=== PATIENT | male | born 1965 | race Caucasian/White ===

== ENCOUNTER 2024-04-06 08:52 | Outpatient (OUT) | payer OTHER, SELFPAY ==
[2024-04-06 09:15] LABS: Basophils Percent Auto 0.3 % (0.2-2.0); Eosinophils Absolute Auto 0.2 10^3/uL (0.0-0.7); Eosinophils Percent Auto 2.8 % (0.9-7.0); Hematocrit 40.4 % (42.0-54.0); Hemoglobin 13.8 g/dL (14.0-18.0); Immature Granulocytes Abs Auto 0.01 10^3/uL (0.00-0.03); Immature Granulocytes Pct Auto 0.2 % (0.0-0.5); Lymphocytes Absolute Auto 1.7 10^3/uL (1.2-3.8); Lymphocytes Percent Auto 29.2 % (20.5-60.0); Mean Corpuscular HGB Conc 34.2 g/dL (29.9-35.2); Mean Corpuscular Hemoglobin 30.9 pg (25.9-34.0); Mean Corpuscular Volume 90.4 fL (80.0-94.0); Mean Platelet Volume 9.1 fL (9.5-13.5); Monocytes Absolute Auto 0.7 10^3/uL (0.3-0.8); Monocytes Percent Auto 11.3 % (1.7-12.0); Neutrophils Absolute Auto 3.2 10^3/uL (1.4-6.5); Neutrophils Percent Auto 56.2 % (43.0-75.0); Platelet Count 215 10^3/uL (150-450); Red Blood Count 4.47 10^6/uL (4.70-6.10); Red Cell Distribution Width 12.5 % (11.0-15.0); White Blood Count 5.8 10^3/uL (4.0-11.0)
[2024-04-06 10:07] LABS: Estimated Average Glucose 105 mg/dL; Glycohemoglobin A1C 5.3 % (4.5-6.2)
[2024-04-06 11:03] LABS: Prostate Specific Antigen Scrn 0.68 ng/mL (<=4.00)
[2024-04-06 11:08] LABS: Alanine Aminotransferase 21 U/L (16-63); Albumin Globulin Ratio 1.1; Albumin Level 3.7 g/dL (3.4-5.0); Alkaline Phosphatase 39 U/L (46-116); Anion Gap 13.3; Aspartate Amino Transferase 16 U/L (15-37); Bilirubin Total 0.7 mg/dL (0.2-1.0); Calcium 8.8 mg/dL (8.5-10.1); Carbon Dioxide 23.3 mmol/L (21.0-32.0); Chloride 103 mmol/L (98-107); Cholesterol 186 mg/dL (<=200); Estimated GFR (African America >60 (>=60 mL/min/1.73m^2); Estimated GFR (Non-African Ame >60 (>=60 mL/min/1.73m^2); Free T3 2.93 pg/mL (2.18-3.98); Globulin 3.3 g/dL; Glucose 92 mg/dL (74-106); HDL Cholesterol 37 mg/dL (40-60); Potassium 3.6 mmol/L (3.5-5.1); Sodium 136 mmol/L (136-145); Thyroid Stimulating Hormone 2.259 uIU/mL (0.358-3.740); Triglycerides 163 mg/dL (<=150); VLDL CHOLESTEROL 32.6 mg/dL
[2024-04-07 04:08] LABS: Insulin 19.3 uIU/mL (2.6-24.9)
== END 2024-04-06 08:53 | disposition home or self-care (01) ==
LOC: LAB 08:54
PROVIDERS: PCP Family Medicine; Visit Provider Family Medicine
DX: Z00.00 Encounter for general adult medical examination without abnormal findings (principal); E05.90 Thyrotoxicosis, unspecified without thyrotoxic crisis or storm
CPT/HCPCS: 36415; 80053; 80061; 83036; 83525; 84436; 84443; 84481; 85025; G0103

== ENCOUNTER 2024-04-10 09:00 | Outpatient (REF) | payer OTHER, SELFPAY ==
[2024-04-10 10:40] LABS: Internal Control Within Normal Limits; Occult Blood Positive
== END 2024-04-10 09:01 | disposition home or self-care (01) ==
LOC: LAB 09:00
PROVIDERS: PCP Family Medicine; Visit Provider Family Medicine
DX: Z00.00 Encounter for general adult medical examination without abnormal findings (principal)
CPT/HCPCS: G0328

== ENCOUNTER 2024-05-28 10:48 | Outpatient (OUT) | payer OTHER, SELFPAY ==
--- OUTSIDE RECORDS SUMMARY | 2024-05-28 10:57 | XMS_ITS | CCD ---
Author Organization [facility] Care Team Providers Care Technical Service Representative Name Role Phone JASIEL WILKERSON Admitting Unavailable JASIEL WILKERSON Attending Unavailable PANDA ANSARI Primary Care Unavailable [place] Procedure Practitioner Unavailab le EBRAHEIM, MIKE Admitting Unavailable EBRAHEIM, MIKE Primary Care Unavailable EBRAHEIM, MIKE Attending Unavailable EBRAHEIM, MIKE Referring Unavailable EBRAHEIM, MIKE Surgeon Unavailable VALERIE SAWANT Surgeon Unavailable [place] Procedure Practitioner Unavailab Panda Marvin Primary Care Physician Faustino TORRES Attending Unavailable Panda Ansari Referring Unavailable Allergies Allergy Classification Reported Allergen(s) Allergy Type Date of Onset Reaction(s) Facility (2 sources) Acetaminophen / oxyCODONE; Translations: [PERCOCET] Drug Allergy 5 [facility] Repository (1 source) Acetaminophen / oxyCODONE; Translations: [acetaminophen-ox ycodone] Drug Allergy Nausea and vomiting (disorder) [facility] (1 source) No Known Medication Allergies; Translations: [No Known Medication Allergies] Propensity to adverse reactions (disorder) [facility] Repository Medications Current Medications Medication Drug Class(es) Dates Sig (Normalized) Sig (Original) aspirin 81 mg delayed release oral tablet (1 source) Platelet Aggregation Inhibitor, Nonsteroidal Anti-inflammatory Drug Start: 05-09-2024 take 1 tablet by mouth once daily aspirin 81 mg Oral EC Tab 81 mg = 1 tab(s), Oral, Daily, Refills(s) 0 Start Date: 05/09/24 Status: Ordered Fish Oils (1 source) Start: 05-09-2024 take 1000 mg by mouth once daily [place]-3 Fish Oil 1,000 mg, Oral, Daily, Refills(s) 0 Start Date: 05/09/24 Status: Ordered Multi Vitamins oral tablet (1 source) Start: 05-09-2024 take 1 tablet by mouth once daily Multi Vitamins oral tablet 1 tab(s), Oral, Daily, Refill(s) 0 Start Date: 05/09/24 Status: Ordered Problems Problem Classification Problem Date Documented Da te Episodic/Chronic Cancer of head and neck (1 source) 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 Other gastrointestinal disorders (1 source) Abnormal feces; Translations: [Other fecal abnormalities] Onset: 05-09-2024 Episodic Other gastrointestinal disorders (1 source) Occult blood in stools 05-09-2024 Episodic Other injuries and conditions due to external causes (4 sources) Other specified injury of left quadriceps muscle, fascia and tendon, subsequent encounter; Translations: [OTH INJ LT QUAD MUSC FASC TEND SUB] Onset: 07-21-2018 Episodic Other nutritional; endocrine; and metabolic disorders (1 source) Body mass index 30+ - obesity 05-09-2024 Chronic Other nutritional; endocrine; and metabolic disorders (1 source) Obesity caused by energy imbalance 04-16-2024 Chronic Results Test Name Value Interpretation Reference Range [facility] ity Ambulatory Visit Summaryon 1 07-09-2023 Ambulatory Visit Summary Ambulatory Visit Summary RANDY LEROY Danya :1965 Visit Date:05/09/2024 Ambulatory Visit Instructions Your Diagnosis Positive fecal occult blood test Your Care Team Attending Physician - BRIAN BERNARDO, Faustino Ramesh Primary Care Physician - Panda Ansari MD Referring Physician - Panda Ansari MD This Is Your Medications List Contact prescribing physician if questions or concerns aspirin (aspirin 81 mg Oral EC Tab) multivitamin (Multi Vitamins oral tablet) omega-3 polyunsaturated fatty acids (Springdale-3 Fish Oil) Procedures Performed Arthroplasty of right hip, Left quadriceps injury, Repair of right inguinal hernia. Discharge Vitals Heart Rate (Peripheral) 72 Respiratory Rate 16 Blood Pressure 136/96 Height 188 cm Height 74 in Weight 118 kg Weight 259.6 lb BMI 33.39 Medications What How Much When Instructions Unchanged aspirin (aspirin 81 mg Oral EC Tab) 1 Tablets By Mouth Every day Contact prescribing physician if questions or concerns Unchanged multivitamin (Multi Vitamins oral tablet) 1 Tablets By Mouth Every day Contact prescribing physician if questions or concerns Unchanged omega-3 polyunsaturated fatty acids (Springdale-3 Fish Oil) 1,000 Milligram By Mouth Every day Contact prescribing physician if questions or concerns Allergies Percocet (Nausea and vomiting) Problems Ongoing - Any problem that you are currently receiving treatment for. BMI 33.0-33.9,adult Carcinoma in situ of lip Obesity due to excess calories Positive fecal occult blood test Patient Survey You may receive a survey via text or e-mail asking about your office visit. Please share your experience with us by completing your survey. We appreciate your feedback and thank you for choosing us for your care. Normal [facility] Vital Signs Date Time Vital Sign Value Performing Clinician Aurelia harding 05-09-2024 14:23-0500 Blood Pressure Location Faustino NILL [facility] 05-09-2024 14:23-0500 Diastolic blood pressure 96 mm[Hg] Faustino NILL [facility] 05-09-2024 14:23-0500 Heart rate 72 /min Faustino NILL [facility] 05-09-2024 14:23-0500 Respiratory rate 16 /min Price SquidL [facility] 05-09-2024 14:23-0500 Systolic blood pressure 136 mm[Hg] [facility] Encounter Date Encounter Type Care Provider Facility Start: 05-09-2024 End: 05-09-2024 ambulatory Faustino TORRES Facility:[facility] Start: 05-09-2024 End: 05-09-2024 Patient encounter procedure Faustino Ramesh NILL [facility] Start: 05-07-2024 ambulatory Faustino TORRES Facility:[facility] Start: 04-12-2024 ambulatory Faustino TORRES Facility:[facility] Start: 07-21-2018 End: 10-13-2018 Patient encounter procedure JASIEL WILKERSON Facility: Start: 06-02-2018 End: 06-03-2018 Patient encounter procedure [place] Facility:[facility] Procedures Date Procedure Procedure Detail Performing Clinician Start: 06-02-2018 ANESTH UPPER LEG SURGERY VALERIE SAWANT Start: 06-02-2018 REPAIR OF THIGH MUSCLE MIKE EBRAHEIM Left quadriceps injury Shadi josefina TORRES Repair of joint of r ight hip Faustino TILLMANL Repair of right ingu inal hernia Faustino TILLMANL Immunizations Immunization Date Immunization Notes Care Provider Riaz ritchie 07-13-2021 SARS-CoV-2 (COVID-19 ) mRNA-[address] [facility] Comment on above: Result Comment: 2023: TPV50 11-14-2020 SARS-CoV-2 (COVID-19 ) Ad26 vaccine, recombinant Faustino TILLMANL [facility] Comment on above: Result Comment: 2023: --[employer] POPULATION/OCCUPATION-- Payers Date Payer Category Payer Unknown [id number] 1965 Unknown [id number] 1965 Unknown [id number] [id number] 1965 Unknown [id number] 1958 Unknown [id number] Social History Date Type Detail Facility Start: 05-09-2024 Tobacco smoking status Never s moked tobacco (finding) [facility] Tobacco smoking status Never Fishe [facility] Sex Assigned At Male [facility] Functional Status Date Assessment Result Facility 05-09-2024 Functional Status N/A [facility] Clinical Note 05-09-2024 Note Date & Type Note Facility 05-09-2024 Note General Surgery Offi ce/Clinic Note Chief Complaint consultation for positive occult stool HPI Staff 59 year old male presents on consultation from Dr. Hoy for positive occult stool. Denies abdominal or rectal pain. No rectal bleeding or change in bowel habits. Denies nausea or vomiting. No unexplained weight loss. Never had colonoscopy in the past. No known family history of colon cancer. History of Present Illness 59 yo male referred for positive fecal occult blood test; denies change in bms or gross blood in stools, no abd complaints; abd operations significant for RIHR, no previous colonoscopy; on baby asa, no NSAID use; no tobacco use; no fmhx of GI malignancy or IBD. Review of Systems PHQ Score Initial Depression Screen Score: 0 SCORE ROS - Provider Constitutional: no fever, no sweats, no weight loss. Eyes: no glasses, no blurred vision, no visual loss. ENMT: no dentures, no hoarseness, no swallowing difficulties, no hearing loss, no ear infection(s), no nose bleeds. Cardiovascular: normal blood pressure, no chest pain, regular heartbeat, no heart murmur. Respiratory: no shortness of breath, no cough, no asthma, no wheezing. Gastrointestinal: no nausea, no vomiting, no diarrhea, no constipation, no blood in stool, no change in bowel habits, no abdominal pain, no hepatitis. Genitourinary: no kidney stones, no urine infection, no dysuria. Musculoskeletal: no pain, no weakness. Skin: no changing moles, no rash, no skin lumps. Neurologic: no seizures, no epilepsy, no headache. Psychiatric: no emotional or psychiatric problem. Heme/Lymph: no bleeding problems, no anemia, no blood clots, no transfusions. Allergy/Immunologic: no swollen lymph nodes/glands, no IV drug abuse. Other: Additional ROS info: Except as noted in the above Review of Systems and in the History of Present Illness, all other systems have been reviewed and are negative or noncontributory. Physical Exam Vitals & Measurements HR: 72(Peripheral) RR: 16 BP: 136/96 HT: 74 in HT: 188 cm WT: 118 kg WT: 259.6 lb BMI: 33.39 HEENT: normal conjunctiva, sclera clear, no scleral icterus, EOM intact, PERRLA, oral mucosa moist without lesions. Neck: trachea midline, no mass, symmetric, no thyromegaly or nodules, no adenopathy Respiratory: lungs CTA, respirations non labored. Cardiovascular: regular rate and rhythm, no murmur, no pedal edema or varicosities. Gastrointestinal: soft, non distended, no tenderness, no masses, no palpable hernias, diastasis recti no, no hepatosplenomegaly; normal bs Lymphatic: no cervical adenopathy, no supraclavicular adenopathy. Musculoskeletal: normal gait, digits and nails without infection, nodes, cyanosis, clubbing. Skin: no rashes, no lesions, no ulcers, no subcutaneous nodules, induration. Psychiatric/Neuro: oriented to time, place, person, judgement normal, affect appropriate for age, insight intact, no focal deficits. Tests: labs reviewed, review of old records completed , Discussed surgical options, risks, and possible complications with patient. Assessment/Plan 1. Positive fecal occult blood test (R19.5: Other fecal abnormalities) plan colonoscopy under anesthesia, informed consent obtained. Follow-up No qualifying data available Problem List/Past Medical History Ongoing BMI 33.0-33.9,adult Carcinoma in situ of lip Obesity due to excess calories Positive fecal occult blood test Historical No qualifying data Procedure/Surgical History Arthroplasty of right hip, Left quadriceps injury, Repair of right inguinal hernia. Medications aspirin 81 mg Oral EC Tab, 81 mg= 1 tab(s), Oral, Daily Multi Vitamins oral tablet, 1 tab(s), Oral, Daily Springdale-3 Fish Oil, 1000 mg, Oral, Daily Allergies Percocet (Nausea and vomiting) Social History Alcohol Never., 05/06/2024 Substance Abuse Never., 05/06/2024 Tobacco Never (less than 100 in lifetime) Tobacco Use:. Never Smokeless Tobacco Use:., 05/09/2024 Family History Heart disease: Father. Immunizations Vaccine Date Status Comments SARS-CoV-2 (COVID-19) mRNA-1273 vaccine 07/13/2021 Recorded 2024-04-16: TPV50 SARS-CoV-2 (COVID-19) Ad26 vaccine 11/14/2020 Recorded 2024-04-16: --SELECT TARGET POPULATION/OCCUPATION-- [facility] Comment on above: Result Comment: Elec tronically Signed By: BRIAN BERNARDO, Faustino Gray\Date and Time Signed: 05/09/24 14:44 EST Evaluation + Plan note Note Date & Type Note Facility Evaluation + Plan note No data available for this section [facility] Hospital Discharge instructions Note Date & Type Note Facility Hospital Discharge instructions No data available for this section [facility] Progress note Note Date & Type Note Facility Progress note No data available for this section [facility] Summary Purpose Family History No Family History Records FoundNo Family History Records Found No data available for this section No Family History Records Found Advance Directives No Advanced Directives Records FoundNo Advanced Directives Records FoundNo Advanced Directives Records Found Additional Source Comments (unrecognized sect ion and content) No Status Records FoundNo Status Records FoundNo Status Records Found INFORMATION SOURCE (unrecogn ized section and content) DATE CREATED AUTHOR 10/14/2018 [facility] DATE CREATED AUTHOR AUTHOR'S ORGANIZ ATION 06/04/2020 [facility] DATE CREATED AUTHOR AUTHOR'S ORGANIZ ATION 05/11/2024 [facility] Patient Care team informatio n (unrecognized section and content) Personnel Name: Panda Ansari MD Address: Address: [address] [place] [address] FOR RECORDS PERTAINING TO PATIENTS WHO ARE OR HAVE BEEN ENROLLED IN A CHEMICAL DEPENDENCY/SUBSTANCEABUSE PROGRAM, SOME INFORMATION MAY BE OMITTED. This clinical summary was aggregated from multiple sources. Caution should be exercised in using it in the provision of clinical care. This summary normalizes information from multiple sources, and as a consequence, information in this document may materially change the coding, format and clinical context of patient data. In addition, data may be omitted in some cases. CLINICAL DECISIONS SHOULD BE BASED ON THE PRIMARY CLINICAL RECORDS. [facility]. provides no warranty or guarantee of the accuracy or completeness of information in this document.
== END 2024-05-28 10:49 | disposition home or self-care (01) ==
LOC: PST 10:48
PROVIDERS: PCP Family Medicine; Visit Provider Surgery
DX: Z01.818 Encounter for other preprocedural examination (principal); R19.5 Other fecal abnormalities

== ENCOUNTER 2024-06-06 10:02 | Day surgery (SDC) | payer OTHER, SELFPAY ==
--- NOTE | 2024-06-06 | OP_ITS ---
OPERATION DATE: 06/06/2024 PREOPERATIVE DIAGNOSIS: Positive fecal occult blood test. POSTOPERATIVE DIAGNOSIS: Sigmoid diverticulosis, mild. PROCEDURE: Colonoscopy to cecum. SURGEON: Faustino Escobar M.D. ANESTHESIA: Monitored anesthesia care. ESTIMATED BLOOD LOSS: Zero. INDICATIONS AND CONSENT: Patient is a 59-year-old male who presents for evaluation of positive fecal occult blood test. Indications, risks, benefits, alternatives of proceeding with colonoscopy were explained extensively to the patient, including the risks of bleeding, colon perforation or anesthetic complications. All of his questions were answered. Informed consent was obtained. PROCEDURE: Patient brought to the operating room, placed in the left lateral decubitus position. Monitored anesthesia care was provided. Rectal exam was performed which showed no masses or blood. The scope was inserted into the anal canal. Under direct visualization was advanced. With the aid of abdominal compression, it was advanced to the cecum where cecal markings were clearly identified. Upon withdrawal of the scope, mucosal surfaces were carefully examined. There were no mass lesions or polyps. No inflammatory changes or ulcerations. There was mild sigmoid diverticulosis without inflammatory changes or scarring. The scope was retroflexed in the anal canal. There was no significant hemorrhoidal disease. Scope was then withdrawn. Patient tolerated procedure well, was sent to recovery room in good condition.f/u screening colonoscopy should be in 10 years. CC: Zohaib Ansari M.D. [facility] CENTERJose Maria
[2024-06-06 10:10] VITALS: BP 165/87; PULSE 86; TEMP 36.1; O2SAT 98; BMI 32.6
--- OUTSIDE RECORDS SUMMARY | 2024-06-06 10:16 | XMS_ITS | CCD ---
Author Organization [facility] Care Team Providers Care Shipper Name Role Phone JASIEL WILKERSON Admitting Unavailable JASIEL WILKERSON Attending Unavailable PANDA ANSARI Primary Care Unavailable [place] Procedure Practitioner Unavailab le EBRAHEIM, MIKE Admitting Unavailable EBRAHEIM, MIKE Primary Care Unavailable EBRAHEIM, MIKE Attending Unavailable EBRAHEIM, MIKE Referring Unavailable EBRAHEIM, MIKE Surgeon Unavailable VALERIE SAWANT Surgeon Unavailable [place] Procedure Practitioner Unavailab Panda Marvin Primary Care Physician [phone] Faustino TORRES Attending Unavailable Panda Ansari Referring Unavailable Allergies Allergy Classification Reported Allergen(s) Allergy Type Date of Onset Reaction(s) Facility (2 sources) Acetaminophen / oxyCODONE; Translations: [PERCOCET] Drug Allergy 5 [facility] Repository (1 source) Acetaminophen / oxyCODONE; Translations: [acetaminophen-ox ycodone] Drug Allergy Nausea and vomiting (disorder) [facility] (1 source) No Known Medication Allergies; Translations: [No Known Medication Allergies] Propensity to adverse reactions (disorder) [facility] Repository Medications Current Medications Medication Drug [...] take 1000 mg by mouth once daily [place]-3 Fish Oil 1,000 mg, Oral, Daily, Refills(s) [...] Results Test Name Value Interpretation Reference Range [facility] ity Ambulatory Visit Summaryon 1 07-09-2023 Ambulatory [...] Vitamins oral tablet) omega-3 polyunsaturated fatty acids ([place]ribner-3 Fish Oil) Procedures Performed Arthroplasty of right [...] or concerns Unchanged omega-3 polyunsaturated fatty acids ([place]ribner-3 Fish Oil) 1,000 Milligram By Mouth Every [...] for choosing us for your care. Normal [facility] Vital Signs Date Time Vital Sign Value Performing Clinician Aurelia harding 05-09-2024 14:23-0500 Blood Pressure Location Faustino NILL [facility] 05-09-2024 14:23-0500 Diastolic blood pressure 96 mm[Hg] Faustino NILL [facility] 05-09-2024 14:23-0500 Heart rate 72 /min Faustino NILL [facility] 05-09-2024 14:23-0500 Respiratory rate 16 /min [employer] [facility] 05-09-2024 14:23-0500 Systolic blood pressure 136 mm[Hg] [facility] Date Encounter Type Care Provider Facility Start: 05-09-2024 End: 05-09-2024 ambulatory Faustino TORRES Facility:[facility] Start: 05-09-2024 End: 05-09-2024 Patient encounter procedure Faustino Ramesh NILL [facility] Start: 05-07-2024 ambulatory Faustino TORRES Facility:[facility] Start: 04-12-2024 ambulatory Faustino TORRES Facility:[facility] Start: 07-21-2018 End: 10-13-2018 Patient encounter procedure JASIEL WILKERSON Facility: Start: 06-02-2018 End: 06-03-2018 Patient encounter procedure [place] Facility:[facility] Procedures Date Procedure Procedure Detail Performing [...] SARS-CoV-2 (COVID-19 ) mRNA-1273 vaccine Faustino TILLMANL [facility] Comment on above: Result Comment: 2023: TPV50 11-14-2020 SARS-CoV-2 (COVID-19 ) Ad26 vaccine, recombinant Faustino TILLMANL [facility] Comment on above: Result Comment: 2023: --SELECT T[employer] POPULATION/OCCUPATION-- Payers Date Payer Category Payer Unknown [id number] 1965 Unknown [id number] 1965 Unknown [id number] 1965 Unknown [id number] 1959 Unknown [id number] Social History Date Type Detail Facility Start: 05-09-2024 Tobacco smoking status Never s moked tobacco (finding) [facility] Tobacco smoking status Never Fishe [facility] Sex Assigned At Male [facility] Functional Status Date Assessment Result Facility 05-09-2024 Functional Status N/A [facility] Clinical Note 05-09-2024 Note Date & Type [...] Vitamins oral tablet, 1 tab(s), Oral, Daily Scribner-3 Fish Oil, 1000 mg, Oral, Daily Allergies Percocet (Nausea and vomiting) Social History Alcohol Never., 05/06/2024 Substance Abuse Never., 05/06/2024 Tobacco Never (less than 100 in lifetime) Tobacco Use:. Never Smokeless Tobacco Use:., 05/09/2024 Family History Heart disease: Father. Immunizations Vaccine Date Status Comments SARS-CoV-2 (COVID-19) mRNA-1273 vaccine 07/13/2021 Recorded 2024-04-16: TPV50 SARS-CoV-2 (COVID-19) Ad26 vaccine 11/14/2020 Recorded 2024-04-16: --SELECT TARGET POPULATION/OCCUPATION-- [facility] Comment on above: Result Comment: Elec tronically Signed By: BRIAN BERNARDO, Faustino Gray\Date and Time Signed: 05/09/24 14:44 EST Evaluation + Plan note Note Date & Type Note Facility Evaluation + Plan note No data available for this section [facility] Hospital Discharge instructions Note Date & Type Note Facility Hospital Discharge instructions No data available for this section [facility] Progress note Note Date & Type Note Facility Progress note No data available for this section [facility] Summary Purpose Family History No Family [...] and content) DATE CREATED AUTHOR 10/14/2018 [facility] DATE CREATED AUTHOR AUTHOR'S ORGANIZ ATION 06/04/2020 [facility] DATE CREATED AUTHOR AUTHOR'S ORGANIZ ATION 05/11/2024 [facility] Patient Care team informatio n (unrecognized section and content) Personnel Name: Panda Ansari MD Address: Address: [address] [place] [address] FOR RECORDS PERTAINING TO PATIENTS WHO ARE [...] BE BASED ON THE PRIMARY CLINICAL RECORDS. [facility] [employer] [facility]. provides no warranty or guarantee of the accuracy or completeness of information in this document.
[2024-06-06] MEDS: 0.9 % SODIUM CHLORIDE 500 ML 50 ML IV (10:29)
[2024-06-06 12:43] VITALS: BP 90/53; PULSE 86; O2SAT 94
[2024-06-06 13:00] VITALS: BP 114/83; PULSE 89; O2SAT 96
== END 2024-06-06 13:25 | disposition home or self-care (01) ==
PROVIDERS: PCP Family Medicine; Visit Provider Surgery
PROC: (CPT 00811; principal; 2024-06-06 11:15)
DX: R19.5 Other fecal abnormalities (principal); K57.30 Diverticulosis of large intestine without perforation or abscess without bleeding; I48.91 Unspecified atrial fibrillation
CPT/HCPCS: 00811; 45378; J1100

== ENCOUNTER 2025-02-25 17:01 | Outpatient (OUT) | payer OTHER, SELFPAY ==
--- OUTSIDE RECORDS SUMMARY | 2023-12-12 12:00 | XMS_ITS ---
Author Organization The [facility] in [place] Address [address] [place] [address] Care Team Providers Care Certified Alcohol Counselor Name Role Phone George Muhammad Primary Care Provider [phone] PANDA MUHAMMAD Unavailable [phone] Allergies No Known Allergies REASON FOR VISIT Wellness / swollen leg, hit right leg with electrical box Social History Tobacco Use: Social History Observation Description Date Details (start date - stop date) Never Smoker NA - NA Tobacco Control (Standard) Question Answer Notes Tobacco use: Nonsmoker AUDIT-C (Standard) Question Answer Notes Did you have a drink contain ing alcohol in the past year? Yes How often did you have six o r more drinks on one occasion in the past year? Never (0 point) How many drinks did you have on a typical day when you were drinking in the past year? 1 or 2 drinks (0 point) How often did you have a dri nk containing alcohol in the past year? 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 Problem Bronchitis (11115345) Bronchitis (J40) Active confirmed Vital Signs Weight 269 lbs 12/12/2023 Height 74 in 12/12/2023 Blood pressure systolic 132 mm Hg 12/12/19 24 Blood pressure diastolic 82 mm Hg 024 BMI 34.53 kg/m2 12/12/2023 Encounters Encounter Location Date Provider Diagnosis [facility] [address] [facility] [address] 12/12/2023 PANDA MUHAMMAD Well adult Z00.00 a nd Snoring R06.83 Assessments Encounter Date Diagnosis (ICD Code) Assessment Notes Treatment Notes Treatment Clinical Notes Section Notes 12/12/2023 Well adult (ICD-10 - Z00.00) 12/12/2023 Snoring (ICD-10 - R06.83) defers on sleep study Plan Of Treatment Treatment Notes Assessment Notes Snoring defers on sleep stud y Pending Test Test Name Order Date CMP (COMPLETE METABOLIC PANEL) 4 HEMOGLOBIN A1C (GLYCO) 12/12/2023 INSULIN, TOTAL 12/12/2023 LIPID PANEL (CHOL/TRIG/HDL/LDL) 12/12/19 24 CBC WITH DIFF 12/12/2023 PSA, TOTAL 12/12/2023 STOOL OCCULT BLOOD 12/12/2023 THYROID PANEL (T4/TSH/FREE T3) 4 Progress Notes * Smith HEATH PDOB:1965 (58 yo M)Acc No.[id number]:12/12/2023 Progress Note Patient: Smith CARVALHO Provider: Jose Maria Muhammad M.D. :1965 A ge:58 Y S ex:Male Date:12/12/2023 Address:[address] [place], [place] [id number] Check In:04:00 PM ESTCheck O ut:04:40 PM EST Subjective: * Chief Complaints: * W ellness / swollen leg, hit right leg with electrical box * HPI: G eneral: R leg swellign from time to time - no calf pain. * ROS: E ENT: hearing changes d enies, denies. v isual changes d enies, denies. n on-healing mouth sores d enies, denies. s wollen glands or neck lumps?denies, denies. h oarseness d enies, denies. s ore throat d enies, denies. d ifficulty swallowing d enies, denies. n ose bleeds d enies, denies. n bonnie congestion d enies, denies. e ar ache d enies, denies. e ar discharge d enies, denies.?ringing in ears d enies, denies. l ight sensitivity d enies, denies. e ye pain denies, denies. b lurring d enies, denies. e ye irritation d enies, denies. d ouble vision d enies, denies. v ision loss d enies, denies. G eneral/Constitutional: Sweats: D enies, Denies. F atigue d enies, denies.?Sleep problems d enies, denies. A norexia d enies, denies. M alaise d enies, denies. W eight loss d enies, denies. F atigue or Weakness d enies, denies. F ever or Chills d enies, denies. C ardiovascular: Shortness of Breath w/lying flat d enies, denies. L ightheadedness/dizziness d enies, denies. C hest tightness/ heavy pressure d enies, denies.?Swelling of legs, ankles, or feet d enies, denies. W aking up with shortness of breath denies, denies. C hest pain d enies, denies. P alpitations d enies, denies.?Weight gain d enies, denies. R espiratory: Chronic or frequent cough d enies, denies. C oughing up blood d enies, denies. D ifficulty breathing d enies, denies. P roductive cough?denies, denies. S noring d enies, denies. S hortness of breath that awakens from sleep (PND) d enies, denies. C hest pain d enies, denies. S putum production d enies, denies. W heezing d enies, denies. M usculoskeletal: Joint pain d enies, denies. J oint Fluid d enies, denies. B ack pain d enies, denies. K nee pain d enies, denies. N randell pain d enies, denies. J oint Stiffness d enies, denies. M uscle cramps d enies, denies. Weakness of muscles d enies, denies. A rthritis d enies, denies. M uscle aches?denies, denies. P ain in shoulder(s) d enies, denies. S wollen joints d enies, denies. * Active Problem List J40 Bronchitis Modified On:12/12/2023 Status:confirmed D04.0 CA in situ skin lip Modified On:12/12/2023 Status:confirmed Z00.00 Well adult Modified On:12/12/2023 Status:confirmed R06.83 Snoring Modified On:12/12/2023 Status:confirmed * Medical History: * Surgical History: r ight hip replacement 2017 torn left quad 2018 hernia repair * Hospitalization/Major Diagno stic Procedure: N o Hospitalization History. * Family History: F ather: . M other: alive. M aternal uncle: diagnosed with Cancer. * Social History: T obacco Use: T obacco Control (Standard) T obacco use: N onsmoker D rug/Alcohol: A RYAN-C (Standard) D id you have a drink containing alcohol in the past year? Y es H ow often did you have six or more drinks on one occasion in the past year? N ever (0 point) H ow many drinks did you have on a typical day when you were drinking in the past year? 1 or 2 drinks (0 point) H ow often did you have a drink containing alcohol in the past year? 2 to 4 times a month (2 points) P oints 2 I nterpretation N egative * Medications: N one * Allergies: N .K.D.A.no[Allergies Verified] Objective: * Vitals: W t:269lbs, Ht: 74 in, BP:132/82mm Hg, BMI:34.53Index, Ht-cm: 187.96 cm, Wt-k.02 kg. * Examination: P hysical Exam: GENERAL: w ell developed, well nourished, in no acute distress , well developed, well nourished, in no acute distress. HEAD: n ormocephalic/atraumatic , normocephalic/atraumatic.? EYES: p upils equal, round and reactive to light, conjunctivae and sclerae normal , pupils equal, round and reactive to light, conjunctivae and sclerae normal.? EARS: n o deformity or lesion of external ear, canals and TM appear normal bilaterally, TM's intact, not inflamed with normal light reflex, hearing grossly normal to conversational speech , no deformity or lesion of external ear, canals and TM appear normal bilaterally, TM's intact, not inflamed with normal light reflex, hearing grossly normal to conversational speech. NOSE: n o deformity, discharge, inflammation, or lesions , no deformity, discharge, inflammation, or lesions. MOUTH: m ucous membranes moist, normal oropharynx and posterior pharynx without lesions or exudates, tongue normal, dentition normal , mucous membranes moist, normal oropharynx and posterior pharynx without lesions or exudates, tongue normal, dentition normal. NECK: n randell supple, no masses or palpable cervical nodes, trachea midline, thyroid without nodules, masses, tenderness, or enlargement , neck supple, no masses or palpable cervical nodes, trachea midline, thyroid without nodules, masses, tenderness, or enlargement. CHEST: n o chest wall deformity, no chest wall tenderness , no chest wall deformity, no chest wall tenderness. LUNGS: n ormal respiratory effort and clear to auscultation, no wheezes, rales, or rhonchi, good air exchange , normal respiratory effort and clear to auscultation, no wheezes, rales, or rhonchi, good air exchange. CARDIO: r egular rate and rhythm, normal S1 and S2, nor murmur, rub, or gallop , regular rate and rhythm, normal S1 and S2, nor murmur, rub, or gallop. PULSES: n ormal capillary refill , normal capillary refill.? ABDOMEN: s oft, non-distended, non-tender, no masses , soft, non-distended, non-tender, no masses. MUSCULOSKELETAL: n o deformity or scoliosis noted, normal range of motion, joints normal, no erythema, edema, effusion, or ecchymosis , no deformity or scoliosis noted, normal range of motion, joints normal, no erythema, edema, effusion, or ecchymosis. EXTREMITY: n o clubbing, cyanosis, edema, or deformity with normal ROM in both upper and lower bilateral extremities , no clubbing, cyanosis, edema, or deformity with normal ROM in both upper and lower bilateral extremities. NEUROLOGIC: g rossly normal , grossly normal. SKIN: n o rashes, ulcerations, or suspicious lesions , no rashes, ulcerations, or suspicious lesions. LYMPH NODES: n o cervical adenopathy, nodes normal , no cervical adenopathy, nodes normal. MENTAL STATUS: a lert and oriented x3, normal mood and affect , alert and oriented x3, normal mood and affect. Assessment: * Assessment: 1. W ell adult - Z00.00 (Primary) 2 . S noring - R06.83 Plan: * Treatment: 2. S doris Notes: defers on sleep study * Procedure Codes: * Preventive Medicine: Screenings/Counseling: B W[place] ACTION PLAN Above Normal BMI Follow-up D ietary management education, guidance, and counseling * * Sign off status: Completed Visit Status: C HK (Check Out) true * Provider: Jose Maria Muhammad M.D. Date: 12/12/2023 Generated for Chace sanford/Shashi/eTranmariahitting on: 02/25/2025 05:05 PM EDT History and Physical Notes * Examination Category Sub-Category Detail Notes Category Not es Physical Exam GENERAL: well developed, well nourished, in no acute distress , well developed, well nourished, in no acute distress HEAD: normocephalic/atraum atic , normocephalic/atraumatic EYES: pupils equal, round and reactive to light, conjunctivae and sclerae normal , pupils equal, round and reactive to light, conjunctivae and sclerae normal EARS: no deformity or lesi on of external ear, canals and TM appear normal bilaterally, TM's intact, not inflamed with normal light reflex, hearing grossly normal to conversational speech , no deformity or lesion of external ear, canals and TM appear normal bilaterally, TM's intact, not inflamed with normal light reflex, hearing grossly normal to conversational speech NOSE: no deformity, discha rge, inflammation, or lesions , no deformity, discharge, inflammation, or lesions MOUTH: mucous membranes rosendo st, normal oropharynx and posterior pharynx without lesions or exudates, tongue normal, dentition normal , mucous membranes moist, normal oropharynx and posterior pharynx without lesions or exudates, tongue normal, dentition normal NECK: neck supple, no mass es or palpable cervical nodes, trachea midline, thyroid without nodules, masses, tenderness, or enlargement , neck supple, no masses or palpable cervical nodes, trachea midline, thyroid without nodules, masses, tenderness, or enlargement CHEST: no chest wall deform ity, no chest wall tenderness , no chest wall deformity, no chest wall tenderness LUNGS: normal respiratory e ffort and clear to auscultation, no wheezes, rales, or rhonchi, good air exchange , normal respiratory effort and clear to auscultation, no wheezes, rales, or rhonchi, good air exchange CARDIO: regular rate and rhy thm, normal S1 and S2, nor murmur, rub, or gallop , regular rate and rhythm, normal S1 and S2, nor murmur, rub, or gallop PULSES: normal capillary ref ill , normal capillary refill ABDOMEN: soft, non-distended, non-tender, no masses , soft, non-distended, non- tender, no masses RECTAL: MUSCULOSKELETAL: no deformity or scol iosis noted, normal range of motion, joints normal, no erythema, edema, effusion, or ecchymosis , no deformity or scoliosis noted, normal range of motion, joints normal, no erythema, edema, effusion, or ecchymosis EXTREMITY: no clubbing, cyanosi s, edema, or deformity with normal ROM in both upper and lower bilateral extremities , no clubbing, cyanosis, edema, or deformity with normal ROM in both upper and lower bilateral extremities NEUROLOGIC: grossly normal , christopher ssly normal SKIN: no rashes, ulceratio ns, or suspicious lesions , no rashes, ulcerations, or suspicious lesions LYMPH NODES: no cervical adenopat hy, nodes normal , no cervical adenopathy, nodes normal MENTAL STATUS: alert and oriented x 3, normal mood and affect , alert and oriented x3, normal mood and affect
--- OUTSIDE RECORDS SUMMARY | 2024-04-07 07:46 | XMS_ITS ---
Author Organization The [facility] in [place] Address [address] [place] [address] Care Team Providers Care Grain Combiner Name Role Phone George Ansari Primary Care Provider Encounters Encounter Location Date Provider Diagnosis [facility] [address] [place] [address] 04/07/2024 George Ansari Plan Of Treatment No Information Progress Notes * Smith HEATH PDOB:1965 (59 yo M)Acc No.[id number]:04/07/2024 Patient: Smith CARVALHO :1965 A ge:59 Y S ex:Male Address:[facility] [place], [address] * true * Date: Generated for Ritai ng/Faangelog/eTransmitting on: 0 02/25/2025 05:05 PM EDT
--- OUTSIDE RECORDS SUMMARY | 2024-04-10 15:44 | XMS_ITS ---
Author Organization The [facility] in [place] Address [address] [place] [address] Care Team Providers Care Propagator Laborer Name Role Phone Roccokathy George Primary Care Provider Reason For Referral Diagnosis 1 Occult blood positiv e stool (R19.5) Referral Organization [facility] Referring Provider First Name George Referring Provider Last Name Elan [facility] rafat Referred Provider Faustino Escobar Referred Provider Specialty General Surg whitney Referral Priority Routine REASON FOR VISIT Occ Blood Results Encounters Encounter Location Date Provider Diagnosis [facility] [address] [place] [address] 04/10/2024 George Ansari Occult blood positiv e stool R19.5 Assessments Encounter Date Diagnosis (ICD Code) Assessment Notes Treatment Notes Treatment Clinical Notes Section Notes 04/10/2024 Occult blood positive stool (ICD-10 - R19.5) Plan Of Treatment Referrals Referral Date Details 04/11/2024 04/11/2024, Faustino Escobar Progress Notes * Smith HEATH PDOB:1965 (59 yo M)Acc No.[id number]:04/10/2024 Patient: Smith CARVALHO :1965 A ge:59 Y S ex:Male Address:[facility] [address] [place], [address] Subjective: * Chief Complaints: * O cc Blood Results * Medical History: * Surgical History: * Hospitalization/Major Diagno stic Procedure: * Medications: Objective: * Vitals: * Physical Examination: Assessment: * Assessment: 1. O ccult blood positive stool - R19.5 (Primary) Plan: * Treatment: * Procedure Codes: * true * Date: Generated for Chace sanford/Shashi/Angelitting on: 0 02/25/2025 05:05 PM EDT Consultation Request Notes Referral Date Referring Provider Referred Provider Not floridalma 04/11/2024 George Ansari Michael
--- OUTSIDE RECORDS SUMMARY | 2025-02-19 09:00 | XMS_ITS | Encounter Summary ---
Author Organization [facility] Healthcare Address [address] [place] [address] Care Team Providers Care Airborne Operations Name Role Phone Zohaib Ansari MD Primary Care Provider [phone] Reason for Visit * Rehabilitation - Outpatient (Routine) - Authorized Specialty Diagnoses / Procedures Referred By Janina zhang Referred To Contact Physical Therapy Diagnoses Rotator cuff syndrome of left shoulder Procedures [place] OFFICE/OUTPATIENT [facility] 60 MINUTES Paul Otero MD [address] [facility] [address] [address] Phone: tel: fax: Vinh Cameron, PT [address] [place] [address] Phone: tel: fax: Referral ID Status Reason Start Date Expiration Date Visits Requested Visits Authorized [id number] Authorized Specialty Services Required 02/15/2025 07/03/2025 60 60 Encounter Details Date Type Department Care Team (Late st Contact Info) Description 02/19/2025 9:00 AM EDT Evaluation [facility] [address] [place] [address] Vinh Cameron, PT [address] [place] [address] Rotator cuff syndrome of left shoulder Social History Tobacco Use Types Packs/Day Years Used Date Smoking Tobacco: Never Assessed Sex and Gender Information Value Date Recorded Sex Assigned at Not on file Legal Sex Male 7:37 PM EDT Gender Identity Not on file Sexual Orientation Not on file documented as of this encounter Progress Notes * Vinh Cameron, PT - 02/19/2025 9:00 AM EDT Images from the original note were not included. Physical Therapy Physical Therapy Evaluation Visit Patient Name: Smith Heath Today's Date: 02/19/2025 Encounter Diagnoses Name Primary? Rotator cuff syndrome of left shoulder Time In: 9:00 am Time out: 10:00 am Supervised Time: 60 Min Total Time: 60 Min Evaluation Time: 20 Minutes Visit Number: 1 (60 visits - no copay and no auth) Chief Complaint: Chronic and progressive left shoulder pain, weakness, and decreased tolerance to functional activity. PRECAUTIONS: As Tolerated Subjective History: 59 yo male presents per Paul Otero MD for left non-dominant shoulder pain. Onset in Jun 2024 in which a large round bale of straw rolled into patient causing impact to his upper thoracic and posterior shoulder and pushed him into a wall. Reports chronic pain since that time and feelspain worsening and weakness becoming more functional problematic since that time. Has left shoulderX-Ray ordered but has not yet been taken. Patient is motivated to resolve pain and functional mobility deficits leading to this PT consult (02/19/25-DBO) Pain: Reports pain superior shoulder along Suprascapular fossa and at Greater/Lesser Tubercles. Painful arc beyond 140 degrees elevation and has pain with empty can, cross-over impingement, and resisted ER/Abduction. Pain is intermittent in nature and most painful with shoulder level and overhead ac tivity up to 5-6/10 intensity. Patient is having difficulty with sleeping on affected shoulder which is his normal sleeping position. Objective: Examination performed on 04/21/25-DBO The patient presents with chronic and progressive complaints of left non- dominant shoulder pain of 8+ month duration with initial injury in June 2024 described above. The patient demonstrates moderate forward head and rounded shoulder postural dysfunction with mild cervical and upper trapezius pain and moderate anterior and subacromial pain. AROM screen of the cervical spine demonstrated mildcapsular restriction with rotation 70 degrees, side-bending 30 degrees with <25% loss of cervical extension mobilization. AROM left shoulder demonstrates painful arc beyond 145 degrees flexion, 120 degrees abduction, and with IR of the right UE behind back. Gross left UE motion is WFL. Functionally is having difficulty with shoulder level and above activity and sleeping on affected right shoulder. Patient has positive Thompson-Kolby and Cross Over Impingement testing and has pain with Empty Canposition. Resistive testing of strength finds ER 4-/5, abduction 4-/5. Other motions 4+/5 to 5/5. The patient's Quick DASH scores 31.81 indicative of moderate functional impairment and is consistent with PT examination findings. 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 [employer] INTERVENTIONS PT Initial Evaluation: Low complexity including education on this condition including ergonomic/postural considerations, discussion of post-surgical protocol, and review of expected PT treatment progression throughout this episode of care (20 Min) Manual: Grade I-II shoulder mobilization and PROM, upper trapezius and general STM for promotion ofpassive tissue mobility/ROM and pain reduction; Possible inclusion of cervical manual therapy and mobilization to assist with rehabilitation of the shoulder secondary to forward head postural dysfunction and cervical/scapular muscle attachment relationship (25 Min) Therapeutic Exercise: Per Exercise Grid found in patient documents including cervical and thoracic flexibility and shoulder/scapular strength conditioning program per flowsheet (15 Min) Therapeutic Activity: Exercises to improve dynamic activities, functional tasks, functional mobility to return to prior activity level (PRN) Neuromuscular Re-education: Neuromuscular reeducation including muscle facilitation, ergonomic and postural training, cervical/scapular/core strengthening progression per protocol (PRN) Modalities: Electrical Stimulation/Ice to the affected shoulder seated post conclusion of treatmentIFC High/Low Sweep for inflammation and pain control (PRN); UltraSound-(PRN); Mechanical cervical traction for decompression (PRN) Goals: Short Term Goals: To be met by 04/02/25 The patient to demonstrate 50% reduction in pain to at worst 3/10 intensity in 2-4 weeks and by >75% to intermittent 0-2/10 intensity in 4-8 weeks The patient to be knowledgeable in postural correction program to reduce pain, promote tissue healing, and prevent postural related complications in 2 weeks The patient to demonstrate AROM of flexion 140 degrees, abduction 100 degrees, ER reach to C6, and IR reach to L3 The patient to resume all previously performed home activity including normal ADL, intermittent sleep on affected side, full resumption of household management activity by conclusion of PT. The patient to score <10% residual functional deficit via Quick Dash f/u difficulty questionnaire, have long-term independent prophylactic management including participation in daily flexibility and RTC strengthening program expected to be performed for up to 3 additional month post conclusion of PT Rehab Potential: Good PT Assessment: The patient has participated in 1 outpatient PT sessions since start of care on 02/19/25 for left non-dominant shoulder rotator cuff syndrome per referral of Paul Otero MD. Patient is agreeablewith PT POC and is motivated to participate. Good initial response to PT intervention and successful implementation of HEP. Should patient fail to make progress in the initial 2-3 sessions, additional diagnostics such as X-Ray/MRI and orthopedic consult should be considered. Plan: Recommend outpatient PT 1-2 times/week for up to 8-12 weeks per above PT POC pending patient progress and medical necessity standards (02/19/25-DBO) I hereby deem this POC medically necessary. Please sign below and fax back to the number below. Physician Signature: Date: Cosigned by Paul Otero MD at 02/20/2025 10:15 AM EDT documented in this encounter Plan of Treatment Upcoming Encounters Date Type Department Care Team (Late st Contact Info) Description 02/27/2025 9:15 AM EDT Treatment [facility] [address] [place] [address] Vinh Cameron, PT [address] [facility] [place] [address] 2025 9:15 AM EDT Treatment [facility] [address] [place] [address] Vinh Cameron, PT [address] [place] [address] documented as of this encounter Visit Diagnoses Diagnosis Rotator cuff syndrome of left shoulder Rotator cuff syndrome of left shoulder- Primary documented in this encounter Care Teams Airborne Operations Relationship Specialty Start Date End Date Zohaib Ansari MD [address] [place] [address] PCP - General Family Medicine 02/19/25 documented as of this encounter
--- OUTSIDE RECORDS SUMMARY | 2025-02-25 17:05 | XMS_ITS | Clinical Summary ---
Author Organization [facility] Address [address] [facility] [place] [address] Care Team Providers Care Piercing Mill Operator Name Role Phone Zohaib Ansari MD Primary Care Provider [phone] Medications dexAMETHasone (Decadron) 2 MG tabletIndication s:Chronic bilateral low back pain with bilateral sciatica 2mg 3 pills po X3 days,2 pills po daily X3 days , then 1 pill po daily X3 days then stop 9 days 18 pills 18 tablet 1 12/15/2023 Active Encounters Date Type Department Care Team Description 02/19/2025 9:00 AM EDT Evaluation [facility] [address] [place] [address] Vinh Cameron, PT Rotator cuff syndrome of left shoulder 02/19/2025 Bamboo flowsheet [facility] [address] [place] [address] Vinh Cameron, PT 02/19/2025 Travel 02/15/2025 Telephone [facility] [address] [place] [address] Nicole Bernardo, RT. R from Last 3 Months Social History Tobacco Use Types Packs/Day Years Used Date Smoking Tobacco: Never Assessed Sex and Gender Information Value Date Recorded Sex Assigned at Not on file Legal Sex Male 7:37 PM EDT Gender Identity Not on file Sexual Orientation Not on file Last Filed Vital Signs Vital Sign Reading Time Taken Comments Blood Pressure 123/85 08/11/2017 12:00 PM EST Pulse - - Temperature - - Respiratory Rate - - Oxygen Saturation - - Inhaled Oxygen Concentration - - Weight 111 kg (245 lb) 04/21/2020 12:00 PM EDT Height 188 cm (6' 2 ) 04/21/2020 12:00 PM EDT Body Mass Index 31.46 04/21/2020 12:00 PM EDT Plan of Treatment Upcoming Encounters Date Type Department Care Team (Late st Contact Info) Description 02/27/2025 9:15 AM EDT Treatment [facility] [address] [place] [address] Vinh Cameron, PT [address] [place] [address] 2025 9:15 AM EDT [facility] [address] [place] [address] Vinh Cameron, PT [address] [place] [address] Health Maintenance Due Date Last Done Comments CT Colonography 1966 Colonoscopy 1966 Colorectal Cancer Screening 1966 FIT-DNA 1966 FIT 1966 FOBT 1966 Sigmoidoscopy 1966 Influenza Vaccine (#1) 2025 05/30/2019, 2015 Insurance [employer] Care Teams Piercing Mill Operator Relationship Specialty Start Date End Date Zohaib Ansari MD [address] [place] [address] PCP - General Family Medicine 02/19/25
--- OUTSIDE RECORDS SUMMARY | 2025-02-25 17:05 | XMS_ITS | Encounter Summary ---
Author Organization [facility] Address [address] [place] [address] Care Team Providers Care Cargo Service Agent Name Role Phone Zhoaib Ansari MD Primary Care Provider [phone] Encounter Details Date Type Department Care Team (Late Contact Info) Description 02/19/2025 Bamboo flowsheet [facility] [place] [facility] [address] [place] [address] Vinh Cameron, PT [address] [place] [phone] Social History Tobacco Use Types Packs/Day Years Used Date Smoking Tobacco: Never Assessed Sex and Gender Information Value Date Recorded Sex Assigned at Not on file Legal Sex Male 7:37 PM EDT Gender Identity Not on file Sexual Orientation Not on file documented as of this encounter Plan of Treatment Upcoming Encounters Date Type Department Care Team (Late st Contact Info) Description 02/27/2025 9:15 AM EDT Treatment [facility] [place] [facility] [address] [facility] [place] [address] Vinh Cameron, PT [address] [place] [address] 2025 9:15 AM EDT Treatment [facility] [place] [address] [place] [address] Vinh Cameron, PT [address] [place] [address] documented as of this encounter Visit Diagnoses Not on filedocumented in this encounter Care Teams Cargo Service Agent Relationship Specialty Start Date End Date Zohaib Ansari MD [address] [place] [address] PCP - General Family Medicine 02/19/25 documented as of this encounter
--- OUTSIDE RECORDS SUMMARY | 2025-02-25 17:05 | XMS_ITS | Encounter Summary ---
Author Organization [facility] Address [address] [place] [address] Care Team Providers Care Product Applications Engineer Name Role Phone Zohaib Ansari MD Primary Care Provider [phone] Encounter Details Date Type Department Care Team (Latest Contact Info) Description 02/19/2025 Travel Social History Tobacco Use Types Packs/Day Years [...] Info) Description 02/27/2025 9:15 AM EDT Treatment [facility] [address] [place] [address] Vinh Cameron, PT [address] [place] [address] 2025 9:15 AM EDT Treatment [facility] [place] [facility] [address] [place] [address] Vinh Cameron, PT [address] [place] [address] documented as of this encounter Visit Diagnoses Not on filedocumented in this encounter Care Teams Product Applications Engineer Relationship Specialty Start Date End Date Zohaib Ansari MD [address] [place] [address] PCP - General Family Medicine 02/19/25 documented as of this encounter
--- OUTSIDE RECORDS SUMMARY | 2025-02-25 17:05 | XMS_ITS | Encounter Summary ---
Author Organization [facility] Address [address] [facility] [place] [address] Care Team Providers Care Acoustical Tile Drill Press Operator Name Role Phone Unavailable Primary Care Provider Unavailabl e Reason for Referral * Rehabilitation - Outpatient (Routine) - Authorized Specialty Diagnoses / Procedures Referred By Janina zhang Referred To Contact Physical Therapy Diagnoses Rotator cuff syndrome of left shoulder Procedures [place] OFFICE/OUTPATIENT [facility] 60 MINUTES Donovan Bernstein MD [address] [facility] [address] [place] [address] [place] [address] Phone: tel: fax: Vinh Cameron, PT [address] [place] [address] Phone: tel: fax: Referral ID Status Reason Start Date Expiration Date Visits Requested Visits Authorized [id number] Authorized Specialty Services Required 02/15/2025 07/03/2025 60 60 Encounter Details Date Type Department Care Team (Late st Contact Info) Description 02/15/2025 Telephone [facility] [address] [place] [address] Nicole Bernardo, RT. R Social History Tobacco Use Types Packs/Day Years Used Date Smoking Tobacco: Never Assessed Sex and Gender Information Value Date Recorded Sex Assigned at Not on file Legal Sex Male 7:37 PM EDT Gender Identity Not on file Sexual Orientation Not on file documented as of this encounter Miscellaneous Notes * Telephone Encounter - Donovan Bernstein MD - 02/15/2025 8:04 AM EDT Order for PT and x-rays put in * Addendum Note - Donovan Bernstein MD - 02/15/2025 8:03 AM EDTAddended by: DONOVAN BERNSTEIN on: 02/15/2025 08:03 AM Modules accepted: Orders * Telephone Encounter - RT. Domitila Parker - 02/15/2025 2:26 AM EDT Per discussion with Dr. Bernstein please place left shoulder x-rays. ( can go to [facility]), also he will do PT at [facility] in [place], with Pipe Cameron. documented in this encounter Plan of Treatment Upcoming Encounters Date Type Department Care Team (Late st Contact Info) Description 02/27/2025 9:15 AM EDT Treatment [facility] Physical Therapy [address] [place] [address] Vinh Cameron, PT [address] [place] [address] 2025 9:15 AM EDT Treatment [facility] Physical Therapy [address] [place] [address] Vinh Cameron, PT [address] [place] [address] Scheduled Orders Name Type Priority Associated Diagnoses Orde r Schedule XR shoulder 2+ views left Imaging Routine Rotator cuff syndrome of left shoulder Expected: 02/15/2025, Expires: 02/15/2026 Scheduled Referrals Name Type Priority Associated Diagnoses Order Schedule Ambulatory referral to Physical Therapy Outpatient Referral Routine Rotator cuff syndrome of left shoulder Expected: 02/15/2025 (Approximate), Expires: 08/18/2025 documented as of this encounter Visit Diagnoses Diagnosis Rotator cuff syndrome of left shoulder- Primary Rotator cuff syndrome of left shoulder- Primary documented in this encounter
--- OUTSIDE RECORDS SUMMARY | 2025-02-25 17:05 | XMS_ITS | Encounter Summary ---
Author Organization [facility] Address [address] [place] [address] Care Team Providers Care Shot Blaster Name Role Phone Unavailable Primary Care Provider Unavailabl e Source Comments In the event this information is protected by the Federal Confidentiality of Alcohol and Drug AbusePatient Records regulations: The Federal rules restrict any use of the information to criminally investigate or prosecute any alcohol or drug abuse patient.[facility] Encounter Details Date Type Department Care Team (Late st Contact Info) Description 12/17/2024 Lab Requisition [facility] [address] [place] [address] Theron Cooney, ELVER [address] [facility] [place] [phone] Person encountering health services to consult on behalf of another person Social History Tobacco Use Types Packs/Day Years Used Date Smoking Tobacco: Never Assessed Sex and Gender Information Value Date Recorded Sex Assigned at Not on file Legal Sex Male 7:49 PM EDT Gender Identity Not on file Sexual Orientation Not on file documented as of this encounter Plan of Treatment Not on file documented as of this encounter Procedures Procedure Name Priority Date/Time Associated Diagnosis Comments SURGICAL PATHOLOGY Routine 12/13/2024 12 :10 PM EDT Person encountering health services to consult on behalf of another person documented in this encounter Results * SURGICAL PATHOLOGY (12/13/2024 12:10 PM EDT) Case Report Surgical Pathology Report Case: [id number] Authorizing Provider: Theron Cooney DDS Collected: 12/13/2024 12:10 PM Ordering Location: [facility] Received: 12/17/2024 07:51 PM [facility] Pathologist: Romeo Hastings MD Specimen: Gingiva, Biopsy, GINGIVA 8&9 12/25/2024 4:18 PM EDT [facility] FINAL DIAGNOSIS Gingiva between teeth #8 and #9, biopsy: - High-grade (severe) keratinizing dysplasia. - No invasive carcinoma identified. - See comment. ICD-10: K13.21 12/25/2024 4:18 PM EDT [facility] at [address] Owen Hines was consulted and he agrees with the diagnosis. Multiple deeper H&E-stained tissue sections were examined. A GMS stain is negative for fungal organisms. The GMS positive control stained appropriately. An immunohistochemical study for T. pallidum is negative. 12/25/2024 4:18 PM EDT [facility] Microscopic Description The sections show a fragment of squamous mucosa notable for the presence of differentiated keratinizing dysplasia. This is characterized by compact hyperkeratosis, hypergranulosis, architectural disarray and near full-thickness cytologic atypia. The lamina propria consists of densely collagenous fibrovascular tissue with moderate chronic inflammation. There is no evidence of invasive carcinoma. 12/25/2024 4:18 PM EDT [facility] Gross Description A. Gingiva, Biopsy Labeled: Gingiva 8 and 9 Received: Formalin 1 Number of tissue fragments: 1 Specimen dimensions: 0.8 x 0.2 x 0.2 cm Mucosa: Present; camacho-pink and smooth Cassette Code: Totally submitted trisected. SEP/MLG 12/18/24 9:01 AM Gross examination performed at [facility], [facility] [place] [address] 12/25/2024 4:18 PM EDT [facility] Clinical History This lesion was biopsied from the gingiva between teeth #8 and #9. It is pink/red and measures 1.5 x 1.0 cm. Clinical Impression: Squamous cell carcinoma 12/25/2024 4:18 PM EDT [facility] Performing Lab Diagnostic interpretation performed at: [facility], [address] [place] [address], [place] [address] CLIA# [id number] Wood Scaler: Joseph Trejo MD 12/25/2024 4:18 PM EDT [facility] Disclaimer Laboratory Developed Test (LDT) Disclaimer: Performance characteristics of immunohistochemical, immunofluorescent, and chromogenic in-situ hybridization tests have been determined by the performing laboratory within [facility]'s [facility] Pathology and Laboratory Medicine Department ([facility], [facility], [facility], [facility], [place], [facility], [facility], or [facility]) in a manner consistent with CLIA requirements. One or more of these tests may not have been cleared or approved by the FDA. [facility] is regulated under CLIA as qualified to perform high-complexity testing. These tests are used for clinical purposes. These should not be regarded as investigational or for research. Positive and negative controls stain appropriately. 12/25/2024 4:18 PM EDT [facility] Tissue GINGIVA BIOPSY SPECIMEN / Unknown 12/13/2024 12:10 PM EDT 12/17/2024 7:51 PM EDT us Theron Cooney DDS SURGICAL PATHOLOGY Final Res ult [facility] [address] [place] [address], [place] documented in this encounter Visit Diagnoses Diagnosis Person encountering health services to consult on behalf of another person Other person consulting on behalf of another person documented in this encounter
--- OUTSIDE RECORDS SUMMARY | 2025-02-25 17:06 | XMS_ITS | Clinical Summary ---
Author Organization [facility] Address [address] [place] [address] Care Team Providers Care Brand Marketing Manager Name Role Phone Unavailable Primary Care Provider Unavailabl e Encounters Date Type Department Care Team Description 12/17/2024 Lab Requisition [facility] [address] [place], [place] [id number] Theron Cooney DDS Person encountering health services to consult on behalf of another person from Last 3 Months Social History Tobacco Use Types Packs/Day Years Used Date Smoking Tobacco: Never Assessed Sex and Gender Information Value Date Recorded Sex Assigned at Not on file Legal Sex Male 7:49 PM EDT Gender Identity Not on file Sexual Orientation Not on file Plan of Treatment Not on file Procedures Procedure Name Priority Date/Time Associated Diagnosis Comments SURGICAL PATHOLOGY Routine 12/13/2024 12 :10 PM EDT Person encountering health services to consult on behalf of another person from Last 3 Months Results * SURGICAL PATHOLOGY (12/13/2024 12:10 PM EDT) Case Report Surgical Pathology Report Case: [id number] Authorizing Provider: Theron Cooney DDS Collected: 12/13/2024 12:10 PM Ordering Location: [facility] Received: 12/17/2024 07:51 PM [facility] Pathologist: Romeo Hastings MD Specimen: Gingiva, Biopsy, GINGIVA 8&9 12/25/2024 4:18 PM EDT [facility] FINAL DIAGNOSIS Gingiva between teeth #8 and #9, biopsy: - High-grade (severe) keratinizing dysplasia. - No invasive carcinoma identified. - See comment. ICD-10: K13.21 12/25/2024 4:18 PM EDT [facility] at [address] Owen Hines was consulted and he agrees with the diagnosis. Multiple deeper H&E-stained tissue sections were examined. A GMS stain is negative for fungal organisms. The GMS positive control stained appropriately. An immunohistochemical study for T. pallidum is negative. 12/25/2024 4:18 PM EDT [facility] Microscopic Description The sections show a fragment of squamous mucosa notable for the presence of differentiated keratinizing dysplasia. This is characterized by compact hyperkeratosis, hypergranulosis, architectural disarray and near full-thickness cytologic atypia. The lamina propria consists of densely collagenous fibrovascular tissue with moderate chronic inflammation. There is no evidence of invasive carcinoma. 12/25/2024 4:18 PM EDT [facility] Gross Description A. Gingiva, Biopsy Labeled: Gingiva 8 and 9 Received: Formalin 1 Number of tissue fragments: 1 Specimen dimensions: 0.8 x 0.2 x 0.2 cm Mucosa: Present; camacho-pink and smooth Cassette Code: Totally submitted trisected. SEP/MLG 12/18/24 9:01 AM Gross examination performed at [facility], [address] [place] [address] 12/25/2024 4:18 PM EDT [facility] Clinical History This lesion was biopsied from the gingiva between teeth #8 and #9. It is pink/red and measures 1.5 x 1.0 cm. Clinical Impression: Squamous cell carcinoma 12/25/2024 4:18 PM EDT [facility] Performing Lab Diagnostic interpretation performed at: [facility], [address] [place] [address], [place] [address] CLIA# [id number] Coffee Sommelier: Joseph Trejo MD 12/25/2024 4:18 PM EDT [facility] Disclaimer Laboratory Developed Test (LDT) Disclaimer: Performance characteristics of immunohistochemical, immunofluorescent, and chromogenic in-situ hybridization tests have been determined by the performing laboratory within [facility]'s [place] [facility][Note 3]satish Pathology and Laboratory Medicine Department ([facility], [facility], [facility], [facility], [facility], [facility], or [facility]) in a manner consistent with CLIA requirements. One or more of these tests may not have been cleared or approved by the FDA. [facility] is regulated under CLIA as qualified to perform high-complexity testing. These tests are used for clinical purposes. These should not be regarded as investigational or for research. Positive and negative controls stain appropriately. 12/25/2024 4:18 PM EDT [facility] Tissue GINGIVA BIOPSY SPECIMEN / Unknown 12/13/2024 12:10 PM EDT 12/17/2024 7:51 PM EDT us Theron Daniel Cooney DDS SURGICAL PATHOLOGY Final Res ult [facility] [address] [facility] [address] [place] [address], from Last 3 Months [facility]
--- OUTSIDE RECORDS SUMMARY | 2025-02-25 17:06 | XMS_ITS | CCD ---
Author Organization [facility] Care Team Providers Care Home Health Aide Name Role Phone JASIEL WILKERSON Admitting Unavailable JASIEL WILKERSON Attending Unavailable PANDA ANSARI Primary Care Unavailable ND Procedure Practitioner Unavailab le EBRAHEIM, MIKE Admitting Unavailable EBRAHEIM, MIKE Primary Care Unavailable EBRAHEIM MIKE Attending Unavailable EBRAHEIM, MIKE Referring Unavailable EBRAHEIM MIKE Surgeon Unavailable VALERIE SAWANT Surgeon Unavailable ND Procedure Practitioner Unavailab Panda Marvin Primary Care Physician [phone] Panda Ansari Referring Unavailable Faustino TORRES Attending Unavailable Faustino TORRES Attending Unavailable Unavailable Primary Care Provider UnavailPanda Marshall MD Primary Care Provider SHAYY CAMERON Attending Unavailable DONOVAN OTERO Referring Unavailable Allergies Allergy Classification Reported Allergen(s) Allergy Type Date of Onset Reaction(s) Facility (3 sources) Acetaminophen / oxyCODONE; Translations: [PERCOCET] Drug Allergy 5 [facility] Repository (1 source) Acetaminophen / oxyCODONE; Translations: [acetaminophen-ox ycodone] Drug Allergy Nausea and vomiting (disorder) [facility] (1 source) No Known Medication Allergies; Translations: [No Known Medication Allergies] Propensity to adverse reactions (disorder) [facility] Repository Medications Current Medications Medication Drug Class(es) Dates Sig (Normalized) Sig (Original) aspirin 81 mg delayed release oral tablet (1 source) Platelet Aggregation Inhibitor, Nonsteroidal Anti-inflammatory Drug Start: 05-09-2024 take 1 tablet by mouth once daily aspirin 81 mg Oral EC Tab 81 mg = 1 tab(s), Oral, Daily, Refills(s) 0 Start Date: 05/09/24 Status: Ordered dexamethasone 2 mg oral tablet (3 sources) Corticosteroid Start: 12-15-2023 dexAMETHasone (Decadron) 2 MG tablet Indications: Chronic bilateral low back pain with bilateral sciatica 2mg 3 pills po X3 days,2 pills po daily X3 days , then 1 pill po daily X3 days then stop 9 days 18 pills 18 tablet 1 12/15/2023 Active Fish Oils (1 source) Start: 05-09-2024 take 1000 mg by mouth once daily [place]-3 Fish Oil 1,000 mg, Oral, Daily, Refills(s) [...] in situ of lip 04-16-2024 Chronic Other connective tissue disease (1 source) Spasm of cervical paraspinous muscle; Translations: [Other muscle spasm] 06-25-2024 Episodic Other connective tissue disease (1 source) Left rotator cuff syndrome; Translations: [Unspecified rotator cuff tear or rupture of left shoulder, not specified as traumatic] 02-19-2025 Episodic Other gastrointestinal disorders (1 source) Abnormal feces; Translations: [Other fecal abnormalities] Onset: 05-09-2024 Episodic Other gastrointestinal disorders (1 source) Occult blood in stools 05-09-2024 Episodic Other injuries and conditions due to external causes (4 sources) Other specified injury of left quadriceps muscle, fascia and tendon, subsequent encounter; Translations: [OTH INJ LT QUAD MUSC FASC TEND SUB] Onset: 07-21-2018 Episodic Other non-traumatic joint disorders (1 source) Pain in left shoulder; Translations: [Pain in joint, shoulder region] 06-25-2024 Episodic Other nutritional; endocrine; and metabolic disorders (1 source) Body mass index 30+ - obesity 05-09-2024 Chronic Other nutritional; endocrine; and metabolic disorders (1 source) Obesity caused by energy imbalance 04-16-2024 Chronic Results Test Name Value Interpretation Reference Range Facil ity Reminderson 06-07-2024 Reminders Reminders From: Maria Luisa De León LPN To: GSN - Clinical; Sent: 06/07/2024 12:54:28 EST Show up: 05/07/2034 07:00:00 EDT Subject: colonoscopy recall Due Date/Time: 06/06/2034 07:00:00 EST Reminder/Recall Patient due for screening colonoscopy 06/06/2034. Normal [facility] Ambulatory Visit Summaryon 1 07-09-2023 Ambulatory Visit Summary Ambulatory Visit Summary SMITH LERYO :1965 Visit Date:05/09/2024 Ambulatory Visit Instructions Your Diagnosis Positive fecal occult blood test Your Care Team Attending Physician - BRIAN BERNARDO, Faustino Ramesh Primary Care Physician - Elan BERNARDO, Panda Referring Physician - Panda Ansari MD This Is Your Medications List Contact prescribing physician if questions or concerns aspirin (aspirin 81 mg Oral EC Tab) multivitamin (Multi Vitamins oral tablet) omega-3 polyunsaturated fatty acids ([place]-3 Fish Oil) Procedures Performed Arthroplasty of right [...] or concerns Unchanged omega-3 polyunsaturated fatty acids ([place]-3 Fish Oil) 1,000 Milligram By Mouth Every [...] for choosing us for your care. Normal [facility] Vital Signs Date Time Vital Sign Value Performing Clinician Aurelia harding 05-09-2024 14:23-0500 Blood Pressure Location Faustino TORRES [facility] 05-09-2024 14:23-0500 Diastolic blood pressure 96 mm[Hg] Faustino NILL [facility] 05-09-2024 14:23-0500 Heart rate 72 /min Faustino NILL [facility] 05-09-2024 14:23-0500 Respiratory rate 16 /min Faustino NILL [facility] 05-09-2024 14:23-0500 Systolic blood pressure 136 mm[Hg] Faustino NILL [facility] Encounters Encounter Date Encounter Type Care Provider Facility Start: 02-19-2025 End: 02-19-2025 Bamboo flowsheet Shayy Cameron PT Work Phone: [facility] Start: 02-19-2025 End: 02-19-2025 Bamboo flowsheet Shayy Cameron PT Work Phone: [facility] Start: 02-19-2025 End: 02-19-2025 ambulatory Shayy Cameron PT Work Phone: [facility] Comment on above: Rotator cuff syndrom e of left shoulder Start: 06-25-2024 End: 06-25-2024 Zoë Otero MD Work Phone: [facility] Comment on above: Acute pain of left s hozoraida (Primary Dx); Cervical paraspinal muscle spasm Start: 06-06-2024 End: 06-06-2024 ambulatory Faustino R NILL Facility::[phone] Start: 05-09-2024 End: 05-09-2024 ambulatory Panda Roccoy Facility: [facility] Start: 05-09-2024 End: 05-09-2024 Patient encounter procedure Faustino Domitila TILLMANL [facility] Start: 05-07-2024 ambulatory Panda Hoy Facility:[facility] Start: 04-12-2024 ambulatory Panda Hoy Facility:[facility] Start: 07-21-2018 End: 10-13-2018 Patient encounter procedure JASIEL WILKERSON Facility:[facility] Start: 06-02-2018 End: 06-03-2018 Patient encounter procedure ND Facility:[facility] Procedures Date Procedure Procedure Detail Performing Clinician Start: 06-02-2018 ANESTH UPPER LEG SURGERY VALERIE SAWANT Start: 06-02-2018 REPAIR OF THIGH MUSCLE MIKE EBRAHEIM Left quadriceps injury Shadi rocha BRIAN Repair of joint of r ight hip Faustino NILL Repair of right ingu inal hernia Faustino NILL Plan of Treatment Date Care Activity Detail Author Start: 2025 End: 2025 ambulatory 2025 9:15 AM EDT Treatment [facility] [address] [place] [address] Shayy Cameron, PT [address] [place] [address] [facility] Start: 03-04-2025 Influenza vaccination Influenza Vacc ine (#1) [facility] Start: 02-27-2025 End: 02-27-2025 ambulatory 02/27/2025 9:15 AM EDT Treatment [facility] [address] [place] [address] Shayy Cameron, PT [address] [place] [address] [facility] Start: 02-19-2025 End: 02-19-2025 ambulatory 02/19/2025 9:00 AM EDT Evaluation [facility] [address] [place] [address] Shayy Cameron, PT [address] [place] [address] Rotator cuff syndrome of left shoulder [facility] Comment on above: Rotator cuff syndrom e of left shoulder Start: 06-25-2024 End: 06-25-2025 XR Cervical spine 4 or 5 Views XR cervical spine complete 4 to 5 views Imaging Routine Cervical paraspinal muscle spasm Expected: 06/25/2024, Expires: 06/25/2025 [facility] Comment on above: Expected: 06/25/2024 , Expires: 06/25/2025 Start: 06-25-2024 End: 06-25-2025 XR Shoulder - left 2 Views XR shoulder 2+ views left Imaging Routine Acute pain of left shoulder Expected: 06/25/2024, Expires: 06/25/2025 [facility] Healthcare Work Phone: Comment on above: Expected: 06/25/2024 , Expires: 06/25/2025 Start: 1965 Screening for malign ant neoplasm of colon [facility] Immunizations Immunization Date Immunization Notes Care Provider Fa cility 07-13-2021 SARS-CoV-2 (COVID-19 ) mRNA-1273 vaccine Faustino TILLMANJacque [facility] Comment on above: Result Comment: 2023: TPV50 11-14-2020 SARS-CoV-2 (COVID-19 ) Ad26 vaccine, recombinant Faustino TILLMANJacque [facility] Comment on above: Result Comment: 2023: --[employer] POPULATION/OCCUPATION-- 05-30-2019 influenza virus vaccine, unspecified formulation Shayy Cameron PT Work Phone: [facility] Healthcare Payers Date Payer Category Payer Private Health Insurance [employer] [id number] 2022 Unknown [id number] 1965 Unknown [id number] 1965 Unknown [id number] 1966 Unknown [id number] 1966 Unknown [id number] 1966 Unknown [id number] 1959 Unknown [id number] Social History Date Type Detail Facility Start: 05-09-2024 Tobacco smoking status Never smoked tobacco (finding) [facility] Tobacco smoking status Never [facility] Sex Assigned At Male [facility] Tobacco smoking status [email or web address] Tobacco smoking consumption unknown [facility] Start: 1965 Sex assigned at Not on file N [facility] Healthcare Functional Status Date Assessment Result Facility 05-09-2024 Functional Status N/A [facility] Clinical Note 05-09-2024 Note Date & Type Note Facility 05-09-2024 Note General Surgery Offi ce/Clinic Note Chief Complaint consultation for positive occult stool HPI Staff 59 year old male presents on consultation from Dr. Ansari for positive occult stool. Denies abdominal or [...] Vitamins oral tablet, 1 tab(s), Oral, Daily [place]-3 Fish Oil, 1000 mg, Oral, Daily Allergies Percocet (Nausea and vomiting) Social History Alcohol Never., 05/06/2024 Substance Abuse Never., 05/06/2024 Tobacco Never (less than 100 in lifetime) Tobacco Use:. Never Smokeless Tobacco Use:., 05/09/2024 Family History Heart disease: Father. Immunizations Vaccine Date Status Comments SARS-CoV-2 (COVID-19) mRNA-1273 vaccine 07/13/2021 Recorded 2024-04-16: TPV50 SARS-CoV-2 (COVID-19) Ad26 vaccine 11/14/2020 Recorded 2024-04-16: --[employer] POPULATION/OCCUPATION-- [facility] Comment on above: Result Comment: Elec tronically Signed By: BRIAN BERNARDO, Faustino Gray\Date and Time Signed: 05/09/24 14:44 EST Evaluation + Plan note Note Date & Type Note Facility Evaluation + Plan note No data available for this section [facility] [place] Evaluation note Note Date & Type Note Facility Evaluation note Diagnosis Acute pain of left shoulder- Primary Cervical paraspinal muscle spasm Spasm of muscle documented in this encounter [facility] Healthcare Evaluation note Note Date & Type Note Facility Evaluation note Diagnosis Rotator cuff syndrome of left shoulder documented in this encounter [facility] Healthcare Hospital Discharge instructions Note Date & Type Note Facility Hospital Discharge instructions No data available for this section [facility] Progress note Note Date & Type Note Facility Progress note No data available for this section [facility] [place] Reason for visit Narrative Rehabilitation - Outpatient (Routine) - Authorized Note Date & Type Note Facility Reason for visit Narrative Specialty Diagnoses / Procedures Referred By Contac t Referred To Contact Physical Therapy Diagnoses Rotator cuff syndrome of left shoulder Procedures ND OFFICE/OUTPATIENT NEW HIGH MDM 60 MINUTES Donovan Otero MD [address] [place] [address] [place] [address] Phone: tel: fax: Shayy Cameron, PT [address] [place] [address] Phone: tel: fax: Referral ID Status Reason Start Date Expiration Date Visits Requested Visits Authorized [id number] Authorized Specialty Services Required 02/15/2025 08/14/2025 60 60 [facility] Summary Purpose Family History No Family History Records FoundNo Family History Records Found No data available for this section No Family History Records FoundNo Family History Records Found Advance Directives No Advanced Directives Records FoundNo Advanced Directives Records FoundNo Advanced Directives Records FoundNo Advanced Directives Records Found Additional Source Comments (unrecognized sect ion and content) No Status Records FoundNo Status Records FoundNo Status Records FoundNo Status Records Found INFORMATION SOURCE (unrecogn ized section and content) DATE CREATED AUTHOR 10/14/2018 [facility] DATE CREATED AUTHOR AUTHOR'S ORGANIZ ATION 06/04/2020 [facility] DATE CREATED AUTHOR AUTHOR'S ORGANIZ ATION 06/14/2024 [facility] DATE CREATED AUTHOR AUTHOR'S ORGANIZ ATION 02/20/2025 [facility] EPIC Patient Care team informatio n (unrecognized section and content) Home Health Aide Relationship Specialty Start Date End Date Panda Ansari MD [address] [place] [address] PCP - General Family Medicine 02/19/25 FOR RECORDS PERTAINING TO PATIENTS WHO ARE [...] BE BASED ON THE PRIMARY CLINICAL RECORDS. [facility]. provides no warranty or guarantee of the accuracy or completeness of information in this document.
--- NOTE | 2025-02-25 17:15 | XR_ITS ---
The [place] [id number] Patient Name: RANDY LEROY MRN: [id number] date: 1965 Sex: M Assigned Patient Location: [facility] Current Patient Location: Accession/Order Number: [id number] Exam Date: 02/25/2025 17:07 Report Date: 02/26/2025 09:30 At the request of: DONOVAN BERNSTEIN Procedure: XR shoulder LT min 2V LEFT SHOULDER - 3 views CLINICAL HISTORY: Rotator cuff syndrome of left shoulder, M75.102 COMPARISON: None AP, Y and Grashey views were obtained. There is no acute fracture or dislocation. There is mild superior subluxation of the humeral head and narrowing of the acromiohumeral interval which could indicate rotator cuff disease. There is hypertrophy at the acromioclavicular and to a lesser extent at the inferior glenohumeral joint. Subchondral cystic change and sclerosis are noted at the greater tuberosity. Subtle soft tissue calcification is visualized adjacent to the greater tuberosity , likely within the rotator cuff. There are no other significant soft tissue abnormalities. XR/XR shoulder LT min 2V IMPRESSION: DEGENERATIVE CHANGES AND SUSPECTED ROTATOR CUFF DISEASE Impression dictated by: Pilar Singh M.D. 02/26/2025 9:30 AM Dictation Location: [place] [address] Electronically authenticated by: [id number] Y Date: 02/26/2025 09:30
== END 2025-02-25 17:02 | disposition home or self-care (01) ==
PROVIDERS: PCP Family Medicine; Visit Provider Psychiatry & Neurology Neurology
DX: M75.102 Unspecified rotator cuff tear or rupture of left shoulder, not specified as traumatic (principal)
CPT/HCPCS: 73030

== ENCOUNTER 2025-04-30 14:29 | Outpatient (OUT) | payer OTHER, SELFPAY ==
--- OUTSIDE RECORDS SUMMARY | 2025-04-30 14:31 | XMS_ITS | Clinical Summary ---
Author Organization [facility] Healthcare Address [address] [place] [address] Care Team Providers Care Tape Recorder Mechanic Name Role Phone Zohaib Ansari MD Primary Care Provider [phone] Medications MedicationSigDispense QuantityRefillsLast FilledStart DateEnd DateStatus dexAMETHasone (Decadron) 2 MG tablet Indications:Chronic bilateral low back pain with bilateral rqxejlie9ix 3 pills po X3 days,2 pills po daily X3 days , then 1 pill po daily X3 days then stop 9 days 18 pills 18 tablet ctive gabapentin (Neurontin) 100 MG capsule Indications:Rotator cuff syndrome of left shoulder,Trigeminal neuralgiaTake 1 capsule (100 mg) by mouth in the morning and 1 capsule (100 mg) in the evening and 1 capsule(100 mg) before bedtime. 30 capsule ctive gabapentin (Neurontin) 100 MG capsule Indications:Rotator cuff syndrome of left shoulder,Trigeminal neuralgiaTake 1 capsule (100 mg) by mouth in the morning and 1 capsule (100 mg) in the evening and 1 capsule(100 mg) before bedtime. 30 capsule Discontinued(Reorder) Encounters DateTypeDepartmentCare HwhjNwldczfubrf38/11/2025Refill [facility] [address] [place] [address] Donovan Bernstein MD Rotator cuff syndrome of left shoulder; Trigeminal zizrzqodl85/06/2025Telephone [facility] [address] [place] [address] Nicole Bernardo, RT. R 02/27/2025 9:15 AM EDTTreatment [facility] [address] [place] [address] Vinh Cameron, PT Rotator cuff syndrome of left shoulder (Primary Dx)02/27/2025amboo flowsheet [facility] [address] [place] [address] Vinh Cameron, PT 02/27/20259860Rdhixw19/26/2025Clinisync Result Encounter [facility] External Department Unsolicited Donovan Bernstein MD 02/19/2025 9:00 AM EDTEvaluation [facility] [address] [place] [address] Vinh Cameron, PT Rotator cuff syndrome of left /19/2025amboo flowsheet [facility] [address] [place] [address] Vinh Cameron, PT 02/19/20257816Sgotnq02/15/2025Telephone [facility] [address] [place] [address] Nicole Bernardo, RT. R from Last 3 Months Social History Tobacco UseTypesPacks/DayYears UsedDateSmoking Tobacco: Never AssessedSex and Gender InformationValueDate RecordedSex Assigned at BirthNot on fileLegal Sex Male09/15/2022 7:37 PM EDTGender IdentityNot on fileSexual OrientationNot on file Last Filed Vital Signs Vital SignReadingTime TakenCommentsBlood Hrpfbghs937/8502 12:00 PM EST Pulse--Temperature--Respiratory Rate--Oxygen Saturation--Inhaled Oxygen Concentration--Fxcqni709 kg (245 lb)04/21/2020 12:00 PM RZBKvgwim827 cm (6' 2 ) 04/21/2020 12:00 PM EDTBody Mass Index31.4604/21/2020 12:00 PM EDT Plan of Treatment Health MaintenanceDue DateLast DoneCommentsCT Vqagfpuqqiov1966Colonoscopy 1965Colorectal Cancer Zfvjbnjbi1966FIT-DNA0443SLE38 1965 FOBT1965 5251Ovnicguqehntk1966Influenza Vaccine (#1)5107/30/2018, 05/04/2016 Procedures Procedure NamePriorityDate/TimeAssociated DiagnosisCommentsXR SHOULDER 2+ VIEWS LEFT02/26/2025 9:30 AM EDT from Last 3 Months Results * XR shoulder 2+ views left (02/26/2025 9:30 AM EDT)Anatomical RegionLaterality ModalityUpper Extremities, ShoulderLeftRadiographic ImagingSpecimen (Source) Anatomical Location / LateralityCollection Method / VolumeCollection Time Received Time02/26/2025 9:30 AM EDT Narrative 02/26/2025 9:32 AM EDT [facility] ?[address] ? [place] [address] ?XRay Report ? Signed ? Patient: SMITH HEATH P ?MR#: [id number] ?? : 1965 ?Acct:[id number] ?? Age/Sex: 59 / M ?ADM Date: 02/25/25 ?? Loc: RAD ? Attending Dr: DONOVAN BERNSTEIN ? Ordering Physician: DONOVAN BERNSTEIN ?? Date of Service: 02/25/25 ?? Procedure(s): XR shoulder LT min 2V ?? Accession Number(s): [id number] ? cc: DONOVAN BERNSTEIN ; Zohaib Ansari M.D. ? [facility] ? [address] ? [place] [address] ? Patient Name: ?? SMITH HEATH ? MRN: [id number] ? date: 1965 ?Sex: M ?? Assigned Patient Location: RAD ?? Current Patient Location: ? Accession/Order Number: [id number] ?? Exam Date: 02/25/2025 ??17:07 ?Report Date: 02/26/2025 ??09:30 ? At the request of: ?? DONOVAN ??DAY ? Procedure: ??XR shoulder LT min 2V ? LEFT SHOULDER - 3 views ? CLINICAL HISTORY: Rotator cuff syndrome of left shoulder, M75.102 ? COMPARISON: None ? AP, Y and Grashey views were obtained. ??There is no acute fracture or ?? dislocation. ??There is mild superior subluxation of the humeral head and ?? narrowing of the acromiohumeral interval which could indicate rotator cuff ?? disease. ??There is hypertrophy at the acromioclavicular and to a lesser extent ?? at the inferior glenohumeral joint. ??Subchondral cystic change and sclerosis ?? are noted at the greater tuberosity. ??Subtle soft tissue calcification is ?? visualized adjacent to the greater tuberosity , likely within the rotator ?? cuff. ??There are no other significant soft tissue abnormalities. ? XR/XR shoulder LT min 2V ?? IMPRESSION: ? DEGENERATIVE CHANGES AND SUSPECTED ROTATOR CUFF DISEASE ? Impression dictated by: Pilar Singh M.D. ??02/26/2025 9:30 AM ? Dictation Location: [facility]--30 ? Electronically authenticated by: [id number] ??Y ?? Date: 02/26/2025 ??09:30 ? Dictated By: ?Pilar Singh M.D. ? Signed By: ?02/26/25 0932 ? DD/ 0930 ? TD/TT: ? Animation Director: Procedure Note Radiology, Radiologist, MD - 02/26/[address] [address] XRay Report Signed Patient: SMITH HEATH PMR#: [id number] : 1965Acct:[id number] Age/Sex: 59 / MADM Date: 02/25/25 Loc: RAD Attending Dr: DONOVAN BERNSTEIN Ordering Physician: DONOVAN BERNSTEIN Date of Service: 02/25/25 Procedure(s): XR shoulder LT min 2V Accession Number(s): [id number] cc: DONOVAN BERNSTEIN ; Zohaib Ansari M.D. The [address] [address] Patient Name: SMITH HEATH MRN: [id number] date: 1965 Sex: M Assigned Patient Location: RAD Current Patient Location: Accession/Order Number: [id number] Exam Date: 02/25/2025 17:07 Report Date: 02/26/2025 09:30 At the request of: DONOVAN BERNSTEIN Procedure: XR shoulder LT min 2V LEFT SHOULDER - 3 views CLINICAL HISTORY: Rotator cuff syndrome of left shoulder, M75.102 COMPARISON: None AP, Y and Grashey views were obtained. There is no acute fracture or dislocation. There is mild superior subluxation of the humeral head and narrowing of the acromiohumeral interval which could indicate rotator cuff disease. There is hypertrophy at the acromioclavicular and to a lesserextent at the inferior glenohumeral joint. Subchondral cystic change andsclerosis are noted at the greater tuberosity. Subtle soft tissue calcification is visualized adjacent to the greater tuberosity , likely within the rotator cuff. There are no other significant soft tissue abnormalities. XR/XR shoulder LT min 2V IMPRESSION: DEGENERATIVE CHANGES AND SUSPECTED ROTATOR CUFF DISEASE Impression dictated by: Pilar Singh M.D. 02/26/2025 9:30 AM Dictation Location: [place] [address] Electronically authenticated by: [id number] Y Date: 9:30 Dictated By: Pilar Singh M.D. Signed By:02/26/2532 DD/ 9 TD/TT: Animation Director: Authorizing ProviderResult TypeResult StatusBremarline Bernstein MDIMG XR PROCEDURES Final Result from Last 3 Months Insurance Care Teams Team MemberRelationshipSpecialtyStart DateEnd Zohaib Ansari MD [address] [place] [address] PCP - GeneralFami Medicine02/19/25
--- OUTSIDE RECORDS SUMMARY | 2025-04-30 14:31 | XMS_ITS | Clinical Summary ---
Author Organization [facility] Address [address] [place] [address] Care Team Providers Care Land Classifier Name Role Phone Unavailable Primary Care Provider Unavailabl e Encounters DateTypeDepartmentCare JsitLahlkzvhpdg78/26/2025Lab Requisition [facility] [address] [place] [address] Theron Cooney DDS Person encountering health services to consult on behalf of another personfrom Last 3 Months Social History Tobacco UseTypesPacks/DayYears UsedDateSmoking Tobacco: Never AssessedSex and Gender InformationValueDate RecordedSex Assigned at BirthNot on fileLegal Sex Male12/17/2024 7:49 PM EDTGender IdentityNot on fileSexual OrientationNot on file Plan of Treatment Not on file Procedures Procedure NamePriorityDate/TimeAssociated DiagnosisCommentsSURGICAL PATHOLOGY Dawjuas3702/22/2025 12:45 PM EDT Person encountering health services to consult on behalf of another person from Last 3 Months Results * SURGICAL PATHOLOGY (02/22/2025 12:45 PM EDT)ComponentValueRef RangeTest Method Analysis TimePerformed AtPathologist SignatureCase ReportSurgical Pathology Report ? Case: [id number] ? Authorizing Provider: ??Theron Cooney DDS ?Collected: ? 02/22/2025 12:45 PM? Ordering Location: ? [facility] ?Received: ?02/26/2025 07:57 AM ? [facility] ? Pathologist: ? Roman Peña MD ? Specimen: Oral, Mucosa, Biopsy, BETWEEN 8 & 9 ? 02/27/2025 1:47 PM [facility] LABFINAL DIAGNOSISBetween teeth #8-#9, excision: - Invasive squamous cell carcinoma, moderately differentiated. ICD-10: C03.008 1:47 PM [facility] at 1347 EDT Diagnosis ElieserDrEscobar Hastings concurs.02/27/2025 1:47 PM [facility] LABMicroscopic DescriptionHistologic sections reveal an infiltrative proliferation of malignant keratinizing squamous cells arranged in small nests and islands. Significant pleomorphism and mitotic activity are identified. The overlying surface epithelium is dysplastic.02/27/2025 1:47 PM [facility] LABGross DescriptionA. Oral, Mucosa, Biopsy Labeled: Between teeth #8-#9 Received: In formalin Number of tissue fragments: Multiple Specimen dimensions: 2 x 1.7 x 0.6 cm in aggregate Description: Day-brown, irregular Cassette Code: Totally submitted sectioned in A1 Gross examination performed at [facility], [address] [place] [address] 02/27/2025 1:47 PM [facility] LABClinical HistoryThis is an excision of a 1.0 x 0.8 cm, pink lesion between teeth #8-#9 (facial and palate). A previous biopsy for severe dysplasia is noted.02/27/2025 1:47 PM [facility] LABPerforming LabDiagnostic interpretation performed at: [facility], [address] [facility], [address] [address] CLIA# [id number] Order Picker/Assembler: Joseph Trejo MD02/27/2025 1:47 PM [facility] LABDisclaimerLaboratory Developed Test (LDT) Disclaimer: Performance characteristics of immunohistochemical, immunofluorescent, and chromogenic in-situ hybridization tests have been determined by the performing laboratory within the [facility] Department of Pathology and Laboratory Medicine ([facility], [facility], [facility], [facility], [facility], [facility], or [facility]) in a manner consistent with CLIA requirements. One or more of these tests may not have been cleared or approved by the FDA. The [facility] Department of Pathology and Laboratory Medicineis regulated under CLIA as qualified to perform high-complexity testing. These tests are used for clinical purposes. These should not be regarded as investigational or for research. Positive and negative controls stain appropriately.02/27/2025 1:47 PM EDT [facility] LABSpecimen (Source)Anatomical Location / LateralityCollection Method / VolumeCollection TimeReceived TimeTissueORAL MUCOUS MEMBRANE STRUCTURE / Rrtwoad4902/22/2025 12:45 PM EDT02/26/2025 7:57 AM EDT Narrative Authorizing ProviderResult TypeResult StatusIhor Daniel Cooney DDSSURGICAL PATHOLOGYFinal ResultPerforming OrganizationAddressCity/State/ZIP CodePhone Number [facility] [address] [facility] [address] [place] [phone], [place] from Last 3 Months Insurance
--- NOTE | 2025-04-30 14:40 | MR_ITS ---
[place] [id number] Patient Name: RANDY LEROY MRN: [id number] date: 1965 Sex: M Assigned Patient Location: MRI Current Patient Location: MRI Accession/Order Number: [id number] Exam Date: 04/30/2025 15:00 Report Date: 04/30/2025 16:11 At the request of: PANDA MUHAMMAD MD Procedure: MR shoulder LT wo con EXAMINATION: MRI OF THE LEFT SHOULDER CLINICAL HISTORY: Left Rotator Cuff Tear COMPARISON: None TECHNIQUE: Multiecho, multiplanar imaging was performed with use of an extremity coil. No contrast was administered. FINDINGS: Bones/Joints: Moderate joint effusion. Subacromial/subdeltoid bursitis. Degenerative changes involving the AC and glenohumeral joints with cystic changes involving the humeral head. No fracture is seen. Labrum: No focal abnormality. Biceps tendon: Fluid seen within the bicipital groove. The tendon is not clearly seen. Supraspinatus: Complete tear with retraction of fibers approximately 4.7 cm. There is muscle atrophy suggesting a chronic process. Infraspinatus: Partial-thickness tear joint side with associated full-thickness tear near its insertion upon the greater trochanter. There is muscle atrophy suggesting a chronic process. Teres Minor: Normal Subscapularis: Tendinosis with partial-thickness tear extending into the retinacular fibers. MR/MR shoulder LT wo con IMPRESSION: DEGENERATIVE CHANGES INVOLVING THE LEFT SHOULDER WITH COMPLETE TEAR OF THE SUPRASPINATUS WITH RETRACTION OF FIBERS APPROXIMATELY 4.7 CM. IN ADDITION, THERE APPEARS TO BE PARTIAL THICKNESS TEARS INVOLVING THE INFRASPINATUS AND SUBSCAPULARIS WITH A FULL-THICKNESS TEAR INVOLVING THE INFRASPINATUS NEAR ITS INSERTION UPON THE GREATER TROCHANTER. MODERATE JOINT EFFUSION WITH SUBACROMIAL/SUBDELTOID BURSITIS. Impression dictated by: Greg Sow Jr., D.O. 04/30/2025 4:11 PM Dictation Location: [place] [id number] Electronically authenticated by: [id number] Y Date: 04/30/2025 16:11
--- OUTSIDE RECORDS SUMMARY | 2025-04-30 14:40 | XMS_ITS | CCD ---
Author Organization [facility] CliniSyor Care Team Providers Care Clinical Engineering Manager Name Role Phone JASIEL WILKERSON Admitting Unavailable JASIEL WILKERSON Attending Unavailable PANDA MUHAMMAD Primary Care Unavailable CA Procedure Practitioner Unavailab le EBRAHEIM, MIKE Admitting Unavailable EBRAHEIM, MIKE Primary Care Unavailable EBRAHEIM, MIKE Attending Unavailable EBRAHEIM, MIKE Referring Unavailable EBRAHEIM, MIKE Surgeon Unavailable VALERIE SAWANT Surgeon Unavailable CA Procedure Practitioner Unavailab Panda Marvin Primary Care Physician Panda Muhammad Referring Unavailable Faustino TORRES Attending Unavailable Faustino TORRES Attending Unavailable Unavailable Primary Care Provider UnavailPanda Marshall MD Primary Care Provider SHAYY CAMERON Attending Unavailable DONOVAN OTERO Referring Unavailable SHAYY CAMERON Attending Unavailable DONOVAN OTERO Referring Unavailable Panda Muhammad MD Primary Care Provider PANDA MUHAMMAD Primary Care Unavailable AL, THERON Referring Unavailable BRANDIN RIVERA Attending Unavailable PANDA MUHAMMAD Primary Care Unavailable MARTINA MILLS Attending Unavailable BRANDIN RIVEAR Referring Unavailable PANDA MUHAMMAD M Primary Care Unavailable AL, THERON Referring Unavailable MIGUELBRANDIN Attending Unavailable PANDA MUHAMMAD M Primary Care Unavailable MARTINA MILLS Attending Unavailable BRANDIN RIVERA Referring Unavailable PANDA MUHAMMAD M Primary Care Unavailable BRANDIN RIVERA Referring Unavailable BRANDIN RIVERA Attending Unavailable HINA VELASQUEZ Referring Unavailable PANDA MUHAMMAD M Primary Care Unavailable DEBORAH TURNER Attending Unavailable HINA VELASQUEZ Referring Unavailable DEBORAH TURNER Attending Unavailable PANDA MUHAMMAD Primary Care Unavailable PANDA MUHAMMAD M Primary Care Unavailable HINA VELASQUEZ Referring Unavailable BRANDIN RIVERA Attending Unavailable PANDA MUHAMMAD Primary Care Unavailable AL, THERON Referring Unavailable BRANDIN RIVERA Attending Unavailable PANDA MUHAMMAD Primary Care Unavailable LA, THERON Referring Unavailable BRANDIN RIVERA Attending Unavailable BRANDIN RIVERA Admitting Unavailable HINA VELASQUEZ Referring Unavailable WOODY MUHAMMADELDON Penaloza Primary Care Unavailable PANDA MUHAMMAD Primary Care Unavailable HINA VELASQUEZ Referring Unavailable BRANDIN RIVERA Attending Unavailable PANDA MUHAMMAD Primary Care Unavailable MARTINA MILLS Attending Unavailable BRANDIN RIVERA Referring Unavailable Allergies Allergy ClassificationReported Allergen(s)Allergy TypeDate of OnsetReaction(s) Facility (3 sources)Acetaminophen / oxyCODONE; Translations: [PERCOCET]Drug All[facility] 13[facility]91[facility]3559[facility])Acetaminophen / oxyCODONE; Translations: [acetaminophen-oxycodone]Drug AllergyNausea and vomiting (disorder)[facility] (1 source)No Known Medication Allergies; Translations: [No Known Medication Allergies]Propensity to adverse reactions (disorder)[facility] Repository (9 sources)Acetaminophen / oxyCODONEDrug Gcbdygv95-78-2917Gnzeic and VomitingOS[facility] Medications Current Medications MedicationDrug Class(es)DatesSig (Normalized)Sig (Original)acetaminophen 500 mg oral tablet (5 sources)Start: 93-38-0785ndashjkpjsqzf (TYLENOL) 500 MG tablet Take 1-2 tablets as needed for pain every 6 hours, alternating with Ibuprofen. If using [facility] [place], decreased tylenol to 1 tablet every 6-8 hours. 03/25/2025 Active Start: 03-25-2025 End: 35-49-4480rsvu 1 tablet by mouth every four hours as vlytnd292 mg, Oral, EVERY 4 HOURS NEEDED, Starting on Tue03/25/25 at 1205, Until Tue03/25/25 at 1819, Mild Pain, Maximum dose of acetaminophen is 4000 mg from all sources in 24 hours., Post-op/Post-Procaspirin 81 mg delayed release oral tablet (10 sources)Platelet Aggregation Inhibitor, Nonsteroidal Anti-inflammatory Drug Start: 24-08-5321Owqcpix [address] tablet Take 1 tablet by mouth. 05/09/2024 Activebacillus coagulans [id number] unt / inulin 250 mg oral capsule (5 sources)Start: 03-25-2025 End: 85-20-1327molu 1 capsule by mouth once dailyBacillus Coagulans-Inulin (Probiotic) 1-250 BILLION-MG capsule Take 1 capsule by mouth daily. 90 capsule 11 03/25/2025 06/24/2025 Activechlorhexidine gluconate 1.2 mg/ml mouthwash (13 sources)Start: 03-25-2025 End: 18-46-8419zaev 15 mL by mouth four times daily in the eveningchlorhexidine 0.12 % Solution oral solution Swish and spit 15 mL 4 times daily for 7 days. 473 mL 03/25/2025 4:21 PM EDT 03/25/2025 ActiveStart: 03-25-2025 End: 49-10-9795zijr 15 mL by mouth twice dailychlorhexidine 0.12 % Solution oral solution Swish and spit 15 mL 2 times daily for 7 days. 210 mL 03/25/2025 03/25/2025 DiscontinuedStart: 02-22-2025 End: 10-41-5748zjddimrbzyhhu 0.12 % Solution oral solution SWAB AREA 3 TIMES A DAY SPIT OUT DO NOT SWALLOW 02/22/2025 03/25/2025 Discontinued (Stop Taking at Discharge)dexamethasone 2 mg oral tablet (7 sources)CorticosteroidStart: 21-68-9815gcsYIGYRdhtbr (Decadron) 2 MG tablet Indications: Chronic bilateral low back pain with bilateral sciatica 2mg 3 pills po X3 days,2 pills po daily X3 days , then 1 pill po daily X3 days then stop 9 days 18 pills 18 tablet 1 12/15/2023 ActiveFish Oils (1 source)Start: 69-29-4167sqre 1000 mg by mouth once dailyOmega-3 Fish Oil 1,000 mg, Oral, Daily, Refills(s) 0 Start Date: 05/09/24 Status: Ordered gabapentin 100 mg oral capsule (4 sources)Anti-epileptic AgentStart: 04-08-2025 End: 57-05-3837ykej 1 capsule by mouth three times dailyGabapentin 100 MG capsule Take 1 capsule by mouth Three times a day. 04/13/2025 04/13/2026 Active Lidocaine viscous-Alum & Mag Tzsvqhvtk-Mmwzzp-fuaebsomupXJXRC oral mouthwash 1:1:1 (3 sources)Start: 11-73-9872jrffa 15 mL topically every six hours as needed Lidocaine viscous-Alum & Mag Gkisdkjlj-Xuspsz-faetgloimiIOEBC oral mouthwash 1:1:1 Swish and spit 15 mL every 6 hours as needed. 480 mL 1 03/25/2025 4:21 PM EDT 03/25/2025 ActiveMulti Vitamins oral tablet (1 source)Start: 21-97-7296pcwm 1 tablet by mouth once dailyMulti Vitamins oral tablet 1 tab(s), Oral, Daily, Refill(s) 0 Start Date: 05/09/24 Status: Ordered Multiple Vitamin (MULTI-VITAMINS PO) (9 sources)Start: 24-13-4646Krocosvh Vitamin (MULTI-VITAMINS PO) Take by mouth. 05/09/2024 ActiveOmega-3 Fatty Acids (OMEGA 3 FISH OIL PO) (9 sources)Start: 15-43-1162Jnbjn-3 Fatty Acids (OMEGA 3 FISH OIL PO) Take 1,000 mg by mouth. 05/09/2024 Active Completed/Discontinued Medications MedicationDrug Class(es)DatesSig (Normalized)Sig (Original)acetaminophen 325 mg / HYDROcodone bitartrate 5 mg oral tablet (6 sources)Opioid AgonistStart: 02-22-2025 End: 89-20-6758tvoi 1 tablet by mouth every four to six hours as needed for pain hydroCODone-acetaminophen 5-325 MG tablet take 1 tablet by mouth every 4-6 hours as needed for pain02/22/2025 03/25/2025 Discontinued (Stop Taking at Discharge) amoxicillin 250 mg / clavulanate 125 mg oral tablet (5 sources)Penicillin-class AntibacterialStart: 03-25-2025 End: 34-76-0615wfih 1 tablet by mouth every twelve hours1 tablet, Oral, EVERY 12 HOURS, First dose on Tue03/25/25 at 2100, Until DiscontinuedStart: 03-25-2025 End: 03-44-5300knba 1 tablet by mouth every twelve hours in the evening Amoxicillin-clavulanate 875-125 MG tablet Take 1 tablet by mouth every 12 hours for 14 days. 28 tablet 03/25/2025 4:21 PM EDT 03/25/2025 04/08/2025 Active calcium chloride 0.0014 meq/ml / potassium chloride 0.004 meq/ml / sodium chloride 0.103 meq/ml / sodium lactate 0.028 meq/ml injectable solution (2 sources)Start: 03-25-2025 End: 43-21-3923Ufdfdwrflqb, at 100 mL/hr, CONTINUOUS, Starting on Tue03/25/25 at 1215, Until Tue03/25/25 at 181, Saline lock when tolerating oral intake and remove IV per ASU protocol., Post-op/Post-Proc1 ml haloperidol 5 mg/ml prefilled syringe (1 source)Typical AntipsychoticStart: 03-25-2025 End: 68-31-1460gclr 1 mg intravenously every hour as needed1 mg, Intravenous, EVERY 1 HOUR NEEDED, 2 doses, Starting on Tue03/25/25 at 1028, Until Tue03/25/25 at 181, Nausea, SECOND line antiemetic, Recovery1 ml heparin sodium, porcine 5000 unt/ml prefilled syringe (1 source)Unfractionated Heparin, Anti-coagulantStart: 03-25-2025 End: ,000 Units, Subcutaneous, PRE-OP, 1 dose, On Tue03/25/25 at 0530, Pre-op/Pre-Proc1 ml HYDROmorphone hydrochloride 1 mg/ml cartridge (1 source)Opioid AgonistStart: 03-25-2025 End: .5 mg, Intravenous, EVERY 10 MINUTES NEEDED, 8 doses, Starting on Tue03/25/25 at 1028, Until Tue03/25/25 at 181, Moderate Pain, Severe Pain, Mild Pain, May give a total of 4mg in PACU., Recoveryibuprofen 200 mg oral tablet (1 source)Nonsteroidal Anti-inflammatory DrugStart: 03-25-2025 End: 53-35-6756ejov 1 tablet by mouth every six hours as varoub327 mg, Oral, EVERY 6 HOURS NEEDED, Starting on Tue03/25/25 at 1205, Until Tue03/25/25 at 181, Mild Pain, Give with food, Post-op/Post-Prociohexol (OMNIPAQUE) 350 MG/ML injection 1-171 mL (2 sources)Start: 03-18-2025 End: -171 mL, Intravenous, ONCE, 1 dose, On Tue03/18/25 at 1015, Extravasation Risk, CT Procedurelabetalol hydrochloride 5 mg/ml injectable solution (1 source)beta-Adrenergic BlockerStart: 03-25-2025 End: mg, Intravenous, EVERY 15 MINUTES NEEDED, Starting on Tue03/25/25 at 1028, Until Tue03/25/25 at 1819, FIRST line HTN. , For SBP > 180 Hold if HRLidocaine viscous 80 mL, diphenhydrAMINE (BENADRYL) 80 mL, alum/mag hydrox.-simethicone 80 mL mouthwash (4 sources)Start: 03-25-2025 End: 65-70-2470tmfyk 15 mL topically every six hours as neededLidocaine viscous 80 mL, diphenhydrAMINE (BENADRYL) 80 mL, alum/mag hydrox.-simethicone 80 mL mouthwash Swish and spit 15 mL every 6 hours as needed for up to 7 days. 1 Bottle 03/25/2025 04/01/2025 ExpiredStart: 03-25-2025 End: 59-73-2031lajdi 15 mL topically every six hours as neededLidocaine viscous 80 mL, diphenhydrAMINE (BENADRYL) 80 mL, alum/mag hydrox.-simethicone 80 mL mouthwash Swish and spit 15 mL every 6 hours as needed for up to 7 days. 1 Bottle 03/25/2025 04/01/2025 ActiveStart: 03-25-2025 End: 16-84-1095gqxck 15 mL topically every six hours as neededLidocaine viscous 80 mL, diphenhydrAMINE (BENADRYL) 80 mL, alum/mag hydrox.-simethicone 80 mL mouthwash Swish and spit 15 mL every 6 hours as needed for up to 7 days. 1 Bottle 03/25/2025 03/25/2025 Discontinued2 ml ondansetron 2 mg/ml injection (2 sources)Serotonin-3 Receptor AntagonistStart: 03-25-2025 End: 56-58-1764alkm 8 mg intravenously every four hours as needed8 mg, Intravenous, EVERY 4 HOURS NEEDED, Starting on Tue03/25/25 at 1357, Until Tue03/25/25 at 1819, Nausea / Vomiting, 1st line, Post-op/Post-ProcStart: 03-25-2025 End: 93-23-8748ovxt 4 mg intravenously every four hours as needed4 mg, Intravenous, EVERY 4 HOURS NEEDED, Starting on Tue03/25/25 at 1205, Until Tue03/25/25 at 1357, Nausea / Vomiting, 1st line, Post-op/Post-Procprochlorperazine 5 mg/ml injectable solution (2 sources)PhenothiazineStart: 03-25-2025 End: 89-80-0256sdqf 5 mg intravenously every hour as needed5 mg, Intravenous, EVERY 1 HOUR NEEDED, 1 dose, Starting on Tue03/25/25 at 1358, Until Tue03/25/25 at 1819, Nausea / Vomiting, FIRST Line antiemetic, Do not administer within 6 hours of intra-operative dose. Maximum 40mg/day. For IV route: Give undiluted by slow IV push at a rate of 5 mg/min., RecoveryStart: 03-25-2025 End: 13-19-9792kcpe 5 mg intravenously every hour as needed5 mg, Intravenous, EVERY 1 HOUR NEEDED, 2 doses, Starting on Tue03/25/25 at 1028, Until Tue03/25/25 at 1357, Nausea / Vomiting, FIRST Line antiemetic, Do not administer within 6 hours of intra-operative dose. Maximum 40mg/day. For IV route: Give undiluted by slow IV push at a rate of 5 mg/min., RecoveryScopolamine (1 source)AnticholinergicStart: 03-25-2025 End: 42-38-6764Njwpcmeavai (TRANSDERM-SCOP) patch 1 patch20 ml sodium chloride 9 mg/ml injection (2 sources)Start: 03-18-2025 End: -100 mL, Intravenous, ONCE NEEDED, 1 dose, Starting on Tue03/18/25 at 1014, Until Tue03/18/25 at 1014, Flush, CT ProcedureStart: 03-18-2025 End: -100 mL, Intravenous, ONCE NEEDED, 1 dose, Starting on Tue03/18/25 at 1011, Until Tue03/18/25 at 1011, Flush, CT Procedure Problems Active Problems Problem ClassificationProblemDateDocumented DateEpisodic/ChronicCancer of head and neck (20 sources)Carcinoma in situ of lip; 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]Onset: 724278-43-6054PuxckqcZnrheynxd of teeth and jaw (2 sources)Partially edentulous maxilla; Translations: [Partial loss of teeth, unspecified cause, unspecified class]56-84-5583MtaezbqeKuvlg connective tissue disease (1 source)Spasm of cervical paraspinous muscle; Translations: [Other muscle spasm]96-61-9703IwhsoxygPrkth connective tissue disease (3 sources)Left rotator cuff syndrome; Translations: [Unspecified rotator cuff tear or rupture of left shoulder, not specified as traumatic]81-53-5588Eajsphou Other gastrointestinal disorders (1 source)Abnormal feces; Translations: [Other fecal abnormalities]Onset: 61-83-4058HkzmxiwoUydsw gastrointestinal disorders (1 source)Occult blood in rosalz96-67-7281GehmprrpPrrmb injuries and conditions due to external causes (4 sources)Other specified injury of left quadriceps muscle, fascia and tendon, subsequent encounter; Translations: [OTH INJ LT QUAD MUSC FASC TEND SUB]Onset: 39-75-7952VniznzgsApqtw nervous system disorders (1 source)Trigeminal neuralgia; Translations: [Trigeminal neuralgia]04-13-2025 EpisodicOther non-traumatic joint disorders (1 source)Pain in left shoulder; Translations: [Pain in joint, shoulder region] 82-56-4181VwwwcpjyFndih nutritional; endocrine; and metabolic disorders (1 source)Body mass index 30+ - utgyldt65-32-0466CkdsasuVjuzx nutritional; endocrine; and metabolic disorders (1 source)Obesity caused by energy proqyqyvq32-17-0506SceuwgoLtnli nutritional; endocrine; and metabolic disorders (9 sources)Obese class I; Translations: [Obesity (BMI 30.0-34.9)]Onset: 934700-62-6465LulxmiuChjqzpml codes; unclassified (3 sources)Past history of procedure; Translations: [Other specified postprocedural states]61-08-5559KebytzkxTlydaqgi codes; unclassified (2 sources)Other specified health status; Translations: [Other specified health status]Onset: 42-49-5245FqekpcttXuhkgfvlkzdw (2 sources)Post Op Visit; Translations: [Post Op Visit]Onset: 04-18-2025 Past or Other Problems Problem ClassificationProblemDateDocumented DateEpisodic/ChronicMood disorders (9 sources)Mood disordersOnset: 03-14-2025 Resolved: Results Test NameValueInterpretationReference RangeFacilitySURG PATH REQUESTon [id number] ReportNoCorey HospitalComment on above:Result Comment: Surgical Pathology Report Case: [id number] Authorizing Provider: Brandin Rivera MD, PhD Collected: 04/15/2025 08:29 AM [facility]ing [facility] Received: 04/15/2025 08:28 AM [place] Pathologist: Cassi Pereira MD Specimen: SURG PATH, A) Oral, mucosa, biopsy, between 8 & 9Performed By: #### SURGP #### [facility] (DEFAULT) [address] [place] [address]Ehqshmco HistoryReceived is a request for second opinion consultation by Dr. Brandin Rivera. Please review outside slides Clinical History: This is an excision of a 1.0 x 0.8 cm, pink lesion between teeth #8-#9 (facial and palate). A previous biopsy for severe dysplais is noted.[facility] HospitalComment on above:Performed By: #### SURGP #### [facility] (DEFAULT) [address] [address]Nocdm DescriptionNoCorey HospitalComment on above:Result Comment: The following material(s) are received from [facility], [address] [place] [address], [place] [address] with an identifying Surgical Pathology Report: 1 H&E slide labeled [id number]. Outside materials are returned in 60 days under separate cover with our number recorded on them. Grosser for this case was: Beatrice WilkersonPerformed By: #### SURGP #### [facility] (DEFAULT) [address] [place] [address]Rdtiericwkl DescriptionA microscopic examination was performed.[facility] HospitalComment on above: Performed By: #### SURGP #### [facility] (DEFAULT) [address] [place] [address]Uexpbxrqng DiagnosisNoCorey HospitalComment on above:Result Comment: Outside Slides [id number] (02/26/25) A. Between teeth #8-#9, excision: Invasive squamous cell carcinoma, conventional. at 1612 EDTPerformed By: #### SURGP #### [facility] (DEFAULT) [address] [place] [address]Gohlaypynnpi Interpretation Performed at:[facility] HospitalComment on above:Result Comment: Professional interpretation performed remotely at a secondary location, address on file. For Immediate Release to Patient's Sponduuhart? YesPerformed By: #### SURGP #### [facility] (DEFAULT) [address] [address]Vetx ReportNoCorey Hospital Comment on above:Result Comment: Surgical Pathology Report Case: [id number] Authorizing Provider: Brandin Rivera MD, PhD Collected: 04/15/2025 08:17 AM Ordering Location[facility] Received: 04/15/2025 08:17 AM [place] Pathologist: Cassi Pereira MD Specimen: SURG PATH, A) Gingiva, biopsy, gingiva 8&9Performed By: #### SURGP #### [facility] (DEFAULT) [address] [address]Bscgiozk HistoryReceived is a request for second opinion consultation by Dr. Brandin Rivera. Please review outside slides Clinical History: This lesion was biopsies from the gingiva between teeth #8 and #9. It is pink/red and measures 1.5 x 1.0 cm. Clinical Information: Squamous cell carcinoma.[facility] HospitalComment on above: Performed By: #### SURGP #### [facility] (DEFAULT) [address] [address]Ppwde DescriptionNoCorey HospitalComment on above:Result Comment: The following material(s) are received from [facility], [address] [place] [address] with an identifying Surgical Pathology Report: 4 H&E and 2 non-H&E slides labeled [id number]. Outside materials are returned in 60 days under separate cover with our number recorded on them. Grosser for this case was: Beatrice RenoPerformed By: #### SURGP #### [facility] (DEFAULT) [address] [address]Eelfnszamfc DescriptionA microscopic examination was performed.[facility] HospitalComment on above: Performed By: #### SURGP #### [facility] (DEFAULT) [address] [address]Vpmbrzaxay DiagnosisHarrison Community HospitalComment on above:Result Comment: Outside Slides [id number] (12/17/24) A. Gingiva between teeth #8 and #9, biopsy: At least high-grade dysplasia. Submitted T. Pallidum and GMS stains are negative. at 1612 EDTPerformed By: #### SURGP #### [facility] (DEFAULT) [address] [address]Llacwuktdbjg Interpretation Performed at:[facility] HospitalComment on above:Result Comment: Professional interpretation performed remotely at a secondary location, address on file. For Immediate Release to Patient's [facility] – BeaverOfidiumt? YesPerformed By: #### SURGP #### [facility] (DEFAULT) [address] [place] [address]XOFMG TYPE RECONFIRMATIONon [id number]/RH(D) TYPEPositive [facility] HospitalOSKettering Health HamiltonABO/RH(D) TYPEPositiveNormal [facility] HospitalComment on above:Performed By: #### TYPEC #### [facility] (DEFAULT) [address] [place] [address]ELSBVJJSUK CARDIAC MONITORING STRIPon [id number] Health Urbana HospitalCONTINUOUS CARDIAC MONITORING STRIPOrdered By: Unassigned Pacs on 50-47-0671SEGMercy Health Urbana Hospital Work Phone: HEMOGLOBINon 21-01-9911Rlhzpauyta (Bld) [Mass/Vol]13.3 g/dLLow13.4 - 16.8 g/dLMercy Health Urbana HospitalInterpretation and review of laboratory resultsAbArroyo Grande Community Hospital Hemoglobin (Bld) [Mass/Vol]13.3 g/dLLow13.4-16.8[facility] HospitalComment on above:Performed By: #### HGB #### [facility] (DEFAULT) [address] [place] [address]UUSA PATH REQUESTon [id number] ReportNoCorey HospitalComment on above:Result Comment: Surgical Pathology Report Case: [id number] Authorizing Provider: Brandin Rivera MD, PhD Collected: 03/25/2025 08:58 AM Ordering Location: [facility] Received: 03/25/2025 09:27 AM Pathologist: Carley Rueda MD Intraop: FREDDIE Cristobal Specimens: A) - SURG PATH, Right lateral superior mucosa B) - SURG PATH, Right mid superior mucosa C) - SURG PATH, Right anterior superior mucosa D) - SURG PATH, Left anterior superior mucosa E) - SURG PATH, Left mid superior mucosa F) - SURG PATH, Left lateral superior mucosa G) - SURG PATH, Deep soft tissue over left pre maxilla H) - SURG PATH, Left midline hard palate I) - SURG PATH, Left lateral hard palate J) - SURG PATH, Right lateral hard palate K) - SURG PATH, Right anterior hard palate L) - SURG PATH, Teeth for gross M) - SURG PATH, Anterior maxillectomy, double short stitch = anterior maxilla midline, single long stitch = midline hard palatePerformed By: #### SURGP #### [facility] (DEFAULT) [address] [place], [place] [address]Xoomeedv HistoryPreop Diagnosis: Primary oral squamous cell carcinoma. Medical History: Squamous cell carcinoma of oral mucosa. Joint problem. Carcinoma in situ of lip. Arthritis. Obesity. Tendon tear. History of inguinal herniorrhaphy. Unspecified atrial fibrillation. Rotator cuff syndrome of left shoulder.[facility] HospitalComment on above:Performed By: #### SURGP #### [facility] (DEFAULT) [address] [place], [place] [address]Gyell DescriptionNoCorey HospitalComment on above:Result Comment: The specimens are received in thirteen properly labeled containers with the patient's name and accession number. A. The specimen is designated right lateral superior mucosa and consists of two pink-camacho fragments of soft tissue measuring 0.8 x 0.3 x 0.3 cm and 0.9 x 0.4 x 0.3 cm. Both soft tissue fragments aresubmitted entirely for frozen section diagnosis and are resubmitted as received in cassette A1. Additionally submitted are two fragments of bone ranging from 0.2 to 0.3 cm in greatest dimension. The bony fragments are submitted entirely in cassette A2. TE 2 Note: Cassette A2 will be ready after decalcification. B. The specimen is designated right mid superior mucosa and consists of a 2.2 x 0.4 x 0.3 cm fragment of soft tissue. The specimen is submitted entirely for frozen section diagnosis and is resubmitted as received in cassette B1. TE 1 C. The specimen is designated right anterior superior mucosa and consists of a 1.9 x 0.4 x 0.3 cmfragment of soft tissue. The specimen is submitted entirely for frozen section diagnosis and is resubmitted as received in cassette C1. TE 1 D. The specimen is designated left anterior superior mucosa and consists of a 1.6 x 0.3 x 0.3 cm fragment of soft tissue. The specimen is submitted entirely for frozen section diagnosis and is resubmitted as received in cassette D1. TE 1 Note: The remaining specimen may not survive processing. E. The specimen is designated left mid superior mucosa and consists of a 2.7 x 0.5 x 0.4 cm fragment of soft tissue. The specimen is submitted entirely for frozen section diagnosis and is resubmitted as received in cassette E1. TE 1 F. The specimen is designated left lateral superior mucosa and consists of three fragments ranging from 0.7 x 0.2 x 0.2 cm to 0.9 x 0.4 x 0.3 cm. All fragments are submitted for frozen section diagnosis and are resubmitted as received in cassette F1. TE 1 G. The specimen is designated deep soft tissue over left premaxilla and consists of a 1.3 x 0.5 x0.4 cm fragment of soft tissue.The specimen is submitted entirely for frozen section diagnosis and is resubmitted as received in cassette G1. TE 1 H. The specimen is designated left midline hard palate and consists of a 1.3 x 0.4 x 0.3 cm fragment of soft tissue. The specimen is submitted entirely for frozen section diagnosis and is resubmitted as received in cassette H1. TE 1 I. The specimen is designated left lateral hard palate and consists of a 1.1 x 0.5 x 0.5 cm fragment of soft tissue. The specimen is submitted entirely for frozen section diagnosis and is resubmitted as received in cassette I1. TE 1 J. The specimen is designated right lateral hard palate and consists of a 1.8 x 0.8 x 0.4 cm fragment of soft tissue. The specimen is submitted entirely for frozen section diagnosis and is resubmitted as received in cassette J1. TE 1 K. The specimen is designated right anterior hard palate and consists of a 1.6 x 0.6 x 0.4 cm fragment of soft tissue. The specimen is submitted entirely for frozen section diagnosis and is resubmitted as received in cassette K1. TE 1 L. The specimen is designated teeth for gross and consists of a 4.7 x 4.6 0.9 cm aggregate of whole and fragmented teeth. The specimen is for gross purposes only. No sections taken. (P) M. The specimen is designated anterior maxillectomy, double stitch = anterior maxilla midline, single long stitch = midline hard palate and consists of a 5.9 (L/R) x 3.1 (A/P) x 2.0 (S/I) cm maxillectomy specimen oriented per description with six empty tooth sockets and a single molar/possible premolar on the right margin. The anterior mucosa demonstrates two sites of interest. Site 1 consists of a 0.3 x 0.4 cm irregular possible nodule rising 0.1 cm off the mucosal surface located lightly left of the midline coming within 0.2 cm of the superior/anterior mucosa and superior/anterior soft tissue margin, 2.4 cm of the left soft tissue and mucosal margin, 2.5 cm of the left bony margin, 2.6 cm of the right soft tissue and mucosal margin, 2.7 cm of the right bony margin, 0.7 cm of the superior bony margin, and 0.9 cm of the posterior soft tissue and bony margin. Site 2 is an ill defined 1.1 x 0.7 cm puckered, wrinkled area located on the left aspect of the anterior mucosa, 1.0 cm lateral to site 1 that comes within 0.6 cm of the left soft tissue and mucosal margin, 0.7 cm of the left bony margin, 4.6 cm of the right bony margin, 0.2 cm of the superior/anterior mucosal and soft tissue margins, 0.9 cm to the posterior soft tissue and mucosal margin, 0.7 cmto the superior bony margin, and 1.0 cm of the posterior bony margin. Both sites collectively span 1.4 cm. Sectioning both sides reveals only superficial gross involvement. The specimen is inked as follows: Superior/anterior soft tissue mucosal margins - blue, posterior -yellow, left - red, right - orange, and superior bony - black. (P) RS 16 Cassettes: M1, perpendicular sections of left an (more content not included)...Performed By: #### SURGP #### [facility] (DEFAULT) [address] [place], [place] [address]Intraoperative DiagnosisNoCorey HospitalComment on above:Result Comment: A1. Right lateral superior mucosa (Frozen section performed): For Immediate Release to Patient's MyChart? Yes Negative for carcinoma B1. Right mid superior mucosa (Frozen section performed): Negative for carcinoma C1. Right anterior superior mucosa (Frozen section performed): Negative for carcinoma D1. Left anterior superior mucosa (Frozen section performed): Negative for carcinoma E1. Left mid superior mucosa (Frozen section performed): Negative for carcinoma and inflammation F1. Left lateral superior mucosa (Frozen section performed): Focally atypical squamous epithelium with inflammation, favor reactive G1. Deep soft tissue over left pre maxilla (Frozen section performed): Negative for carcinoma H1. Left midline hard palate (Frozen section performed): Negative for carcinoma I1. Left lateral hard palate (Frozen section performed): Negative for carcinoma J1. Right lateral hard palate (Frozen section performed): Negative for carcinoma K1. Right anterior hard palate (Frozen section performed): Negative for carcinoma Note: Parts A through K were all reported to Dr. Rivera on 03/25/2025 at 10:18 a.m. Intraoperative Campaign Management Senior Manager: FREDDIE CristobalPerformed By: #### SURGP #### [facility] (DEFAULT) [address] [place], [place] [address]Kvxoybgfbca DescriptionA microscopic examination was performed.[facility] HospitalComment on above: Performed By: #### SURGP #### [facility] (DEFAULT) [address] [place], [place] [address]Gzumrirosn DiagnosisNoCorey HospitalComment on above:Result Comment: A. Right lateral superior mucosa, excision: Negative for tumor. B. Right mid superior mucosa, excision: Negative for tumor. C. Right anterior superior mucosa, excision: Negative for tumor. D. Left anterior superior mucosa, excision: Negative for tumor. E. Left mid superior mucosa, excision: Negative for tumor. F. Left lateral superior mucosa, excision: Negative for tumor. G. Deep soft tissue over left premaxilla, excision: Negative for tumor. H. Left midline hard palate, excision: Negative for tumor. I. Left lateral hard palate, excision: Negative for tumor. J. Right lateral hard palate, excision: Negative for tumor. K. Right anterior hard palate, excision: Negative for tumor. L. Teeth, gross only: Grossly unremarkable teeth (gross only diagnosis). M. Anterior maxilla, maxillectomy: Squamous epithelium with bone, negative for carcinoma. See note. Note: Multiple levels examined on block M1. Dr. Heydi Gustafson has reviewed part F and part M. at 1258 EDTPerformed By: #### SURGP #### [facility] (DEFAULT) [address] [address]Afrbkejigaeq Interpretation Performed at:[facility] HospitalComment on above:Result Comment: [facility] [address] [address]Xqmjjgsvs By: #### SURGP #### [facility] (DEFAULT) [address] [address]ZOFP AND SCREENon [id number]/RH(D) TYPEPositiveMarietta Osteopathic Clinicpecimen Pwoilauzlv58/25/2025 23:59[facility] CenterOSKettering Health HamiltonABO/RH(D) TYPEPositiveNoCorey HospitalComment on above:Performed By: #### XM #### [facility] (DEFAULT) [address] [address]Nxgmcplk Qvaahuzexp05/25/2025 23:59[facility] HospitalComment on above:Performed By: #### XM #### [facility] (DEFAULT) [address] [address]YJ NECK WITH CONTRASTon [id number] NECK WITH CONTRASTEXAM: CT NECK WITH CONTRAST COMPARISON: None listed 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 Evaluation of the oral cavity is limited by extensive artifact from dental hardware. Parotid glands and submandibular glands are unremarkable. Mucosal contours of the pharynx and larynx are unremarkable. Thyroid gland is unremarkable. No acute osseous abnormality. Degenerative changes with disc osteophyte complexes at C4-5, C5-6 and C6-7 resulting in mild spinal canal stenosis. Visualized brain and orbits are unremarkable. IMPRESSION: No abnormal mass or lymphadenopathy Matheus Russell M.D. This report has been electronically signed and verified by the Radiologist whose name is printed above. This report contains privileged and confidential information and is intended solely for the use of the individual or entity to which it is addressed. If you are not the intended recipient of this report, you are hereby notified that any copying, distribution, dissemination or action taken in relation to the contents of this report is strictly prohibited and may be unlawful. If you have received this report in error, please notify the sender immediately at [phone] and permanently delete the original report and destroy any copies or printouts.[facility] HospitalCT Neck W contrast Hossein [id number]: No abnormal mass or lymphadenopathy Matheus Russell M.D. This report has been electronically signed and verified by the Radiologist whose name is printed above. This report contains privileged and confidential information and is intended solely for the use of the individual or entity to which it is addressed. If you are not the intended recipient of this report, you are hereby notified that any copying, distribution, dissemination or action taken in relation to the contents of this report is strictly prohibited and may be unlawful. If you have received this report in error, please notify the sender immediately at [phone] and permanently delete the original report and destroy any copies or printouts. 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 Evaluation of the oral cavity is limited by extensive artifact from dental hardware. Parotid glands and submandibular glands are unremarkable. Mucosal contours of the pharynx and larynx are unremarkable. Thyroid gland is unremarkable. No acute osseous abnormality. Degenerative changes with disc osteophyte complexes at C4-5, C5-6 and C6-7 resulting in mild spinal canal stenosis. Visualized brain and orbits are unremarkable. 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 Evaluation of the oral cavity is limited by extensive artifact from dental hardware. Parotid glands and submandibular glands are unremarkable. Mucosal contours of the pharynx and larynx are unremarkable. Thyroid gland is unremarkable. No acute osseous abnormality. Degenerative changes with disc osteophyte complexes at C4-5, C5-6 and C6-7 resulting in mild spinal canal stenosis. Visualized brain and orbits are unremarkable. IMPRESSION IMPRESSION: No abnormal mass or lymphadenopathy Matheus Russell M.D. This report has been electronically signed and verified by the Radiologist whose name is printed above. This report contains privileged and confidential information and is intended solely for the use of the individual or entity to which it is addressed. If you are not the intended recipient of this report, you are hereby notified that any copying, distribution, dissemination or action taken in relation to the contents of this report is strictly prohibited and may be unlawful. If you have received this report in error, please notify the sender immediately at [phone] and permanently delete the original report and destroy any copies or printouts. OSKettering Health HamiltonCT Neck W contrast IVOrdered By: Matheus Russell on [id number] [facility] CenterCBC AND ELECTRONIC DIFFon [id number] (Bld) [#/Vol]K/uL0.00 - 0.09 K/uLMercy Health Urbana HospitalBasophils/100 WBC (Bld)0.4 %[facility] HospitalDifferential cell count method Nom (Bld) Electronic DifferentialOSKettering Health HamiltonEosinophils (Bld) [#/Vol]0.15 10*3/uL0.00 - 0.48 K/uLMercy Health Urbana HospitalEosinophils/100 WBC (Bld)3.0 % [facility] HospitalErythrocyte distribution width (RBC) [Ratio]13.0 %10.9 - 14.3 %[facility] HospitalHematocrit (Bld) [Volume fraction]38.6 %Low39.6 - 48.8 %[facility] HospitalHemoglobin (Bld) [Mass/Vol]13.3 g/dLLow13.4 - 16.8 g/dLMercy Health Urbana HospitalImmature granulocytes (Bld) [#/Vol]K/uLNINF - 0.07 K/uLMercy Health Urbana HospitalImmature granulocytes/100 WBC (Bld)0.4 %[facility] HospitalInterpretation and review of laboratory resultsAbnormGalion HospitalLymphocytes (Bld) [#/Vol]1.70 10*3/uL0.83 - 3.57 K/[facility] [place] [facility], BeachwoodLymphocytes/100 WBC (Bld)33.5 %[facility] CenterH (RBC) [Entitic mass]31.0 pg26.1 - 33.3 pgMercy Health Urbana HospitalMCHC (RBC) [Mass/Vol]34.5 g/dL31.9 - 36.5 g/dLMercy Health Urbana HospitalMCV (RBC) [Entitic vol]90.0 fL79.0 - 94.5 [facility] HospitalMonocytes (Bld) [#/Vol]0.49 10*3/uL0.24 - 0.93 K/[facility] [place] [facility], BeachwoodMonocytes/100 WBC (Bld)9.6 %[facility] HospitalNeutrophils (Bld) [#/Vol]2.70 10*3/uL1.57 - 6.19 [facility] HospitalNucleated RBC/100 WBC (Bld) [Ratio]0.0 %[facility] Mercy HospitalPlatelet mean volume (Bld) [Entitic vol]9.8 fL8.7 - 12.[address] [facility] HospitalPlatelets (Bld) [#/Vol]241 10*3/uL146 - 337 KDetwiler Memorial HospitalRBC (Bld) [#/Vol]4.29 10*6/uLLowMarietta Osteopathic Clinicegmented neutrophils/100 WBC (Bld)53.1 %[facility] HospitalWBC (Bld) [#/Vol]5.08 10*3/uL3.73 - 10.10 [facility] CenterAbs Baso Auto<Normal0.00-0.09[facility] HospitalComment on above:Performed By: #### [id number] #### [facility] (DEFAULT) [address] [place] [address]Ecvhewgpc/100 WBC (Bld)0.4 %[facility] HospitalComment on above:Performed By: #### [id number] #### [facility] (DEFAULT) [address] [place] [address]TFFF STATUSElectronic DifferentialNormalOKindred Hospital DaytonComment on above:Performed By: #### [id number] #### [facility] (DEFAULT) [address] [place] [address]Orakfapcsjw (Bld) [#/Vol]0.15 10*3/uLNormal0.00-0.48[facility] HospitalComment on above:Performed By: #### [id number] #### [facility] (DEFAULT) [address] [place] [address]Cwqrmpqcqxk/100 WBC (Bld)3.0 %[facility] HospitalComment on above:Performed By: #### [id number] #### [facility] (DEFAULT) [address] [place] [address]Ydipogwppt (Bld) [Volume fraction]38.6 %Low39.6-48.8[facility] HospitalComment on above:Performed By: #### [id number] #### [facility] (DEFAULT) [address] [place] [address]Rtmsgdezne (Bld) [Mass/Vol]13.3 g/dLLow13.4-16.8[facility] HospitalComment on above:Performed By: #### [id number] #### [facility] (DEFAULT) [address] [address]Fpnmdrbm Grans %0.4 %[facility] HospitalComment on above:Performed By: #### [id number] #### [facility] (DEFAULT) [address] [place] [address]Sfpyeomq Grans Absolute<Normal<=0.07[facility] HospitalComment on above:Performed By: #### [id number] #### [facility] (DEFAULT) [address] [place] [address]Cesojtnryov (Bld) [#/Vol]1.70 10*3/uLNormal0.83-3.57[facility] HospitalComment on above:Performed By: #### [id number] #### [facility] (DEFAULT) [address] [place] [address]Tpgskrcmxwo/100 WBC (Bld)33.5 %NormalMiami Valley HospitalComment on above:Performed By: #### [id number] #### [facility] (DEFAULT) [address] [place] [address]DAO (RBC) [Entitic vol]90.0 vZFkakvj72.0-94.5[facility] HospitalComment on above:Performed By: #### [id number] #### [facility] (DEFAULT) [address] [place] [address]Lslj Cell Hgb31.0 mlJykzps69.1-33.3[facility] HospitalComment on above:Performed By: #### [id number] #### [facility] (DEFAULT) [address] [place] [address]Qhud Cell Hgb Conc34.5 g/hNUgkutj41.9-36.5[facility] HospitalComment on above:Performed By: #### [id number] #### [facility] (DEFAULT) [address] [place] [address]Qvulxbenp (Bld) [#/Vol]0.49 10*3/uLNormal0.24-0.93[facility] HospitalComment on above:Performed By: #### [id number] #### [facility] (DEFAULT) [address] [place] [address]Vxnazzyie/100 WBC (Bld)9.6 %NormalMiami Valley HospitalComment on above:Performed By: #### [id number] #### [facility] (DEFAULT) [address] [place] [address]Szhyxiqve RBC0.0 /100 WBCNormal<=0.2[facility] HospitalComment on above:Performed By: #### [id number] #### [facility] (DEFAULT) [address] [place] [address]Vrsnnxju mean volume (Bld) [Entitic vol]9.8 fLNormal8.7-12.3 [facility] HospitalComment on above:Performed By: #### [id number] #### [facility] (DEFAULT) [address] [place] [address]Splzvabyd (Bld) [#/Vol]241 10*3/hNXqsono077-747KlrfMiami Valley HospitalComment on above:Performed By: #### [id number] #### [facility] (DEFAULT) [address] [place] [address]BDF (Bld) [#/Vol]4.29 10*6/uLLow4.38-5.83[facility] HospitalComment on above:Performed By: #### [id number] #### [facility] (DEFAULT) [address] [place] [address]NTL Dhzhebievdwj92.0 %Zcdzgb21.9-14.3[facility] HospitalComment on above:Performed By: #### [id number] #### [facility] (DEFAULT) [address] [place] [address]Udrq + Bands Auto53.1 %NormalMiami Valley HospitalComment on above:Performed By: #### [id number] #### [facility] (DEFAULT) [address] [place] [address]Whnd + Bands,Absolute Auto2.70 K/uLNormal1.57-6.19[facility] HospitalComment on above:Performed By: #### [id number] #### [facility] (DEFAULT) [address] [place], [place] [address]EXY (Bld) [#/Vol]5.08 10*3/uLNormal3.73-10.10[facility] HospitalComment on above:Performed By: #### [id number] #### [facility] (DEFAULT) [address] [place], [place] [address]RRNR 6 (LYTES, BUN CREA)on 01-28-9620Wgywm gap [Moles/Vol]9 mmol/L7 - 17 mmol/[facility] ToledoChloride [Moles/Vol]105 mmol/L98 - 108 mmol/[facility] ToledoCO2 [Moles/Vol]30 mmol/L21 - 31 mmol/[facility] ToledoCreatinine [Mass/Vol]1.05 mg/dL0.70 - 1.30 mg/dLMercy Health Urbana HospitaleGFR, CKD-EPI, Male82- [facility] HospitalComment on above:Reported eGFR is based on the CKD-EPI 2020 equation using creatinine, age, and sex.Potassium [Moles/Vol]3.9 mmol/L3.5 - 5.0 mmol/[facility] Centerodium [Moles/Vol]140 mmol/L135 - 145 mmol/[facility] ToledoUrea nitrogen [Mass/Vol]19 mg/dL7 - 25 mg/dLMercy Health Urbana HospitalUrea nitrogen/Creatinine [Mass ratio]18 mg/mgMercy Health Urbana HospitalOSKettering Health HamiltonAnion gap [Moles/Vol]9 mmol/LNormal7-17[facility] HospitalComment on above:Performed By: #### [id number] #### [facility] (DEFAULT) [address] [place] [address]Eedpyssr [Moles/Vol]105 mmol/QTlsjcr31-769WoasMiami Valley HospitalComment on above:Performed By: #### CHM6 #### [facility] (DEFAULT) [address] [place], [place] [address]YO2 [Moles/Vol]30 mmol/MYbckit47-36TgqtMiami Valley HospitalComment on above:Performed By: #### CHM6 #### [facility] (DEFAULT) [address] [place] [address]Irrvqemyqa [Mass/Vol]1.05 mg/dLNormal0.70-1.30[facility] HospitalComment on above:Performed By: #### CHM6 #### [facility] (DEFAULT) [address] [place] [address]FLL/1.73 sq M.predicted among non-blacks MDRD (S/P/Bld) [Vol rate/Area]82 mL/min/{1.73_m2}Normal>=60[facility] HospitalComment on above:Result Comment: Reported eGFR is based on the CKD-EPI 2020 equation using creatinine, age, and sex.Performed By: #### [id number] #### [facility] (DEFAULT) [address] [place] [address]Hpesqtxro [Moles/Vol]3.9 mmol/LNormal3.5-5.0[facility] HospitalComment on above:Performed By: #### CHM6 #### [facility] (DEFAULT) [address] [place] [address]Scwfxf [Moles/Vol]140 mmol/KBxbudf895-276IjctMiami Valley HospitalComment on above:Performed By: #### CHM6 #### [facility] (DEFAULT) [address] [place] [address]Uxwb nitrogen [Mass/Vol]19 mg/dLNormal7-25[facility] HospitalComment on above:Performed By: #### CHM6 #### [facility] (DEFAULT) [address] [place] [address]Juee nitrogen/Creatinine [Mass ratio]18 mg/mgNormalOhiSt. Rita's HospitalComment on above:Performed By: #### CHM6 #### [facility] (DEFAULT) [address] [place] [address]VBDNK/GFRon 04-96-6672Ywhecqxasq [Mass/Vol]1.05 mg/dL0.70 - 1.30 mg/dLMercy Health Urbana HospitalGFR/1.73 sq M.predicted CKD-EPI (S/P/Bld) [Vol rate/Area]82- PINShelby Memorial HospitalComment on above:Reported eGFR is based on the CKD-EPI 2020 equation using creatinine, age, and sex. Interpretation and review of laboratory resultsNoMount St. Mary Hospital Test performed at address of the patient encounter.[facility]rbana HospitalOSKettering Health HamiltonCT CHEST WITH CONTRASTon [id number] CHEST WITH CONTRAST EXAM: CT CHEST WITH CONTRAST COMPARISON: None CLINICAL INDICATIONS: oral cancer; assess for staging TECHNIQUE: IV contrast enhanced axial CT images of the chest 5 mm with 1 mm contiguous high-resolution, coronal MIP and sagittal MPR series. FINDINGS: Calcified left upper lobe nodule. There are no suspect pulmonary nodules. Minimal bilateral lower lobe posterior dependent atelectasis without pleural effusions. There are no pathologically enlarged mediastinal, hilar, axillary or definite supraclavicular lymph nodes. Pulmonary arteries and thoracic aorta appear unremarkable. The heart is normal in size without pericardial effusion. Visualized upper abdomen demonstrates cholelithiasis. No adrenal nodules. Presumed simple appearing 2.8 cm left anterior hepatic cyst. Scattered colonic diverticulosis. No suspect osseous lesions. Please see the accompanying report from the neck CT exams, which was obtained on the same day. IMPRESSION: No imaging evidence for intrathoracic metastatic disease. Mario Huitron M.D. This report has been electronically signed and verified by the Radiologist whose name is printed above. This report contains privileged and confidential information and is intended solely for the use of the individual or entity to which it is addressed. If you are not the intended recipient of this report, you are hereby notified that any copying, distribution, dissemination or action taken in relation to the contents of this report is strictly prohibited and may be unlawful. If you have received this report in error, please notify the sender immediately at [phone] and permanently delete the original report and destroy any copies or printouts.[facility] HospitalCT Chest W contrast Hossein [id number]: No imaging evidence for intrathoracic metastatic disease. Mario Huitron M.D. This report has been electronically signed and verified by the Radiologist whose name is printed above. This report contains privileged and confidential information and is intended solely for the use of the individual or entity to which it is addressed. If you are not the intended recipient of this report, you are hereby notified that any copying, distribution, dissemination or action taken in relation to the contents of this report is strictly prohibited and may be unlawful. If you have received this report in error, please notify the sender immediately at [phone] and permanently delete the original report and destroy any copies or printouts. RADIOLOGYEXAM: CT CHEST WITH CONTRAST COMPARISON: None CLINICAL INDICATIONS: oral cancer; assess for staging TECHNIQUE: IV contrast enhanced axial CT images of the chest 5 mm with 1 mm contiguous high-resolution, coronal MIP and sagittal MPR series. FINDINGS: Calcified left upper lobe nodule. There are no suspect pulmonary nodules. Minimal bilateral lower lobe posterior dependent atelectasis without pleural effusions. There are no pathologically enlarged mediastinal, hilar, axillary or definite supraclavicular lymph nodes. Pulmonary arteries and thoracic aorta appear unremarkable. The heart is normal in size without pericardial effusion. Visualized upper abdomen demonstrates cholelithiasis. No adrenal nodules. Presumed simple appearing 2.8 cm left anterior hepatic cyst. Scattered colonic diverticulosis. No suspect osseous lesions. Please see the accompanying report from the neck CT exams, which was obtained on the same day. Mario Pierre MD - 03/18/2025 EXAM: CT CHEST WITH CONTRAST COMPARISON: None CLINICAL INDICATIONS: oral cancer; assess for staging TECHNIQUE: IV contrast enhanced axial CT images of the chest 5 mm with 1 mm contiguous high-resolution, coronal MIP and sagittal MPR series. FINDINGS: Calcified left upper lobe nodule. There are no suspect pulmonary nodules. Minimal bilateral lower lobe posterior dependent atelectasis without pleural effusions. There are no pathologically enlarged mediastinal, hilar, axillary or definite supraclavicular lymph nodes. Pulmonary arteries and thoracic aorta appear unremarkable. The heart is normal in size without pericardial effusion. Visualized upper abdomen demonstrates cholelithiasis. No adrenal nodules. Presumed simple appearing 2.8 cm left anterior hepatic cyst. Scattered colonic diverticulosis. No suspect osseous lesions. Please see the accompanying report from the neck CT exams, which was obtained on the same day. IMPRESSION IMPRESSION: No imaging evidence for intrathoracic metastatic disease. Mario Huitron M.D. This report has been electronically signed and verified by the Radiologist whose name is printed above. This report contains privileged and confidential information and is intended solely for the use of the individual or entity to which it is addressed. If you are not the intended recipient of this report, you are hereby notified that any copying, distribution, dissemination or action taken in relation to the contents of this report is strictly prohibited and may be unlawful. If you have received this report in error, please notify the sender immediately at [phone] and permanently delete the original report and destroy any copies or printouts. [facility] HamiltonRadiology Study observation (narrative)[facility] HamiltonCT Chest W contrast IVOrdered By: Mario Huitron on 85-03-3268CGNKettering Health HamiltonCT Neck W contrast Hossein 55-62-6549Qhtzyjtar Study observation (narrative)OSK[facility]tering Health HamiltonPR IMPRESSION&PREPARATION SURGICAL OBTURATOR PROSTHon 64-79-0133GbernMartina Mills DMD 03/28/2025 1:48 PM Date of service: 03/14/25 IMMEDIATE SURGICAL OBTURATOR PROSTHESIS CPT 11313 The immediate surgical obturator (ISO) prosthesis is prescribed for patients who have acquired defects of the maxilla or hard or soft palate that communicate with the nasal cavity, maxillary sinus or nasopharynx. Patients have disruption in speech and swallowing as fluids and/or food is forced into the nose/nasopharynx. Also the tongue cannot articulate against the palate. Speech sounds escape into the nasal cavity causing hypernasal speech. These patients require a special maxillofacial prosthesis called an obturator to restore the continuity of the maxilla/hard palate and separates the oral and nasal. This restores their speech and swallowing. This prosthesis is medically necessary and will be worn daily. Follow-up adjustments, relines, repairs and sometimes remakes of the prosthesis are required to assure adequate fit and function as oral tissues change with time. Smith Leroy presented today for CA: prep and impression for the immediate surgical obturator prosthesis. Irreversible hydrocolloid (alginate) in disposable trays were used for impressions. Impressions were poured in type III dental stone. Shade of teeth are B1 (Blueline, Ivoclar). The prosthesis will be made with retentive clasp on molars #2,15 and to premolars #4,13. Denture teeth #6-11 will be placed. The prosthesis will be delivered at time of cancer surgery on 03/25/25. It will require additional appointments for adjustments of the prosthesis. [facility] CenterXR tomography Mandible PanoramicOrdered By: Unassigned Pacs on 94-33-1896OABMercy Health Urbana Hospital Work Phone: XR tomography Mandible Panoramicon 42-30-9159Vuupshgku Study observation (narrative)[facility]ana HospitalXR Shoulder - left 2 Views on 79-37[place]20[place] [address] XRay Report Signed Patient: SMITH LEROY MR#: [id number] : 1965 Acct:[id number] Age/Sex: 59 / M ADM Date: 02/25/25 Loc: [facility] Attending Dr: DONOVAN OTERO Ordering Physician: DONOVAN OTERO Date of Service: 02/25/25 Procedure(s): XR shoulder LT min 2V Accession Number(s): [id number] cc: DONOVAN OTERO ; Panda Muhammad M.D. The [place] [id number] Patient Name: SMITH LEROY MRN: [id number] date: 1965 Sex: M Assigned Patient Location: [facility] Current Patient Location: Accession/Order Number: [id number] Exam Date: 02/25/2025 17:07 Report Date: 02/26/2025 09:30 At the request of: DONOVAN OTERO Procedure: XR shoulder LT min 2V LEFT [...] the acromioclavicular and to a lesser extent at the inferior glenohumeral joint. Subchondral cystic change and sclerosis are noted at the greater tuberosity. Subtle soft tissue calcification is visualized adjacent to the greater tuberosity , likely within the rotator cuff. There are no other significant soft tissue abnormalities. XR/XR shoulder LT min 2V IMPRESSION: DEGENERATIVE CHANGES AND SUSPECTED ROTATOR CUFF DISEASE Impression dictated by: Pilar Singh M.D. 02/26/2025 9:30 AM Dictation Location: [place] [address] Electronically authenticated by: [id number] Y Date: 02/26/2025 09:30 Dictated By: Pilar Singh M.D. Signed By: 02/26/25931 DD/ 9 TD/TT: Pest Control Worker Helper:TBHRadiology, Radiologist, - 02/26/2025 [place] [address] XRay Report Signed Patient: SMITH LEROY MR#: [id number] : 1965 Acct:[id number] Age/Sex: 59 / M ADM Date: 02/25/25 Loc: [facility] Attending Dr: DONOVAN OTERO Ordering Physician: DONOVAN OTERO Date of Service: 02/25/25 Procedure(s): XR shoulder LT min 2V Accession Number(s): [id number] cc: DONOVAN OTERO ; Panda Muhammad M.D. The [place] [address] Patient Name: SMITH LEROY MRN: [id number] date: 1965 Sex: M Assigned Patient Location: [facility] Current Patient Location: Accession/Order Number: [id number] Exam Date: 02/25/2025 17:07 Report Date: 02/26/2025 09:30 At the request of: DONOVAN OTERO Procedure: XR shoulder LT min 2V LEFT [...] the acromioclavicular and to a lesser extent at the inferior glenohumeral joint. Subchondral cystic change and sclerosis are noted at the greater tuberosity. Subtle soft tissue calcification is visualized adjacent to the greater tuberosity , likely within the rotator cuff. There are no other significant soft tissue abnormalities. XR/XR shoulder LT min 2V IMPRESSION: DEGENERATIVE CHANGES AND SUSPECTED ROTATOR CUFF DISEASE Impression dictated by: Pilar Singh M.D. 02/26/2025 9:30 AM Dictation Location: [place] [address] Electronically authenticated by: [id number] Y Date: 02/26/2025 09:30 Dictated By: Pilar Singh M.D. Signed By: 02/26/25931 DD/ 9 TD/TT: Pest Control Worker Helper: ANI HealthcareRadiology Study observation (narrative)[facility] HealthcareXR Shoulder - left 2 ViewsOrdered By: Radiologist Radiology on 96-14-8890QR[address] [employer] Work Phone: [facility] [phone] From: Maria Luisa De León LPN To: GSN - Clinical; Sent: 06/07/2024 12:54:28 EST Show up: 05/07/2034 07:00:00 EDT Subject: colonoscopy recall Due Date/Time: 06/06/2034 07:00:00 EST Reminder/Recall Patient due for screening colonoscopy 06/06/2034.[facility] CenterAmbulatory Visit Summaryon 21-17-3710Uhnuvjaosg Visit SummaryAmbulatory Visit Summary SMITH LEROY :1965 Visit Date:05/09/2024 Ambulatory Visit Instructions Your Diagnosis Positive fecal occult blood test Your Care Team Attending Physician - BRIAN BERNARDO, Faustino R Primary Care Physician - Panda Muhammad MD Referring Physician - Panda Muhammad MD This Is Your Medications List Contact prescribing physician if questions or concerns aspirin (aspirin 81 mg Oral EC Tab) multivitamin (Multi Vitamins oral tablet) omega-3 polyunsaturated fatty acids (Fairbury-3 Fish Oil) Procedures Performed Arthroplasty of right [...] or concerns Unchanged omega-3 polyunsaturated fatty acids (Fairbury-3 Fish Oil) 1,000 Milligram By Mouth Every dayContact prescribing physician if questions or concerns Allergies [...] you for choosing us for your care. [facility] Vital Signs Date TimeVital SignValuePerforming JlteuobifMzqmfbkn29-12-8492 11:29-0400Body mass index (BMI) [Ratio]32.78 kg/x8RdijcMartina Mills DMD Work Phone: [facility]10-16-2025 11:29-0400Body zyahdybswpo20.81 [degF]Martina Mills DMD Work Phone: [facility]10-16-2025 11:29-0400Body uiewxf836.8 kgMartina Mills DMD Work Phone: [facility]10-16-2025 11:29-0400 Diastolic blood wmzaqfvk24 mm[Hg]Martina Mills DMD Work Phone: [facility]10-16-2025 11:29-0400Heart rate77 /Francescaabby Mills DMD Work Phone: 1(556)[address] [place], [place] 2401710-16-2025 11:29-0400 Respiratory rate20 /Fuad Mills DMD Work Phone: 1(750)[address] [place], [place] 2401710-16-2025 11:299273PqV7% (BldA) [Mass fraction]98 %Martina Mills DMD Work Phone: 1(159)[address] [place], [place] 2401710-16-2025 11:290400Systolic blood czbbwwpo218 mm[Hg]Martina Mills DMD Work Phone: 1(152)[address] [place], [place] 2401710-16-2025 10:23-0400Body mass index (BMI) [Ratio]32.77 kg/x9OkdbpBrandin Rivera MD, PhD Work Phone: 1(956)[address] [place], [place] 2401710-16-2025 10:23-0400Body ziuygnjgyll57.81 [degF]Brandin Rivera MD, PhD Work Phone: 1(081)[address] [place], [place] 2401710-16-2025 10:23-0400Body .76 kgBrandin Rivera MD, PhD Work Phone: 1(376)[address] [place], [place] 2401710-16-2025 10:23-0400 Diastolic blood kiufzbka16 mm[Hg]Brandin Rivera MD, PhD Work Phone: 1(595)[address] [place], [place] 2401710-16-2025 10:23-0400Heart rate77 /Emma Rivera MD, PhD Work Phone: 1(728)[address] [place], [place] 2401710-16-2025 10:23-0400 Respiratory rate20 /Emma Rivera MD, PhD Work Phone: 1(606)[address] [place], [place] 2401710-16-2025 10:23-3661NgB0% (BldA) [Mass fraction]98 %Brandin Rivera MD, PhD Work Phone: 1(891)[address] [place], [place] 2401710-16-2025 10:23-0400Systolic blood ptimxljh366 mm[Hg]Bradnin Rivera MD, PhD Work Phone: 1(453)[address] [place], [place] 2401709-29-2025 09:26-0400Body mass index (BMI) [Ratio]32.79 kg/k4Gghet Gene DMD Work Phone: 1(347)[address] [place], [place] 2401709-29-2025 09:26-0400Body eokznhfajuz07.2 [degF]Martina Gene DMD Work Phone: 1(135)[address] [place], [place] 2401709-29-2025 09:26-0400Body hbakez640.85 kgSaleann LemusGene DMD Work Phone: 1(577)[address] [place], [place] 2401709-29-2025 09:26-0400 Diastolic blood cyhnyhwy88 mm[Hg]Martina Mills DMD Work Phone: 1(944)[address] [place], [place] 2401709-29-2025 09:26-0400Heart rate74 /Fuad Gene DMD Work Phone: 1(046)[address] [place], [place] 2401709-29-2025 09:26-0400 Respiratory rate16 /minSelizabethemily Mills DMD Work Phone: 1(739)[address] [place], [place] 2401709-29-2025 09:26-1226JrW7% (BldA) [Mass fraction]100 %Martinakeith Mills DMD Work Phone: 1(670)[address] [place], [place] 2401709-29-2025 09:26-0400Systolic blood jwsbnlpu187 mm[Hg]Martina Gene DMD Work Phone: 1(498)[facility]74[facility]09-22-2025 14:00-0400 Diastolic blood peqjhoil96 mm[Hg]Brandin Rivera MD, PhD Work Phone: 1(613)[address] [place], [place] 2401709-22-2025 14:00-0400Heart rate85 /Emma Rivera MD, PhD Work Phone: 1(570)[address] [place], [place] 2401709-22-2025 14:00-0400 Respiratory rate14 /minBrandin Rivera MD, PhD Work Phone: 1(623)[address] [place], [place] 2401709-22-2025 14:00-0607MjK7% (BldA) [Mass fraction]93 %Brandin Rivera MD, PhD Work Phone: 1(704)[address] [place], [place] 2401709-22-2025 14:00-0400Systolic blood qugrgekf802 mm[Hg]Brandin Rivera MD, PhD Work Phone: 1(864)[address] [place], [place] 2401709-22-2025 13:15-0400Body msoqaznwoyr70.29 [degF]Brandin Rivera MD, PhD Work Phone: 1(923)[address] [place], [place] 2401709-22-2025 05:37-0400Body ppkloq684 cmBrandin Rivera MD, PhD Work Phone: 1(109)[address] [place], [place] 2401709-22-2025 05:37-0400Body mass index (BMI) [Ratio]33.28 kg/h0NefboBrandin Rivera MD, PhD Work Phone: 1(919)[address] [place], [place] 2401709-22-2025 05:37-0400Body .57 kgBrandin Rivera MD, PhD Work Phone: 1(368)[address] [place], [place] 2401709-15-2025 12:34-0400Body tbhacx979 cmAvinicio Turner WOOD TYPE FINISHER-REFINERY OPERATOR COKING Work Phone: 1(646)[address] [place], [place] 0647209-15-2025 12:34-0400Body mass index (BMI) [Ratio]33.38 kg/p9BikgrvDeborah Turner WOOD TYPE FINISHER-REFINERY OPERATOR COKING Work Phone: 1(287)[address] [place], [place] 0647209-15-2025 12:34-0400Body idpvhvucenh79.4 [degF]Deborah Turner WOOD TYPE FINISHER-REFINERY OPERATOR COKING Work Phone: 1(586)[address] [place], [place] 0647209-15-2025 12:34-0400Body taxzpc772.94 kgDeborah Turner WOOD TYPE FINISHER-REFINERY OPERATOR COKING Work Phone: 1(636)[address] [place], [place] 0647209-15-2025 12:34-0400 Diastolic blood pxapjqut11 mm[Hg]Deborah Pérezer WOOD TYPE FINISHER-REFINERY OPERATOR COKING Work Phone: 1(555)[address] [place], [place] 0647209-15-2025 12:34-0400Heart rate85 /minAshleigh ann Pérezer WOOD TYPE FINISHER-REFINERY OPERATOR COKING Work Phone: 1(751)[address] [place], [place] 0647209-15-2025 12:34-0400 Respiratory rate18 /minAshleigh ann Pérezer WOOD TYPE FINISHER-REFINERY OPERATOR COKING Work Phone: 1(461)[address] [place], [place] 0647209-15-2025 12:34-3220FzQ9% (BldA) [Mass fraction]96 %Deborah Rumer WOOD TYPE FINISHER-REFINERY OPERATOR COKING Work Phone: 1(770)[address] [place], [place] 0647209-15-2025 12:34-0400Systolic blood wimzjtfl796 mm[Hg]Deborah Pérezer WOOD TYPE FINISHER-REFINERY OPERATOR COKING Work Phone: 1(231)[address] [place], [place] 0647209-15-2025 10:12-0400 Diastolic blood mm[Hg]Brandin Rivera MD, PhD Work Phone: 1(779)[address] [place], [place] 2401709-15-2025 10:12-0400Systolic blood abfbrubn827 mm[Hg]Brandin Rivera MD, PhD Work Phone: 1(289)[address] [place], [place] 2401709-11-2025 11:08-0400Body mass index (BMI) [Ratio]32.88 kg/t0RsqnvMartina Mills DMD Work Phone: 1(345)[address] [place], [place] 2401709-11-2025 11:08-0400Body fyivovympis15.4 [degF]Martina Mills DMD Work Phone: 1(893)[address] [place], [place] 2401709-11-2025 11:08-0400Body isxzpb688.17 kgSaleann Mills DMD Work Phone: 1(538)[address] [place], [place] 2401709-11-2025 11:08-0400 Diastolic blood tymxgvfv47 mm[Hg]Martina Mills DMD Work Phone: [facility]09-11-2025 11:08-0400Heart rate81 /Fuad Mills DMD Work Phone: 1(417)[facility]74[facility]09-11-2025 11:08-0400 Respiratory rate16 /Fuad Mills DMD Work Phone: 1(659)[address] [place], [place] 2401709-11-2025 11:08-3191MmG3% (BldA) [Mass fraction]98 %Martina Mills DMD Work Phone: 1(236)[facility]74[facility]09-11-2025 11:08-0400Systolic blood cdotbjqb200 mm[Hg]Martina Mills DMD Work Phone: 1(142)[facility]74[facility]09-11-2025 08:57-0400Body ezwfoa697 cmBrandin Rivera MD, PhD Work Phone: 1(117)[address] [place], [place] 2401709-11-2025 08:57-0400Body mass index (BMI) [Ratio]32.88 kg/o5PwricBrandin Rivera MD, PhD Work Phone: 1(388)[address] [place], [place] 2401709-11-2025 08:57-0400Body mqunbbaahep44.2 [degF]Brandin Rivera MD, PhD Work Phone: 1(524)[address] [place], [place] 2401709-11-2025 08:57-0400Body dbqiwm707.17 kgBrandin Rivera MD, PhD Work Phone: 1(632)[address] [place], [place] 2401709-11-2025 08:57-0400 Diastolic blood ztbbmhau37 mm[Hg]Brandin Rivera MD, PhD Work Phone: 1(447)[address] [place], [place] 2401709-11-2025 08:57-0400Heart rate75 /Emma Rivera MD, PhD Work Phone: 1(278)[facility]74[facility]09-11-2025 08:57-0400 Respiratory rate20 /Emma Rivera MD, PhD Work Phone: 1(245)[address] [place] [address] [facility]09-11-2025 08:57-3897ZgK9% (BldA) [Mass fraction]98 %Brandin Rivera MD, PhD Work Phone: [facility]09-11-2025 08:57-0400Systolic blood zdpyanzv822 mm[Hg]Brandin Rivera MD, PhD Work Phone: [facility]11-06-2024 14:23-0500Blood Pressure LocationMichael NILL [phone]-BzxvxDoctors Hospital11-06-2024 14:23-0500Diastolic blood sqylyupb06 mm[Hg]Faustino NILL [phone]-AibbdDoctors Hospital11-06-2024 14:23-0500Heart rate72 /minMichael NILL [phone]-NdvsrDoctors Hospital11-06-2024 14:23-0500Respiratory rate16 /minMichael NILL [phone]-TtkfvDoctors Hospital11-06-2024 14:23-0500Systolic blood adrmnvuv917 mm[Hg]Faustino NILL [phone]-GwaccDoctors Hospital Encounters Encounter DateEncounter TypeCare ProviderFacilityStart: 04-18-2025 End: 45-90-7220Raxzinc encounter procedureSabby Mills DMD Work Phone: Department of Maxillofacial ProsthodonticsComment on above: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); S/P biopsy; Partially edentulous maxilla, unspecified edentulism classStart: 04-18-2025 End: 73-37-8080Gomgvg outpatient visit 15 minutesBrandin Rivera MD, PhD Work Phone: Department of OtolaryngologyComment on above:Primary oral squamous cell carcinoma (Primary Dx)Start: 98-46-1308ftihgatlbdIMZMBOF Ca HOYFacility:JAMESStart: 04-13-2025 End: 60-13-2287UoitiyUfxkceh W Bauer MD Work Phone: [facility] Neurology 210Comment on above:Rotator cuff syndrome of left shoulder; Trigeminal neuralgiaStart: 04-01-2025 End: 39-47-9118Nyuhddt encounter procedureSabby Mills DMD Work Phone: Department of Maxillofacial ProsthodonticsComment on above: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); S/P biopsy; Partially edentulous maxilla, unspecified edentulism classStart: 04-01-2025 ambulatoryDOUGELDON MUHAMMADFacility:BRANDINStart: 03-25-2025 End: 04-28-5052uwkxugxxyiZEFPIHC M HOYFacility:BRANDINStart: 03-25-2025 End: 08-84-7378Knafhhhnhm and management of inpatientJajennifer Rivera MD, PhD Work Phone: [facility] PERIOPComment on above:Primary oral squamous cell carcinomaStart: 34-22-1847lljxqklrqxNWVKP D SKORACKIFacility:BRANDINStart: 66-44-2023ssbqeaqltqYZYKR D SKORACKIFacility:BRANDINStart: 03-18-2025 End: 00-43-5757Exzeti outpatient new 20 minutesAshleigh ann Turner WOOD TYPE FINISHER-REFINERY OPERATOR COKING Work Phone: [phone]-Qcqddqmia Evaluation and Assessment [facility] Outpatient CareComment on above:Preop exam for internal medicine (Primary Dx); Primary oral squamous cell carcinomaStart: 03-18-2025 End: 05-16-5520Iurzyho encounter statusDeborah Turner WOOD TYPE FINISHER-REFINERY OPERATOR COKING Work Phone: [facility] Hospital[facility]art: 25-16-4764zfnwwiqypq HINA D SKORACKIFacility:BRANDINStart: 20-36-1636Fvbecgxel for other preprocedural examinationDEBORAH Almendarezcility:BRANDINStart: 72-60-5049rcaqvrkqsfHUSDFQN M HOY Facility:JAMESStart: 03-18-2025 End: 97-52-1722Wqupfmpsnn hospital visit by Ivett Rivera MD, PhD Work Phone: Department of RadiologyComment on above:ArrivedStart: 03-14-2025 End: 07-26-9452Voabqd consultation new/estab patient 61 Fuad Mills DMD Work Phone: Department of Maxillofacial ProsthodonticsComment on above: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); S/P biopsyStart: 58-01-2415pmcveqijukJVARNAD M HOYFacility:JAMESStart: 03-14-2025 End: 82-63-6524Udbajd outpatient new 60 minutesBrandin Rivera MD, PhD Work Phone: Department of OtolaryngologyComment on above:Primary oral squamous cell carcinoma (Primary Dx)Start: 53-34-4017vmrqvcqlxySJOGMDT M HOYFacility:JAMESStart: 02-27-2025 End: 96-31-6922Oqgwqh flowsheetDavid B Rakesh PT Work Phone: [facility] [place] [facility] TherapyStart: 02-27-2025 End: 79-03-1910Wtglho flowsheetDavid B Rakesh PT Work Phone: [facility] [place] [facility] TherapyStart: 02-27-2025 End: 02-06-8396eepbzzazrxPlowu B Rakesh PT Work Phone: [facility] [place] [facility] TherapyComment on above:Rotator cuff syndrome of left shoulder (Primary Dx)Start: 02-26-2025 End: 18-49-7480Hudvepjve Result EncounterDonovan Otero MD Work Phone: noms External Department UnsolicitedStart: 02-26-2025 End: 75-25-2659Onnbpkdpu Result EncounterDonovan Otero MD Work Phone: noms External Department UnsolicitedStart: 02-19-2025 End: 83-81-6031Jmtbwy flowsheetDavid B Rakesh PT Work Phone: [facility] TherapyStart: 02-19-2025 End: 46-13-3750Icezii flowsheetDavid B Rakesh PT Work Phone: [facility] TherapyStart: 02-19-2025 End: 21-05-2069ufhjshjicpQwzkf B Rakesh PT Work Phone: n[facility] TherapyComment on above:Rotator cuff syndrome of left shoulderStart: 06-25-2024 End: 45-13-9813OupqegSdqlxmh W Bauer MD Work Phone: [facility] NEURO 210Comment on above:Acute pain of left shoulder (Primary Dx); Cervical paraspinal muscle spasmStart: 06-06-2024 End: 05-34-5264uwcvlckrxoPpxyemn R NILLFacility:CD:[id number]: 05-09-2024 End: 48-48-9928itqewbkeioEbwignm HoyFacility: BellevueStart: 05-09-2024 End: 60-62-5464Boykgnb encounter procedureMichael R NILL [phone]-Vsubc [facility] [place] Start: 70-84-2614wjwegmjopkPhlopij HoyFacility: BellevueStart: 11-95-2891kblyjwoieoAjsoixp HoyFacility: LelakStart: 07-21-2018 End: 87-63-6127Wgcgacg encounter procedureJARED JOHNSONFacility:B5Bwpyb: 06-02-2018 End: 40-75-7474Bpxlkwe encounter procedurePRFacility:[facility] Procedures DateProcedureProcedure DetailPerforming ClinicianStart: 18-45-1289EGDRGOHABM CARDIAC MONITORING STRIPOther OtherStart: 42-23-8851Iijjkcpk Ryan Rivera MD, PhD Work Phone: Start: 11-97-8250LJTSQ TYPE RECONFIRMATIONSylwia Albarran DO Work Phone: Start: 37-11-8799IDWAOAFCFV CARDIAC MONITORING STRIP Other OtherStart: 48-74-0530Kabqhjct screenDOUGLAS HOYComment on above:Performed By: #### XM #### [facility] ([facility]) [address] [place] [address]Zahnc: 03-01-9711Mmaoc count Elisa Witt MD Work Phone: Start: 80-43-6263Huaes typing serologic Desiree Witt MD Work Phone: Start: 66-70-1544GYX AND ELECTRONIC DIFFAshley R Rumer WOOD TYPE FINISHER-REFINERY OPERATOR COKING Work Phone: Start: 27-67-2804Mfhyluyj blood count with white cell differential, automatedAshley R Rumer WOOD TYPE FINISHER-REFINERY OPERATOR COKING Work Phone: Start: 83-28-8834Rkbavpklrb bloodAshley R Rumer WOOD TYPE FINISHER-REFINERY OPERATOR COKING Work Phone: Start: 28-37-8860Ve soft tissue neck w/contrast materialLaura D Skoracki PA-C Work Phone: Start: 98-88-2833Li thorax w/contrast materialLaura D Skoracki PA-C Work Phone: Start: 41-55-5834Cbdrteqimh Kavon Rivera MD, PhD Work Phone: Start: 14-78-4914CleobysrpwvsvfQjjxq D Valentin DMD Work Phone: Start: 54-60-8389Owrfwumvyr&preparation surg obturator prosthesSabby Mills DMD Work Phone: Start: 52-60-3593Qfeiv shoulder complete minimum 2 viewsDonovan Otero MD Work Phone: Start: 51-58-9805QGAVTH UPPER LEG SURGERYVALERIE SAWANTStart: 30-04-8589IPOHYE OF THIGH MUSCLENABIL EBRAHEIMLeft quadriceps injuryMichael NILL Repair of joint of right hipMichael NILL Repair of right inguinal herniaMichael NILL Plan of Treatment DateCare ActivityDetailAuthorStart: 08-29-2025 End: 93-60-7677Jtixuwt encounter filqminao96/26/2026 11:15 AM EST Office Visit Department of Otolaryngology [address] [place] [address] Brandin Rivera MD, PhD [address] [place] [address] Department of Otolaryngology Start: 05-15-2025 End: 01-33-1875Tweotjw encounter xmqytpnta68/12/2025 12:00 PM EST Office Visit Department of Maxillofacial Prosthodontics [address] [place] [address] Martina Mills, DMD [address] [place] [address] Department of Maxillofacial ProsthodonticsStart: 04-18-2025 End: 78-05-4682Vjoksbj encounter iqcdenkes01/16/2025 10:30 AM EDT Office Visit Department of Otolaryngology [address] [place] [address] Brandin Rivera MD, PhD [address] [place] [address] Department of Otolaryngology Start: 04-16-2025 End: 39-26-6777Zsjuhdp encounter yfnbpukts82/14/2025 9:00 AM EDT Office Visit Department of Maxillofacial Prosthodontics [address] [place] [address] Martina Mills, DMD [address] [place] [address] Department of Maxillofacial ProsthodonticsStart: 04-01-2025 End: 01-43-5831Qnazuxt encounter qphmignzp54/29/2025 9:00 AM EDT Office Visit Department of Maxillofacial Prosthodontics [address] [place] [address] Martina Mills, DMD [address] [place] [address] Department of Maxillofacial ProsthodonticsStart: 03-25-2025 End: 45-15-0304Mnnvstadecd bone muscle &/fascia 20 sq cm/<DEBRIDEMENT BONE Primary oral squamous cell carcinoma 03/25/2025 7:15 [facility] Start: 03-25-2025 End: 65-52-7107Odauluhbvx and management of inpatientCCCT PERIOPComment on above:Primary oral squamous cell carcinomaEXCISION LESION MOUTHStart: 03-25-2025 End: 09-47-6773Mff les mucosa & sbmcsl vestibule mouth w/o rprEXCISION LESION MOUTH Primary oral squamous cell carcinoma 03/25/2025 7:15 AM [facility]Start: 03-25-2025 End: 30-56-1625Zih lesion palate uvula w/smpl prim closureEXCISION LESION PALATE UVULA Primary oral squamous cell carcinoma 03/25/2025 7:15 AM [facility]BY[facility] ORStart: 03-25-2025 End: 99-42-3146Wfagrnybgf&preparation surg obturator prosthes IMPRESSION/FABRICATION PROSTHESIS OBTURATOR Primary oral squamous cell carcinoma 03/25/2025 7:15 [facility] ORStart: 03-25-2025 End: 10-25-8242Fmhppcxwsvdq w/o orbital exenterationMAXILLECTOMY W/O ORBITAL EXENTERATION Primary oral squamous cell carcinoma 03/25/2025 7:15 AM EDTOPRESBY[facility] MA[facility] ORStart: 03-25-2025 End: 98-14-1065Kpiqopsz procedure dentoalveolar structuresEXTRACTION TOOTH Primary oral squamous cell carcinoma 03/25/2025 7:15 AM EDTOS[facility] OR Start: 03-20-2025 End: 55-79-9519Bskbeyqart qstxfsowxstg37/17/2025 2:00 PM EDT Pre-Operative Nurse Assessment [facility] [address] [place] [address] Brandin Rivera MD, PhD [address] [place] [address] [facility]: 03-14-2025 End: 86-99-9886AT Chest W contrast IVCT CHEST WITH CONTRAST Imaging Routine Primary oral squamous cell carcinoma Expected: 03/14/2025, Expires: 03/14/2026 [facility] HospitalComment on above:Expected: 03/14/2025, Expires: 03/14/2026Start: 03-14-2025 End: 76-67-5195NC Neck W contrast IVCT NECK WITH CONTRAST Imaging Routine Primary oral squamous cell carcinoma Expected: 03/14/2025, Expires: 03/14/2026 [facility] HospitalComment on above:Expected: 03/14/2025, Expires: 03/14/2026Start: 2025 End: 12-32-7063grblwlkmdg95/03/2025 9:15 AM EDT Treatment [facility] [address] [place] [phone] Shayy Cameron, PT [address] [place] [address] [facility] Physical TherapyStart: 97-24-4836SMGUB-19 VACCINE ( season) COVID-19 VACCINE ( season)[facility]: 03-04-2025 Influenza vaccinationInfluenza Vaccine (#1)[facility]OMSalem [facility] District HospitalStart: 02-27-2025 End: 61-02-8660wlpywfocwvJPJJ [place] Physical TherapyComment on above:Rotator cuff syndrome of left shoulder (Primary Dx)Start: 02-19-2025 End: 26-02-0213gvatjiidgl57/19/2025 9:00 AM EDT Evaluation [facility] [address] [place] [phone] Shayy Cameron, PT [address] [place] [phone] Rotator cuff syndrome of left shoulderNOHospital for Special Care Physical TherapyComment on above: Rotator cuff syndrome of left shoulderStart: 06-25-2024 End: 10-27-0314IU Cervical spine 4 or 5 ViewsXR cervical spine complete 4 to 5 views Imaging Routine Cervical paraspinal muscle spasm Expected: 06/25/2024, Expires: 06/25/2025[facility] CenterComment on above:Expected: 06/25/2024, Expires: 06/25/2025Start: 06-25-2024 End: 67-54-9677QT Shoulder - left 2 ViewsXR shoulder 2+ views left Imaging Routine Acute pain of left shoulder Expected: 06/25/2024, Expires: 06/25/2025 [facility] Work Phone: Comment on above:Expected: 06/25/2024, Expires: 06/25/2025Start: 60-17-7645Okwceujh specific antigen measurementPROSTATE CANCER SCREENING DISCUSSIONOSMercy Health Urbana Hospitaltart: 35-29-7471Dlmfqimqfkue vaccinationPNEUMOCOCCAL VACCINE SERIES (1 of 1 - PCV)[facility] Start: 47-89-1023Jgbymp vaccine hzv live for subcutaneous useZOSTER (SHINGLES) VACCINE (1 of 2)[facility]: 36-56-3009Jhzgdyigw for malignant neoplasm of colonCOLORECTAL CANCER SCREENING DISCUSSIONOSMercy Health Urbana Hospitaltart: 71-14-4565Mkroq panelLIPID SCREENINGOSMercy Health Urbana Hospitaltart: 49-96-6748Hadbwjunx B vaccinationHEP B VACCINE (1 of 3 - 19+ 3-dose series)[facility]: 39-40-0091Mhczn diphtheria, tetanus and acellular pertussis (DTaP) vaccinationTDAP (ADULT)[facility] Start: 33-60-0343NGY screeningHIV SCREENING DISCUSSIONMercy Health Urbana Hospital Start: 77-55-4834Chukhjmcy C screeningHEPATITIS C VIRUS SCREENINGMarietta Osteopathic Clinictart: 67-63-3469Prdlfcteu for malignant neoplasm of colonNOMS HealthcareStart: 94-17-8076Wxmxktf vaccinationTETANUSMercy Health Urbana HospitalCT Chest W contrast IVCT CHEST WITH CONTRAST Imaging Routine Primary oral squamous cell carcinoma 03/18/2025 10:26 AM [facility] NECK WITH CONTRAST Imaging Routine Primary oral squamous cell carcinoma 03/18/2025 10:26 AM [facility] CenterEcg routine ecg w/least 12 lds w/i&rPR ECG ROUTINE ECG W/LEAST 12 LDS W/I&R CA - OFFICE PERFORMED Routine Preop exam for internal medicine Primary oral squamous cell carcinoma Ordered: 03/18/2025[facility] HospitalComment on above:Ordered: 03/18/2025SURG PATH REQUESTOSKettering Health HamiltonComment on above:Release Upon Ordering for 1 Occurrences starting 03/25/2025, 1 completed Immunizations Immunization DateImmunizationNotesCare CxtozybpUrhxrkkh62-74-4213THTA-LqH-2 (COVID-19) mRNA-1273 vaccineMichael NILL [phone]-GinhwShelby Memorial Hospital Comment on above:Result Comment: 2024-04-16: EHL3840-92-5138WGSS-ZyR-9 (COVID- 19) Ad26 vaccine, recombinantMichael NILL [phone]-AjkraMercy Health West Hospital [facility] Comment on above:Result Comment: 2024-04-16: --[employer] POPULATION/OCCUPATION--93-94-6564jamrzhxhh virus vaccine, unspecified formulationDavid Rakesh PT Work Phone: noMI Healthcare Payers DatePayer CategoryPayerPolicy [id number] Health InsuranceMEDICAL MUTUAL [id number] Care (unspecified)MMO [id number] [id number] 2..1.852637.3.57[id number] 2..1.299764.3.57[id number] 2..1.958231.3.57[id number] 2..1.723050.3.57[id number] 2..1.927120.3.57[id number] 2..1.838807.3.57[id number] 2.16.840.1.093182.3.57[id number] 2.16.840.1.513292.3.57[id number] 2.16.840.1.969507.3.57[id number] 2.16.840.1.855190.3.57[id number] 2.16.840.1.032212.3.57[id number] 2.16.840.1.286178.3.57[id number] 2.16840.1.837024.3.57[id number] 2.16.840.1.008124.3.57[id number] 2.16.840.1.007142.3.57[id number] 2.16840.1.307270.3.57[id number] 2.840.1.526450.3.57[id number] 2.16840.1.397061.3.57[id number] 2.840.1.349429.3.57[id number] Social History DateTypeDetailFacilityStart: 05-09-2024 End: 42-11-3112Gjhzbdp smoking statusNever smoked tobacco (finding)[facility] HospitalTobaonecore [facility] [place] smoking statusNeverFishQuinlan Eye Surgery & Laser CenterevueStart: 03-14-2025 End: 61-56-0767Jpy Assigned At BirthMalGlenbeigh HospitalTobacco smoking status NHISTobacco smoking consumption unknownNOMI HealthcareStart: 27-47-3887Glz assigned at birthNot on fileMOAB REGIONAL HOSPITAL HealthcareStart: 03-14-2025 Tobacco use and exposureSmokeless tobacco non-userOSU [facility] Start: 03-14-2025 End: 35-41-1383Hhkqrmlic beverage intakeCurrent drinker of alcohol (finding)OSMercy Health Urbana Hospitaltart: 03-14-2025 End: 38-47-2968Vlaehqoyo beverage intakeOSU Newark Hospitaltart: 70-34-7733ZgnHklr (finding)[facility] Medical Equipment Procedure CodeEquipment CodeEquipment Original TextEquipment IdentifierDates Screw Bone 15mm 2mm Concave Mandibular Titanium Threadlock - [id number]: 03-25-2025 Functional Status QfcsTzidsqgrxwOjvgdkHibzitcf68-60-4211Yhwyhkjqcc StatusN/AFMercy Health St. [facility] Clinical Notes 05-09-2024 to 04-18-2025 Note Date & EmsjSllyOobhpcxv36-35-3222 History of Present illness Narrative* SHAKA Fraga - 04/18/2025 12:00 PM EDT Patient reports the following: Falls-no Pain-no Pt reports Pharmacy, medications, and allergies verified. Pt in company with - Nicole All data collected, documented, and reported to Dr. Mills. EMPERATRIZ Moran II * Martina Mills DMD - 04/18/2025 12:00 PM EDT Images from the original note were not included. MAXILLOFACIAL PROSTHODONTICS CLINIC Smith Leroy is 60 y.o. male and is a new patient of [facility]: [facility]acial Pro[facility]odontics Clinic. He was referred by Theron Cooney DDS (OMFS in private practice in [place], [place]). The [facility] attending surgeon is Brandin Rivera MD PhD. She was referred by Brandin Rivera MD, PhD for Dental Prosthetic Services: Surgical Obturator. She has been diagnosed with SCC of maxillary gingivas/p biopsy of the maxillary gingiva between #8-[address] Cooney on 02/22/25. Path by [facility] Pathology (Roman Peña MD) came back as: Invasive SCC, moderately differentiated. Now s/p WLE of mucosal lesion, tooth extraction, anterior/inferior maxillectomy carried out by Dr Rivera and Dr Mariah posada on 03/25/25 (Path:SCC). She presents for POST-OP: check maxillary healing and obturator Chief Complaint Patient presents in company of his Nicole. He complains of mild soreness but no pain. He is 3 weeks post-op Existing Patient Post-surgical Review of Systems Ears/Nose/Mouth/Throat Hearing loss or ringing: NO Earache or drainage: NO Chronic sinus problem or rhinitis: NO Nose bleeds: NO Mouth sores: NO Tooth/dental pain NO Bleeding gingiva: NO Bad breath or bad taste: NO Sore throat or voice change: NO Swollen glands in neck: NO Cardiovascular Heart trouble:YES, afib Heart stent or devices: NO Palpitation: NO Shorthness of breath with walking or lying flat: NO Swelling of feet, ankles or hands: NO Blood thinners: NO SKELETAL History of hip or knee replacements:YES, right hip replacement History of bone conditions or use of biphosphonates: NO History of trauma, placement of metal devices in the body: NO Medical History Past Medical History[1] Surgical History Past Surgical History[2] Social History Social History Socioeconomic History Marital status: Single Spouse name: Not on file Number of children: Not on file Years of education: Not on file Highest education level: Not on file Occupational History Not on file Tobacco Use Smoking status: Never Smokeless tobacco: Never Vaping Use Vaping status: Never Used Substance and Sexual Activity Alcohol use: Yes Alcohol/week: 3.0 standard drinks of alcohol Types: 3 Standard drinks or equivalent per week Drug use: Never Sexual activity: Yes Partners: Female Other Topics Concern Not on file Social History Narrative Not on file Social Drivers of Health Financial Resource Strain: Not on file Food Insecurity: Not on file Transportation Needs: Not on file Physical Activity: Not on file Stress: Not on file Social Connections: Not on file Personal Safety: Not on file Housing Stability: Not on file Current Medications Current Outpatient Medications Medication Sig acetaminophen (TYLENOL) 500 MG tablet Take 1-2 tablets as needed for pain every 6 hours, alternating with Ibuprofen. If using Liquid Ages [place], decreased tylenol to 1 tablet every 6-8 hours[address] Aspirin [address] tablet Take 1 tablet by mouth. chlorhexidine 0.12 % Solution oral solution Swish and spit 15 mL 4 times daily for 7 days. Gabapentin 100 MG capsule Take 1 capsule by mouth Three times a day. Lidocaine viscous-Alum & Mag Ipqwagitn-Cpxghq-unyhqinnhzSCHOU oral mouthwash 1:1:1 Swish and spit 15 mL every 6 hours as needed. Multiple Vitamin (MULTI-VITAMINS PO) Take by mouth. [place]-3 Fatty Acids (OMEGA 3 FISH OIL PO) Take 1,000 mg by mouth. Current Diagnosis Problem List[3] Encounter Diagnosis Encounter Diagnoses Name Primary? 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 The needs for adjuvant radiation is to be determined, after surgical path results are obtained. He is cleared from a dental standpoint, if he ends up needed it. Examination Vitals Blood pressure 167/83, pulse 77, temperature 97.8 F (36.6 C), temperature source Temporal, resp. rate 20, weight 115.8 kg (255 lb 4.8 oz), SpO2 98%. Documented vital signs above from today's visit reviewed. Reviewed medications. Evaluation includedthe face, lip, and oral cavity, tongue, floor of mouth, hard palate, soft palate, submandibular andrevealed normal dentition for age, good oral hygiene, and SCC of the maxillary anterior gums. Face: Symmetric Oral Pathology: NONE Dental infection: NONE Missing dentition: # 1, 5, 12, 16, 17, 21, 28, and 32 Present dentition: # 2, 3, 4, 6, 7, 8, 9, 10, 11, 13, 14, 15, 18, 19, 20, 22, 23, 24, 25, 26, 27, 29, 30, and 31 Impacted: NONE History of wisdom teeth removal: Yes History of orthodontic treatment: No Dental implants: NONE Acquired defect: NONE Current prosthesis: NONE Hard palate: Normal, no mass or lesions. No palatal torus. Soft palate: Normal, no mass or lesions, raises bilaterally. Lingual alvolar ridge: Normal, mass or lesions. No lingual herminia. Bilateral lingual herminia Periodontium: normal. Inflammation: severe at maxillary gingiva #7-10. Plaque/calculus: mild Periodontal diagnosis: Overall Healthy Periodontium in mandible and posterior maxilla. SCC anteriormaxilla Caries & Caries Dx: No caries detected. Endodontically treated: NONE Restorations: Metallic restorations: Crowns: PFM #14, 30. Bridges:NONE. Amalgams: #2,3,4,19,20,31 Inter-incisal distance: Normal 51 mm or 3 fingers (Reference points: #8, 25) Saliva: Normal, good quantity and quality is mostly watery Tongue: Normal. Mobile and functional Speech: No current speech problem Dental imaging findings: Panorex and CBCT (Maxillary sinus clear bilaterally. Missing: # 1, 5, 12, 16, 17, 21, 28, and 32 . Alveolar bone loss localized to tooth #9 with ulcerative lesion. No caries.No periapical infection. Inferior cortex of mandible is intact. Inferior alveolar canal visible bilaterally. Normal shaped condyles.) Assessment Smith Leroy presents for post-op: 3 weeks post anterior maxilelctomy He is partially edentulous. Missing all 4 wisdom teeth (#1,16,17,32) and all first premolar teeth (#5,12,21,28). He has good oral hygiene. Clinical presentation: Maxilla: SCC is presenting as a large ulcerative lesion at the facial gingiva of tooth #9 and extends laterally to the adjacent teeth #7,8,10. The ulcerative lesion extends also at the interproximal gingiva into premaxillary palatal gingiva of teeth #6,7,8,9,10,11. There is leukoplakia halo at the crestal gingiva of teeth #6,7,8. The posterior molars and premolars look normal, healthy. Most likely patient will loose teeth #6,7,8,9,10. He will need an immediate surgical obturator and I will include denture teeth to maintain his speech, appearance, and psychological well being. Mandible: Normal teeth and gingiva. The left molar #18 has lost its prior dental sikhism, not decayed. This tooth can be kept and he can get a crown at a later time with his local dentist. Radiographic presentation: Maxilla:Bony erosion of the maxillary bone above tooth #9 and at the palatal bone corresponding to the incisive canal. Mandible: Normal alveolar bone around mandibular teeth. Today 04/18/25, he is 3 week post-op. Mild discomfort but no pain. Doing well. Clinical exam revealthe mucosa is growing over the bone defect, no more bone exposed. There is a mild anterior lip sorespot. A new obturator was adjusted by reducing the labial surface and the superior borders. A 3mm spacing was provided for upper lip movements and comfort. The clasps had good retention, no need to adjust. He also complains of mild pressure in the posterior hard palate. I reduced the soft liner in this area. Everything was highly polished. The upper lip is well supported. Occlusion is good. Esthetics are great. Plan of Care I.Pre-surgical Maxillofacial Prosthetics: Immediate surgical obturator CPT 05715- impressions made on 03/14/25 II.Post-surgical Maxillofacial Prosthetics Temporary/interim obturator CPT 08272 Definitive obturator CPT 01168 General Dentistry Care with local dentist Name: Dr. Lucía Dee DDS Address: [address] [place] [address] [place] [address] Email: [email or web address] Treatment/Procedures performed today: Post-op check Post-op Intraoral photos Adjustment to obturator contours Total time spent face to face with the patient today: 60 minutes, with over 50% of the face to facetime used for counseling or coordinating patient s care, not including the procedure. Disposition: Return for Follow-up and adjustments in 4 weeks. 03/14/25 CLINICAL EXAM:Pre-surgical Normal mouth opening 51mm Squamous cell carcinoma maxillary gingiva 03/14/25 RADIOGRAPHIC EXAM: Pre-surgical PANORAMIC 04/01/25 Unpacking 04/18/25 CLINICAL EXAM Thank you for allowing me to participate in the care of Smith P Kumar Please feel free to contact me if you have any questions or concerns. Martina Mills DMD [employer] Card Collection Clerk [employer]sembler [employer] [address] [place] [address], [address] floor, [place], [address] Office / [phone] Fax [email or web address] [1] Past Medical History: Diagnosis Date Arthritis Carcinoma in situ of lip 2023 History of inguinal herniorrhaphy Right Joint problem Degenerative change in facet joints L4-L5, L5-S1 Obesity Rotator cuff syndrome of left shoulder Squamous cell carcinoma of oral mucosa Between teeth #8 and #9 Tendon tear Left Quad Unspecified atrial fibrillation [2] Past Surgical History: Procedure Laterality Date EXCISION LESION MOUTH Bilateral 03/25/2025 Laterality: Bilateral; Surgeon: Brandin Rivera MD, PhD; Location: [facility] MAIN OR EXCISION LESION PALATE UVULA Bilateral 03/25/2025 Laterality: Bilateral; Surgeon: Brandin Rivera MD, PhD; Location: [facility] MA[facility] OR EXTRACTION TOOTH Bilateral 03/25/2025 Laterality: Bilateral; Surgeon: Brandin Rivera MD, PhD; Location: [facility] MA[facility] OR MAXILLECTOMY W/O ORBITAL EXENTERATION Bilateral 03/25/2025 Laterality: Bilateral; Surgeon: Brandin Rivera MD, PhD; Location: [facility] OR DEBRIDEMENT BONE N/A 03/25/2025 Laterality: N/A; Surgeon: Brandin Rivera MD, PhD; [facility] IMPRESSION/FABRICATION PROSTHESIS OBTURATOR N/A 03/25/2025 Laterality: N/A; Surgeon: Martina Mills DMD; [facility] HERNIA REPAIR HIP REPLACEMENT Right REPAIR MUSCLE QUADRICEPS Left [3] Patient Active Problem List Diagnosis Obesity (BMI 30.0-34.9) Primary oral squamous cell carcinoma documented in this encounterMer[facility]10-16-2025 Instructions* Patient Instructions* Martina Mills DMD - 04/18/2025 12:00 PM EDT Today you have seen Dr. Mills for follow-up and adjustments to surgical obturator. She has found that you are healing great! She adjusted the soft liner to reduce the size of it and make you more comfortable. Next appointment: Follow-up and adjustments in 4 weeks documented in this encounterMercy Health Urbana Hospital10-16-2025 History of Present illness Narrative* Alba Roman MD - 04/18/2025 10:30 AM EDT HPI: Smith Leroy was seen 04/18/2025 in the [facility] for follow up visit with a history of anterior gingival/hard palate SCC. Patient is s/p WLE of mucosal lesion, tooth extraction, anterior/inferior maxillectomy carried out on 03/25/25 (Path:SCC). History and review of systems is negative for changes since last visit. Has been eating softer dietdue to pressure with the teeth molding. Improving with time. Otherwise no new lesion, LAD, significant weight loss. He is doing well. Past Medical History[1] Past Surgical History[2] Current Medications[3] Allergies[4] Exam: Smoking Status Never Documented vital signs from today's visit reviewed. Physical exam including head and neck examination of the oral cavity, oropharynx, larynx, and hypopharynx including indirect mirror exam as well asinspection and palpation of the face, parotid and neck is remarkable for findings consistent with posttreatment postoperative changes and negative for new lesions, masses or lymphadenopathy. Healing well. No active infection. Airway is adequate. Data: Pathology was reviewed. Clinical History Preop Diagnosis: Primary oral squamous cell carcinoma. Medical History: Squamous cell carcinoma of oral mucosa. Joint problem. Carcinoma in situ of lip. Arthritis. Obesity. Tendon tear. History of inguinal herniorrhaphy. Unspecified atrial fibrillation. Rotator cuff syndrome of left shoulder. Pathologic Diagnosis A. Right lateral superior mucosa, excision: Negative for tumor. B. Right mid superior mucosa, excision: Negative for tumor. C. Right anterior superior mucosa, excision: Negative for tumor. D. Left anterior superior mucosa, excision: Negative for tumor. E. Left mid superior mucosa, excision: Negative for tumor. F. Left lateral superior mucosa, excision: Negative for tumor. G. Deep soft tissue over left premaxilla, excision: Negative for tumor. H. Left midline hard palate, excision: Negative for tumor. I. Left lateral hard palate, excision: Negative for tumor. J. Right lateral hard palate, excision: Negative for tumor. K. Right anterior hard palate, excision: Negative for tumor. L. Teeth, gross only: Grossly unremarkable teeth (gross only diagnosis). M. Anterior maxilla, maxillectomy: Squamous epithelium with bone, negative for carcinoma. See note. Note: Multiple levels examined on block M1. Dr. Hedyi Gustafson has reviewed part F and part M. Clinical History Received is a request for second opinion consultation by Dr. Brandin Rivera. Please review outside slides Clinical History: This is an excision of a 1.0 x 0.8 cm, pink lesion between teeth #8-#9 (facial and palate). A previous biopsy for severe dysplais is noted. Pathologic Diagnosis Outside Slides [id number] (02/26/25) A. Between teeth #8-#9, excision: Invasive squamous cell carcinoma, conventional. Clinical History Received is a request for second opinion consultation by Dr. Brandin Rivera. Please review outside slides Clinical History: This lesion was biopsies from the gingiva between teeth #8 and #9. It is pink/red and measures 1.5 x 1.0 cm. Clinical Information: Squamous cell carcinoma. Pathologic Diagnosis Outside Slides [id number] (12/17/24) A. Gingiva between teeth #8 and #9, biopsy: At least high-grade dysplasia. Impression/Plan: Smith Leroy is a 60 y.o. patient with a history of anterior gingival/hard palate SCC s/p WLE of mucosal lesion, tooth extraction, anterior/inferior maxillectomy carried out on 03/25/25 (Path:SCC). . Overall the patient is doing quite well and healing well. - Continue to follow w/ Dr. Mills - Follow up in 4 months Attending Physician Attestation I independently interviewed, examined and formulated the medical decision making for Smith Leroy Details of my interview, examination findings, and medical decision-making are confirmed and documented above which I have edited where appropriate. Brandin Rivera MD, PHD [1] Past Medical History: Diagnosis Date Arthritis Carcinoma in situ of lip 2023 History of inguinal herniorrhaphy Right Joint problem Degenerative change in facet joints L4-L5, L5-S1 Obesity Rotator cuff syndrome of left shoulder Squamous cell carcinoma of oral mucosa Between teeth #8 and #9 Tendon tear Left Quad Unspecified atrial fibrillation [2] Past Surgical History: Procedure Laterality Date EXCISION LESION MOUTH Bilateral 03/25/2025 Laterality: Bilateral; Surgeon: Brandin Rivera MD, PhD; Location: [facility] MA[facility] OR EXCISION LESION PALATE UVULA Bilateral 03/25/2025 Laterality: Bilateral; Surgeon: Brandin Rivera MD, PhD; Location: [facility] OR EXTRACTION TOOTH Bilateral 03/25/2025 Laterality: Bilateral; Surgeon: Brandin Rivera MD, PhD; Location: [facility] OR MAXILLECTOMY W/O ORBITAL EXENTERATION Bilateral 03/25/2025 Laterality: Bilateral; Surgeon: Brandin Rivera MD, PhD; Location: [facility] MA[facility] OR DEBRIDEMENT BONE N/A 03/25/2025 Laterality: N/A; Surgeon: Brandin Rivera MD, PhD; Location: [facility] MA[facility] OR IMPRESSION/FABRICATION PROSTHESIS OBTURATOR N/A 03/25/2025 Laterality: N/A; Surgeon: Martina Mills DMD; Location: [facility] MA[facility] OR HERNIA REPAIR HIP REPLACEMENT Right REPAIR MUSCLE QUADRICEPS Left [3] Current Outpatient Medications Medication Sig Dispense Refill acetaminophen (TYLENOL) 500 MG tablet Take 1-2 tablets as needed for pain every 6 hours, alternating with Ibuprofen. If using Liquid Ages [place], decreased tylenol to 1 tablet every 6-8 hours. Aspirin [address] tablet Take 1 tablet by mouth. (Patient taking differently: Take 1 tablet by mouth daily every morning.) chlorhexidine 0.12 % Solution oral solution Swish and spit 15 mL 4 times daily for 7 days. 473 mL 0 Lidocaine viscous-Alum & Mag Cwjusnphy-Yvtrnr-jfzyabjzdeLKTQJ oral mouthwash 1:1:1 Swish and spit 15 mL every 6 hours as needed. 480 mL 1 Multiple Vitamin (MULTI-VITAMINS PO) Take by mouth. (Patient taking differently: Take 1 tablet by mouth daily every morning.) [place]-3 Fatty Acids (OMEGA 3 FISH OIL PO) Take 1,000 mg by mouth. (Patient taking differently: Take1,000 mg by mouth daily every morning.) No current facility-administered medications for this visit. [4] Allergies Allergen Reactions Oxycodone-Acetaminophen Nausea and Vomiting [facility] Instructions* Patient Instructions* Esthela Zhu RN - 04/18/2025 10:30 AM EDT Please call Dr. Miguel Proctor's primary nurse at [phone] if you notice any new lumps in head orneck, new onset of difficulty with swallowing, persistent ear pain, hoarseness or new pain in head and neck that does not go away for 2 weeks. For covid vaccine call [phone] ([phone]). [facility] is now providing 3rd covid vaccine doses. [facility] History of Present illness Narrative* SHAKA Fraga - 04/01/2025 9:00 AM EDT Patient reports the following: Falls-no Pain-no Pt reports Pharmacy, medications, and allergies verified. Pt in company with - Nicole All data collected, documented, and reported to Dr. Mills. EMPERATRIZ Moran II * Martina Mills DMD - 04/01/2025 9:00 AM EDT Images from the original note were not included. MAXILLOFACIAL PROSTHODONTICS CLINIC Smith Leroy is 60 y.o. male and is a new patient of [facility]: Maxillofacial Prosthodontics Clinic. He was referred by Theron Cooney DDS (OMFS in private practice in [place], [place]). The [facility] attending surgeon is Brandin Rivera MD PhD. She was referred by Brandin Rivera MD, PhD for Dental Prosthetic Services: Surgical Obturator. She has been diagnosed with SCC of maxillary gingivas/p biopsy of the maxillary gingiva between #8-[address] Cooney on 02/22/25. Path by [facility] Pathology (Roman Peña MD) came back as: Invasive SCC, moderately differentiated. She presents for POST-OP: Unpacking Chief Complaint Patient presents in company of his Nicole. He complains of mild soreness but no pain. New Patient Pre-surgical Review of Systems Ears/Nose/Mouth/Throat Hearing loss or ringing: NO Earache or drainage: NO Chronic sinus problem or rhinitis: NO Nose bleeds: NO Mouth sores: NO Tooth/dental pain NO Bleeding gingiva: NO Bad breath or bad taste: NO Sore throat or voice change: NO Swollen glands in neck: NO Cardiovascular Heart trouble:YES, afib Heart stent or devices: NO Palpitation: NO Shorthness of breath with walking or lying flat: NO Swelling of feet, ankles or hands: NO Blood thinners: NO SKELETAL History of hip or knee replacements:YES, right hip replacement History of bone conditions or use of biphosphonates: NO History of trauma, placement of metal devices in the body: NO Medical History Past Medical History[1] Surgical History Past Surgical History[2] Social History Social History Socioeconomic History Marital status: Single Spouse name: Not on file Number of children: Not on file Years of education: Not on file Highest education level: Not on file Occupational History Not on file Tobacco Use Smoking status: Never Smokeless tobacco: Never Vaping Use Vaping status: Never Used Substance and Sexual Activity Alcohol use: Yes Alcohol/week: 3.0 standard drinks of alcohol Types: 3 Standard drinks or equivalent per week Drug use: Never Sexual activity: Yes Partners: Female Other Topics Concern Not on file Social History Narrative Not on file Social Drivers of Health Financial Resource Strain: Not on file Food Insecurity: Not on file Transportation Needs: Not on file Physical Activity: Not on file Stress: Not on file Social Connections: Not on file Personal Safety: Not on file Housing Stability: Not on file Current Medications Current Outpatient Medications Medication Sig acetaminophen (TYLENOL) 500 MG tablet Take 1-2 tablets as needed for pain every 6 hours, alternating with Ibuprofen. If using Liquid Ages [place], decreased tylenol to 1 tablet every 6-8 hours. Amoxicillin-clavulanate 875-125 MG tablet Take 1 tablet by mouth every 12 hours for 14 days. Aspirin [address] tablet Take 1 tablet by mouth. (Patient taking differently: Take 1 tablet by mouth daily every morning.) Bacillus Coagulans-Inulin (Probiotic) 1-250 BILLION-MG capsule Take 1 capsule by mouth daily. chlorhexidine 0.12 % Solution oral solution Swish and spit 15 mL 4 times daily for 7 days. Lidocaine viscous-Alum & Mag Bsfauixom-Yxzlwh-hayqzkqfffLKBSP oral mouthwash 1:1:1 Swish and spit 15 mL every 6 hours as needed. Multiple Vitamin (MULTI-VITAMINS PO) Take by mouth. (Patient taking differently: Take 1 tablet by mouth daily every morning.) [place]-3 Fatty Acids (OMEGA 3 FISH OIL PO) Take 1,000 mg by mouth. (Patient taking differently: Take1,000 mg by mouth daily every morning.) Current Diagnosis Problem List[3] Encounter Diagnosis Encounter Diagnoses Name Primary? 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 The needs for adjuvant radiation is to be determined, after surgical path results are obtained. He is cleared from a dental standpoint, if he ends up needed it. Examination Vitals Blood pressure 168/79, pulse 74, temperature 98.2 F (36.8 C), temperature source Temporal, resp. rate 16, weight 115.8 kg (255 lb 6.4 oz), SpO2 100%. Documented vital signs above from today's visit reviewed. Reviewed medications. Evaluation includedthe face, lip, and oral cavity, tongue, floor of mouth, hard palate, soft palate, submandibular andrevealed normal dentition for age, good oral hygiene, and SCC of the maxillary anterior gums. Face: Symmetric Oral Pathology: NONE Dental infection: NONE Missing dentition: # 1, 5, 12, 16, 17, 21, 28, and 32 Present dentition: # 2, 3, 4, 6, 7, 8, 9, 10, 11, 13, 14, 15, 18, 19, 20, 22, 23, 24, 25, 26, 27, 29, 30, and 31 Impacted: NONE History of wisdom teeth removal: Yes History of orthodontic treatment: No Dental implants: NONE Acquired defect: NONE Current prosthesis: NONE Hard palate: Normal, no mass or lesions. No palatal torus. Soft palate: Normal, no mass or lesions, raises bilaterally. Lingual alvolar ridge: Normal, mass or lesions. No lingual herminia. Bilateral lingual herminia Periodontium: normal. Inflammation: severe at maxillary gingiva #7-10. Plaque/calculus: mild Periodontal diagnosis: Overall Healthy Periodontium in mandible and posterior maxilla. SCC anteriormaxilla Caries & Caries Dx: No caries detected. Endodontically treated: NONE Restorations: Metallic restorations: Crowns: PFM #14, 30. Bridges:NONE. Amalgams: #2,3,4,19,20,31 Inter-incisal distance: Normal 51 mm or 3 fingers (Reference points: #8, 25) Saliva: Normal, good quantity and quality is mostly watery Tongue: Normal. Mobile and functional Speech: No current speech problem Dental imaging findings: Panorex and CBCT (Maxillary sinus clear bilaterally. Missing: # 1, 5, 12, 16, 17, 21, 28, and 32 . Alveolar bone loss localized to tooth #9 with ulcerative lesion. No caries.No periapical infection. Inferior cortex of mandible is intact. Inferior alveolar canal visible bilaterally. Normal shaped condyles.) Assessment Smith Leroy presents for post-op unpacking He is partially edentulous. Missing all 4 wisdom teeth (#1,16,17,32) and all first premolar teeth (#5,12,21,28). He has good oral hygiene. Clinical presentation: Maxilla: SCC is presenting as a large ulcerative lesion at the facial gingiva of tooth #9 and extends laterally to the adjacent teeth #7,8,10. The ulcerative lesion extends also at the interproximal gingiva into premaxillary palatal gingiva of teeth #6,7,8,9,10,11. There is leukoplakia halo at the crestal gingiva of teeth #6,7,8. The posterior molars and premolars look normal, healthy. Most likely patient will loose teeth #6,7,8,9,10. He will need an immediate surgical obturator and I will include denture teeth to maintain his speech, appearance, and psychological well being. Mandible: Normal teeth and gingiva. The left molar #18 has lost its prior dental sikhism, not decayed. This tooth can be kept and he can get a crown at a later time with his local dentist. Radiographic presentation: Maxilla:Bony erosion of the maxillary bone above tooth #9 and at the palatal bone corresponding to the incisive canal. Mandible: Normal alveolar bone around mandibular teeth. Today 04/01/25, he is 1 week post-op. Mild discomfort but no pain. Doing well. I removed the fixation screw, the obturator and the surgical packing. The defect was irrigated with sterile saline. A newobturator was fitted, This one has tooth #5 since it was removed at time of surgery. The clasps were adjusted to ensure good retention. Added soft liner. The posterior border was reduced to avoid issu es with his soft palate. The upper lip is well supported. He was educated on insertion/removal. Home care instructions were explained. Plan of Care I.Pre-surgical Maxillofacial Prosthetics: Immediate surgical obturator CPT 25065- impressions made on 03/14/25 II.Post-surgical Maxillofacial Prosthetics Temporary/interim obturator CPT 43881 Definitive obturator CPT 39985 General Dentistry Care with local dentist Name: Dr. Lucía Dee, [facility] Address: [address] [place] [address] Email: [email or web address] Treatment/Procedures performed today: Post-op unpacking Delivery of new obturator Post-op Intraoral photos Total time spent face to face with the patient today: 60 minutes, with over 50% of the face to facetime used for counseling or coordinating patient s care, not including the procedure. Disposition: Return for Follow-up in 2 weeks. 03/14/25 CLINICAL EXAM:Pre-surgical Normal mouth opening 51mm Squamous cell carcinoma maxillary gingiva 03/14/25 RADIOGRAPHIC EXAM: Pre-surgical PANORAMIC 04/01/25 Unpacking Thank you for allowing me to participate in the care of Smith Leroy Please feel free to contact me if you have any questions or concerns. Martina Mills DMD Bank Credit Card Collection Clerk Spider Assembler Jerry Schafer [address] [place] [address], [address] floor, [place], [address] Office / [phone] Fax [email or web address] [[email or web address]] Past Medical History: Diagnosis Date Arthritis Carcinoma in situ of lip 2023 History of inguinal herniorrhaphy Right Joint problem Degenerative change in facet joints L4-L5, L5-S1 Obesity Rotator cuff syndrome of left shoulder Squamous cell carcinoma of oral mucosa Between teeth #8 and #9 Tendon tear Left Quad Unspecified atrial fibrillation [2] Past Surgical History: Procedure Laterality Date EXCISION LESION MOUTH Bilateral 03/25/2025 Laterality: Bilateral; Surgeon: Brandin Rivera MD, PhD; Location: [facility] OR EXCISION LESION PALATE UVULA Bilateral 03/25/2025 Laterality: Bilateral; Surgeon: Brandin Rivera MD, PhD; Location: [facility] OR EXTRACTION TOOTH Bilateral 03/25/2025 Laterality: Bilateral; Surgeon: Brandin Rivera MD, PhD; Location: [facility] MA[facility] OR MAXILLECTOMY W/O ORBITAL EXENTERATION Bilateral 03/25/2025 Laterality: Bilateral; Surgeon: Brandin Rivera MD, PhD; Location: [facility] MA[facility] OR DEBRIDEMENT BONE N/A 03/25/2025 Laterality: N/A; Surgeon: Brandin Rivera MD, PhD; Location: [facility] MA[facility] OR IMPRESSION/FABRICATION PROSTHESIS OBTURATOR N/A 03/25/2025 Laterality: N/A; Surgeon: Martina Mills DMD; Location: [facility] MA[facility] OR HERNIA REPAIR HIP REPLACEMENT Right REPAIR MUSCLE QUADRICEPS Left [3] Patient Active Problem List Diagnosis Obesity (BMI 30.0-34.9) Primary oral squamous cell carcinoma [facility] Instructions* Patient Instructions* Martina Mills DMD - 04/01/2025 9:00 AM EDT Today you have seen Dr. Mills for unpacking of the anterior maxilla. She has cleaned the wound and modified a new obturator. She gave you a denture brush, denture cup, polident tablets/ Clean the obturator daily after each meal. Disinfect in polident for 10 min Next appointment: Follow-up in 2 weeks documented in this [facility]09-22-2025 Miscellaneous Notes* Op Note - Martina Mills DMD - 03/25/2025 4:19 PM EDT Maxillofacial Prosthodontics Operative Report PATIENT: Smith Leroy DATE PERFORMED: 03/25/2025 PREOPERATIVE DIAGNOSIS: Superior anterior gingival SCC POSTOPERATIVE DIAGNOSIS: Superior anterior gingival SCC PROCEDURE PERFORMED: 1.Wide local excision of superior gingiva 2. Wide local excision of hard palate 3. Anterior maxillectomy 4. Extraction of teeth #5-11 with burring 5. Obturator placement secured with 15mm screw SURGEON: Martina Mills DMD BUILDING CODE ADMINISTRATOR: Alba Roman MD ANESTHESIA: General. BLOOD LOSS: 250 mL COMPLICATIONS: None CONDITION: Stable to PACU. FINDINGS: 2 cm superior erythematous gingival lesion above tooth #9 Diffuse anterior gingival leukoplakia above teeth #5-11 at inferior gum line Minimal hard palate leukoplakia anteriorly behind teeth #7-10 Teeth #5-11 extracted Anterior maxillectomy with bone saw Obturator placed with 15mm screw, defect filled with surgiflo, xeroform and soft form dental paste Small upper lip wound on left SPECIMEN: 1 : Teeth for gross Permanent SURG PATH SURG PATH REQUEST Brandin Rivera MD, PhD 03/25/2025 0814 2 : Anterior maxillectomy, double short stitch = anterior maxilla midline, single long stitch = midline hard palate Permanent SURG PATH SURG PATH REQUEST Brandin Rivera MD, PhD 03/25/2025 0853 3 : Right lateral superior mucosa Frozen SURG PATH SURG PATH REQUEST Brandin Rivera MD, PhD 03/25/2025 0858 4 : Right mid superior mucosa Frozen SURG PATH SURG PATH REQUEST Brandin Rivera MD, PhD 03/25/2025 0858 5 : Right anterior superior mucosa Frozen SURG PATH SURG PATH REQUEST Brandin Rivera MD, PhD 03/25/2025 0859 6 : Left anterior superior mucosa Frozen SURG PATH SURG PATH REQUEST Brandin Rivera MD, PhD 03/25/2025 0859 7 : Left mid superior mucosa Frozen SURG PATH SURG PATH REQUEST Brandin Rivera MD, PhD 03/25/2025899 8 : Left lateral superior mucosa Frozen SURG PATH SURG PATH REQUEST Brandin Rivera MD, PhD 03/25/2025899 9 : Deep soft tissue over left pre maxilla Frozen SURG PATH SURG PATH REQUEST Brandin Rivera MD, PhD 03/25/2025900 10 : Left midline hard palate Frozen SURG PATH SURG PATH REQUEST Brandin Rivera MD, PhD 03/25/2025902 11 : Left lateral hard palate Frozen SURG PATH SURG PATH REQUEST Brandin Rivera MD, PhD 03/25/2025902 12 : Right lateral hard palate Frozen SURG PATH SURG PATH REQUEST Brandin Rivera MD, PhD 03/25/2025903 13 : Right anterior hard palate INDICATIONS AND CONSENT: Smith Leroy is a 60 y.o. male who presented to the [facility] and the Maxillofacial Prosthodontics Clinic with biopsy proven SCC of the anterior maxillary gingiva. Given the patient's symptoms, they elected to proceed with the above stated procedure. Risks, benefits and alternatives to the procedure were discussed with the patient and informed consent was obtained. DESCRIPTION OF PROCEDURE: The patient was identified in the preoperative area, consent confirmed, and transported to the operating suite. They were then transferred to the operative table. After a transnasal approach for induction of general anesthesia, a proper surgeon initiated time out was performed. The patient was then prepped and draped in the usual sterile fashion. Dental extractions were done first. Local infiltration was done using Lidocaine with Epi 1:100,000. A periosteal elevator was used to reflect the gingival tissues from around the teeth #6-11. Straight elevator was used for luxation of the teeth and forceps #1 was used to extract all the maxillary anterior teeth #6,7,8,9,10,11. The sockets were irrigated with sterile saline. Next, the surgery continued with anterior maxillectomy by the Otolaryngology team. This was dictated separately. During maxillectomy a decision was made to also remove tooth #5. The tooth was removedwith a straight elevator. Finally, the surgery concluded with placement of an immediate surgical obturator to prosthetically close the defect. The obturator was checked for fit and found with good adaptation to the remaining posterior hard palate and teeth. The clasp on tooth #5 was removed since tooth #5 was extracted. A large anterior maxillectomy defect was found. No exposure to the maxillary sinus or nasal cavity was found. The acquired defect causes anterior displacement/rocking of the obturator. Therefore a decision was made to secure the obturator with one screw. A [employer] midface kit was used. A 1.5 x17 mm drill was used to pre-drill a hole into the desired position for the screw, this was done outside of the vladimir th. Then the obturator was placed and the same drill was used to drill into the maxillary bone (midhard palate). A 2.0 x15 mm non-locking blue screw was placed and confirmed to have good fixation tothe mid hard palate. The anterior maxillectomy defect was filled with Surgiflo and 1 sheet of xeroform. Then soft liner was placed to cover the xeroform and support the upper lip. The patient tolerated the procedure well without any evident complications. The patient was turned over to the anesthesia team, awaken from anesthesia and transferred to the PACU in stable condition.All counts were correct x2 at the conclusion of the procedure. Martina Mills DMD Bank Credit Card Collection Clerk Spider Assembler * Brief Op Note - Martina Mills DMD - 03/25/2025 4:19 PM EDT MAXILLOFACIAL PROSTHODONTICS BRIEF OP NOTE Smith Leroy ([id number]) PRE OPERATIVE DIAGNOSIS Primary oral squamous cell carcinoma [C06.9] POST OPERATIVE DIAGNOSIS Primary oral squamous cell carcinoma [C06.9] PROCEDURE PERFORMED Procedure(s) (LRB): EXCISION LESION MOUTH (Bilateral) EXCISION LESION PALATE UVULA (Bilateral) EXTRACTION TOOTH (Bilateral) MAXILLECTOMY W/O ORBITAL EXENTERATION (Bilateral) DEBRIDEMENT BONE (N/A) IMPRESSION/FABRICATION PROSTHESIS OBTURATOR (N/A) PRIMARY CLOSURE No INTRAOPERATIVE FINDINGS No significant abnormalities SURGEON Surgeons and Role: Panel 1: * Brandin Rivera MD, PhD - Primary Panel 2: * Martina Mills DMD - Primary ANESTHESIOLOGIST Anesthesiologist: Cristian Rosa DO WEED ERADICATOR: Alexsandra Ferrera APRN-WEED ERADICATOR SURGICAL STAFF Oracle Database Consultant: Deborah Koroma RN Relief Oracle Database Consultant: Ayanna Hatch RN Relief Scrub: Jayy Ramirez Resident Assisting: Alba Roman MD Orchestra Musician: Emily Mccann COMPLICATIONS None ESTIMATED BLOOD LOSS 250 ml SPECIMENS Cytology specimen sent ID Type Source Tests Collected by Time Destination 1 : Teeth for gross Permanent SURG PATH SURG PATH REQUEST Brandin Rivera MD, PhD 03/25/2025 0814 2 : Anterior maxillectomy, double short stitch = anterior maxilla midline, single long stitch = midline hard palate Permanent SURG PATH SURG PATH REQUEST Brandin Rivera MD, PhD 03/25/2025 0853 3 : Right lateral superior mucosa Frozen SURG PATH SURG PATH REQUEST Brandin Rivera MD, PhD 03/25/2025 0858 4 : Right mid superior mucosa Frozen SURG PATH SURG PATH REQUEST Brandin Rivera MD, PhD 03/25/2025 0858 5 : Right anterior superior mucosa Frozen SURG PATH SURG PATH REQUEST Brandin Rivera MD, PhD 03/25/2025 0859 6 : Left anterior superior mucosa Frozen SURG PATH SURG PATH REQUEST Brandin Rivera MD, PhD 03/25/2025 0859 7 : Left mid superior mucosa Frozen SURG PATH SURG PATH REQUEST Brandin Rivera MD, PhD 03/25/2025 0900 8 : Left lateral superior mucosa Frozen SURG PATH SURG PATH REQUEST Brandin Rivera MD, PhD 03/25/2025 0900 9 : Deep soft tissue over left pre maxilla Frozen SURG PATH SURG PATH REQUEST Brandin Rivera MD, PhD 03/25/2025 0901 10 : Left midline hard palate Frozen SURG PATH SURG PATH REQUEST Brandin Rivera MD, PhD 03/25/2025 0903 11 : Left lateral hard palate Frozen SURG PATH SURG PATH REQUEST Brandin Rivera MD, PhD 03/25/2025 0903 12 : Right lateral hard palate Frozen SURG PATH SURG PATH REQUEST Brandin Rivera MD, PhD 03/25/2025 0904 13 : Right anterior hard palate Frozen SURG PATH SURG [place] [id number] In brief, Mr Leroy underwent anterior partial maxillectomy and placement of an immediate surgical obturator. Martina Mills DMD March 25, 2025 9:41 PM * Nursing Notes - Eulalia Gilbert, RN - 03/25/2025 4:16 PM EDT Patient meets [facility] discharge criteria and discharged per MD order to home. Patient taken by wheelchair by Maria MATT to awaiting car. All belongings gathered with patient. Family/friend to drive patient home and care for patient 24 hours post-op. * Nursing Notes - Felicia Mchugh RN - 03/25/2025 12:09 PM EDT 1209: Patient arrived to [facility] from [facility] PACU via [email or web address]. Vital signs taken and stable. Patient given drink and snacks. Family called to bedside. Patient assessed. 1315: Discharge instructions, anesthesia precautions and prescriptions explained to patient and family/friend. All questions answered. 1344: Paged Ewer the following re: Smith Leroy in J6 is in phase 2 complaining of nausea after zofran and compazine. Are you able to order an additional dose of compazine or something else for nausea? Felicia Celestin [phone] * Nursing Notes - Lenore Charlton RN - 03/25/2025 11:08 AM EDT 1050: Patient arrives in [facility] PACU from [facility] with side rails up x2 with HOB >30 degrees, accompanied by Anesthesiologist: Cristian Rosa DO WEED ERADICATOR: Alexsandra Ferrera APRN-WEED ERADICATOR. Patient placed on monitors, VSS. Report received from anesthesia. Patient assessed, see assessment. Site assessed with surgical team, patient will discharge with amoxicillin, peridex wash x4 a day, and magic mouth wash for pain control. Obturator screwed in to be removed in clinic. 1112:Family updated. 1157: Report called to Iram WRIGHT, all questions answered. 1204: Patient discharged from [facility] PACU per protocol. Patient transported via gurney with side rails up x2 with HOB>30 degrees to [facility] by RN. Family called to patient's bedside. [facility] Postoperative evaluation and management note* Op Note - Martina Mills DMD - 03/25/2025 4:19 PM EDT Maxillofacial Prosthodontics Operative Report PATIENT: Smith Leroy DATE PERFORMED: 03/25/2025 PREOPERATIVE DIAGNOSIS: Superior anterior gingival SCC POSTOPERATIVE DIAGNOSIS: Superior anterior gingival SCC PROCEDURE PERFORMED: 1.Wide local excision of superior gingiva 2. Wide local excision of hard palate 3. Anterior maxillectomy 4. Extraction of teeth #5-11 with burring 5. Obturator placement secured with 15mm screw SURGEON: Martina Mills DMD BUILDING CODE ADMINISTRATOR: Alba Roman MD ANESTHESIA: General. BLOOD LOSS: 250 mL COMPLICATIONS: None CONDITION: Stable to PACU. FINDINGS: 2 cm superior erythematous gingival lesion above tooth #9 Diffuse anterior gingival leukoplakia above teeth #5-11 at inferior gum line Minimal hard palate leukoplakia anteriorly behind teeth #7-10 Teeth #5-11 extracted Anterior maxillectomy with bone saw Obturator placed with 15mm screw, defect filled with surgiflo, xeroform and soft form dental paste Small upper lip wound on left SPECIMEN: 1 : Teeth for gross Permanent SURG PATH SURG PATH REQUEST Brandin Rivera MD, PhD 03/25/2025 0814 2 : Anterior maxillectomy, double short stitch = anterior maxilla midline, single long stitch = midline hard palate Permanent SURG PATH SURG PATH REQUEST Brandin Rivera MD, PhD 03/25/2025 0853 3 : Right lateral superior mucosa Frozen SURG PATH SURG PATH REQUEST Brandin Rivera MD, PhD 03/25/2025 0858 4 : Right mid superior mucosa Frozen SURG PATH SURG PATH REQUEST Brandin Rivera MD, PhD 03/25/2025 0858 5 : Right anterior superior mucosa Frozen SURG PATH SURG PATH REQUEST Brandin Rivera MD, PhD 03/25/2025858 6 : Left anterior superior mucosa Frozen SURG PATH SURG PATH REQUEST Brandin Rivera MD, PhD 03/25/2025858 7 : Left mid superior mucosa Frozen SURG PATH SURG PATH REQUEST Brandin Rivera MD, PhD 03/25/2025899 8 : Left lateral superior mucosa Frozen SURG PATH SURG PATH REQUEST Brandin Rivera MD, PhD 03/25/2025899 9 : Deep soft tissue over left pre maxilla Frozen SURG PATH SURG PATH REQUEST Brandin Rivera MD, PhD 03/25/2025900 10 : Left midline hard palate Frozen SURG PATH SURG PATH REQUEST Brandin Rivera MD, PhD 03/25/2025902 11 : Left lateral hard palate Frozen SURG PATH SURG PATH REQUEST Brandin Rivera MD, PhD 03/25/2025902 12 : Right lateral hard palate Frozen SURG PATH SURG PATH REQUEST Brandin Rivera MD, PhD 03/25/2025903 13 : Right anterior hard palate INDICATIONS AND CONSENT: Smith Leroy is a 60 y.o. male who presented to the [facility] and the Maxillofacial Prosthodontics Clinic with biopsy proven SCC of the anterior maxillary gingiva. Given the patient's symptoms, they elected to proceed with the above stated procedure. Risks, benefits and alternatives to the procedure were discussed with the patient and informed consent was obtained. DESCRIPTION OF PROCEDURE: The patient was identified in the preoperative area, consent confirmed, and transported to the operating suite. They were then transferred to the operative table. After a transnasal approach for induction of general anesthesia, a proper surgeon initiated time out was performed. The patient was then prepped and draped in the usual sterile fashion. Dental extractions were done first. Local infiltration was done using Lidocaine with Epi 1:100,000. A periosteal elevator was used to reflect the gingival tissues from around the teeth #6-11. Straight elevator was used for luxation of the teeth and forceps #1 was used to extract all the maxillary anterior teeth #6,7,8,9,10,11. The sockets were irrigated with sterile saline. Next, the surgery continued with anterior maxillectomy by the Otolaryngology team. This was dictated separately. During maxillectomy a decision was made to also remove tooth #5. The tooth was removedwith a straight elevator. Finally, the surgery concluded with placement of an immediate surgical obturator to prosthetically close the defect. The obturator was checked for fit and found with good adaptation to the remaining posterior hard palate and teeth. The clasp on tooth #5 was removed since tooth #5 was extracted. A large anterior maxillectomy defect was found. No exposure to the maxillary sinus or nasal cavity was found. The acquired defect causes anterior displacement/rocking of the obturator. Therefore a decision was made to secure the obturator with one screw. A [employer] midface kit was used. A 1.5 x17 mm drill was used to pre-drill a hole into the desired position for the screw, this was done outside of the vladimir th. Then the obturator was placed and the same drill was used to drill into the maxillary bone (midhard palate). A 2.0 x15 mm non-locking blue screw was placed and confirmed to have good fixation tothe mid hard palate. The anterior maxillectomy defect was filled with Surgiflo and 1 sheet of xeroform. Then soft liner was placed to cover the xeroform and support the upper lip. The patient tolerated the procedure well without any evident complications. The patient was turned over to the anesthesia team, awaken from anesthesia and transferred to the PACU in stable condition.All counts were correct x2 at the conclusion of the procedure. 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] PROCEDURE PERFORMED Procedure(s) (LRB): EXCISION LESION MOUTH (Bilateral) EXCISION LESION PALATE UVULA (Bilateral) EXTRACTION TOOTH (Bilateral) MAXILLECTOMY W/O ORBITAL EXENTERATION (Bilateral) DEBRIDEMENT BONE (N/A) IMPRESSION/FABRICATION PROSTHESIS OBTURATOR (N/A) PRIMARY CLOSURE No INTRAOPERATIVE FINDINGS No significant abnormalities SURGEON Surgeons and Role: Panel 1: * Brandin Rivear MD, PhD - Primary Panel 2: * Martina Mills DMD - Primary ANESTHESIOLOGIST Anesthesiologist: Cristian Rosa DO WEED ERADICATOR: Alexsandra Ferrera APRN-WEED ERADICATOR SURGICAL STAFF Oracle Database Consultant: Deborah Koroma RN Relief Oracle Database Consultant: Ayanna Hatch RN Relief Scrub: Jayy Ramirez Resident Assisting: Alba Roman MD Orchestra Musician: Emily Mccann COMPLICATIONS None ESTIMATED BLOOD LOSS 250 ml SPECIMENS Cytology specimen sent ID Type Source Tests Collected by Time Destination 1 : Teeth for gross Permanent SURG PATH SURG PATH REQUEST Brandin Rivera MD, PhD 03/25/2025 0814 2 : Anterior maxillectomy, double short stitch = anterior maxilla midline, single long stitch = midline hard palate Permanent SURG PATH SURG PATH REQUEST Brandin Rivera MD, PhD 03/25/2025 0853 3 : Right lateral superior mucosa Frozen SURG PATH SURG PATH REQUEST Brandin Rivera MD, PhD 03/25/2025 0858 4 : Right mid superior mucosa Frozen SURG PATH SURG PATH REQUEST Brandin Rivera MD, PhD 03/25/2025 0858 5 : Right anterior superior mucosa Frozen SURG PATH SURG PATH REQUEST Brandin Rivera MD, PhD 03/25/2025 0859 6 : Left anterior superior mucosa Frozen SURG PATH SURG PATH REQUEST Brandin Rivera MD, PhD 03/25/2025 0859 7 : Left mid superior mucosa Frozen SURG PATH SURG PATH REQUEST Brandin Rivera MD, PhD 03/25/2025 09 8 : Left lateral superior mucosa Frozen SURG PATH SURG PATH REQUEST Brandin Rivera MD, PhD 03/25/2025 09 9 : Deep soft tissue over left pre maxilla Frozen SURG PATH SURG PATH REQUEST Brandin Rivera MD, PhD 03/25/2025 0901 10 : Left midline hard palate Frozen SURG PATH SURG PATH REQUEST Brandin Rivera MD, PhD 03/25/2025 09 11 : Left lateral hard palate Frozen SURG PATH SURG PATH REQUEST Brandin Rivera MD, PhD 03/25/2025 09 12 : Right lateral hard palate Frozen SURG PATH SURG PATH REQUEST Brandin Rivera MD, PhD 03/25/2025 09 13 : Right anterior hard palate Frozen SURG PATH SURG PATH [place]QUEST [place] [id number] In brief, Mr Leroy underwent anterior partial maxillectomy and placement of an immediate surgical obturator. Martina Mills DMD March 25, 2025 9:41 PM [facility] Note* Nursing Notes - Eulalia Gilbert RN - 03/25/2025 4:16 PM EDT Patient meets ASU discharge criteria and discharged per MD order to home. Patient taken by wheelchair by Maria MATT to awaiting car. All belongings gathered with patient. Family/friend to drive patient home and care for patient 24 hours post-op. [facility] Nurse Note* Nursing Notes - Felicia Mchugh RN - 03/25/2025 12:09 PM EDT 1209: Patient arrived to [facility] ASU from [facility] PACU via [facility]. Vital signs taken and stable. Patient given drink and snacks. Family called to bedside. Patient assessed. 1315: Discharge instructions, anesthesia precautions and prescriptions explained to patient and family/friend. All questions answered. 1344: Paged Ewer the following re: Smith Leroy in J6 is in phase 2 complaining of nausea after zofran and compazine. Are you able to order an additional dose of compazine or something else for nausea? Felicia Celestin [phone] [facility]09-[facility] Nurse Note* Nursing Notes - Lenore Charlton RN - 03/25/2025 11:08 AM EDT 1050: Patient arrives in [facility] PACU from OR via [facility] with side rails up x2 with HOB >30 degrees, accompanied by Anesthesiologist: Cristian Rosa DO WEED ERADICATOR: Alexsandra Ferrera APRN-WEED ERADICATOR. Patient placed on monitors, VSS. Report received from anesthesia. Patient assessed, see assessment. Site assessed with surgical team, patient will discharge with amoxicillin, peridex wash x4 a day, and magic mouth wash for pain control. Obturator screwed in to be removed in clinic. 1112:Family updated. 1157: Report called to Iram WRIGHT, all questions answered. 1204: Patient discharged from [facility] PACU per protocol. Patient transported via gurney with side rails up x2 with HOB>30 degrees to [facility] by RN. Family called to patient's bedside. [facility]09-22-2025 Nurse Surgical operation note* Deborah Koroma RN - 03/25/2025 10:31 AM EDT Obturator soaked in Hibiclens prior to insertion. [facility]09-22-2025 Nurse Note* Deborah Koroma RN - 03/25/2025 10:31 AM EDT Obturator soaked in Hibiclens prior to insertion. * Felicia Mchugh RN - 03/25/2025 5:39 AM EDT Patient denies hx of chemo and radiation. Patient denies metal or foreign objects in body EXCEPT R hip replacement. Patient denies hx of seizure or stroke. [facility] Hospital Discharge instructions* Discharge Instructions* Alba Roman MD - 03/25/2025 7:26 AM EDT Post-Operative Instructions Brandin Rivera MD, PhD Dept of Otolaryngology-Head and Neck Surgery [facility] [address] [place] [address] for appts This post-operative instruction sheet is designed to help you after surgery and help answer any of the common questions you may have. It is not entirely comprehensive, so if you have any questions, do not hesitate to call the office 24 hours a day. You may call the office at or the [facility] absorption plant operator at and ask for the otolaryngology resident licensed professional counselor. If you are having a medical emergency, you should not hesitate to call 911. What to expect: After the operation, it is normal to have: Hoarseness and throat pain as well as nose pain. This is often due to the tube that is placed for the anesthesia. Pain in your mouth Mild bleeding from your mouth Prescriptions Antibiotic: augmentin 14 days Daily probiotic while on antibiotics Peridex mouth wash, instructions below Magic mouthwash for pain as needed Scheduled tylenol for pain Wound Care and Hygiene: Incision care: Rinse your mouth with Peridex 4 times daily, before every meal and before bed Rinse your mouth with magic mouthwash for pain relief as needed Do not brush the area where the excision was performed for 2 weeks Hygiene You may shower/bathe without restriction Activity: Please follow these instructions: No heavy lifting (over 10 pounds), strenuous activity, sports, etc for 2 weeks You may return to driving in 2 weeks or when you are no longer taking narcotic pain medications Diet: Your doctor has recommended that you follow these diet instructions at home. If you would like morenutrition counseling, ask your doctor about making an appointment with an outpatient dietitian. No restrictions-usual diet -You are to have a SOFT diet for 2-3 days followed by regular diet, do not bite or chew with obturator Anesthesia Precautions & Expectations: After anesthesia, rest for [address], drink alcoholic beverages or make any important decisions during this time. General anesthesia may cause a sore throat, jaw discomfort or muscle aches. These symptoms can lastfor one or two days. Miscellaneous Education Home Medicines-Resume Resume the medicines that you were taking at home before your hospital stay. Pain Medication A prescription for pain medicine will be sent home with you. Do not drive while taking prescriptionpain medicine. Eat when taking pain medicines to avoid nausea. Watch for constipation. Eat plenty of fruits, vegetables, juices, and drink 6 to 8 glasses of water each day. If this medicine is too strong, or no longer needed, you may take Extra strength acetaminophen, like Tylenol Extra-strength. Take 2 tablets every 4 to 6 hours as needed for mild pain. Do not take Tylenol while you are taking the narcotic pain medicine. When your pain decreases switch to over the counter acetaminophen, like Tylenol. Follow the dose aslabel directs. Take an over the counter stool softeners twice daily while taking the narcotic pain medicine to prevent constipation. Take a stool softener twice a day as long as you remain on pain medicine. If you do not have a bowel movement within 5 days of your surgery, please take milk of magnesia. If you do not have a bowel movement within 12 hours of milk of magnesia, call the office. Call the office if you experience any of the following: Fever higher than 101 F Pain not relieved with medicines. Increased amounts of redness, swelling, or any malodorous or thick drainage from the incision. Swallowing or breathing difficulties Nausea and vomiting not resolved in 24 hours. Additional Contacts: Evening and Weekend Contacts If you have questions or concerns during evening, weekend, or holiday hours, please call: -[facility] absorption plant operator at [phone]. Ask the absorption plant operator to page the on-call doctor for Ear, Nose and Throat, the service that was responsible for your care while you were in the hospital. If you having an emergency, call 351. (BRANDIN) During regular business hours, please call [phone] with any questions or concerns Kandi CHERY (Patient Care Cook Chief) [phone] Tanesha Chiu RN (Patient Care Cook Chief) [phone] [facility] Attending History and physical note* Alba Roman MD - 03/25/2025 6:17 AM EDT I have examined the patient and reviewed the previous H&P completed on date 03/18/25 and there are no changes. Alba Roman MD, 03/25/2025, 6:17 AM. Cosigned by Brandin Rivera MD, PhD at 03/25/2025 10:00 AM EDT Source Note - Deborah Turner APRN-REFINERY OPERATOR COKING - 03/18/2025 12:45 PM EDT Images from the original note were not included. PREOPERATIVE ASSESSMENT [facility] Name: Smith Leroy Date of Surgery: 03/25/2025 Surgeon: Brandin De La Cruz / Martina Ahn Pre-Op Diagnosis: Primary oral squamous cell carcinoma Planned Procedure: WLE ANTERIOR PALATE AND GINGIVA, TOOTH EXTRACTIONS, BONE DAPHNEY, POSSIBLE INFERIOR MAXILLECTOMY, OBTURATOR PLACEMENT Anesthesia Type: planned for General SUMMARY AND RECOMMENDATIONS The patient is medically optimized at the time of this visit. {Strict NPO Diet recommended secondary to ASA 3 or more Smith Leroy is a 60 y.o. year old patient with a history the following diagnoses which increase his risk for perioperative complications. he being referred for pre operative evaluation and optimization. The relative status of the medical conditions are further explained in this note. 1. Preop exam for internal medicine 2. Primary oral squamous cell carcinoma ANESTHESIA and AIRWAY Anesthesia alerts: SENA Risk, PONV Personal history of problems related to anesthesia (ex.Malignant Hyperthermia): no Family History of problems related to anesthesia (ex.Malignant Hyperthermia: no Pacer/AICD: no Parenteral Access: no Glaucoma: last ophthalmology exam has been a few years. Nerve stimulators (DBS, PNS, SCS): no Mediport: no SENA: no STOP-BANG Risk Assessment Do you snore - Yes Are you frequently tired during the day? - No Have you been observed gasping or choking while asleep? - No Do you have high blood pressure? - No Age more than 50? - Yes Gender male? - Yes Neck circumference greater than 40 cm? - Yes Neck Circumference (cm): 47 BMI more then 35? - No Body mass index is 33.38 kg/m . Mallampati class - 2 TM Distance - 3 FB Oral Opening - 3FB Teeth - normal dentition for age Cervical range of motion - within normal limits Neck circumference - Neck Circumference (cm): 47 Allergies and adverse drug reactions Allergies[1] ANESTHESIA/AIRWAY ASSESSMENT AND PLAN- # Anesthesia Alerts as above if applicable # Patient is at Intermediate (3-4) risk for SENA # Previous Airway Details below (if available) CARDIOVASCULAR Do you take Aspirin or other antiplatelet agents? yes -2/2 Prevention. Patient advised to hold ASA 7 days prior to surgery Do you take anti-coagulations? no Beta Mary: no Patient denies a history of cardiac events or TX. Denies chest pain with ambulation or ADLs around the house. Denies palpitations, denies LE edema, denies orthopnea # Functional status - METS: Moderate: 4-7 METS Able to walk 2 city blocks with no GILES or chest pain. 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 CARDIAC TESTING and REVIEW OF PREVIOUS CARDIAC TESTING/IMAGING EKG due to AGE and NATURE OF PROCEDURE ECG: personally reviewed ASSESSMENT AND PLAN- BP Readings from Last 3 Encounters: 03/18/25 136/70 03/18/25 (!) 169/96 03/14/25 163/87 # Pre-operative Risk Evaluation: Patient Meets the Following RCRI Criteria (RCRI): None: 0 criteria suggesting a 3.9% risk of major cardiac events or within 30 days. Smith Leroy is at a Low risk based on the RCRI above. Patient can achieve METS > 4. Per ACC/AHAguidelines, the patient requires no further testing at this time. The patient is at elevated risk for the following perioperative complications not captured by the RCRI: N/A PULMONARY PULMONARY TESTING AND REVIEW OF RECORDS if any CT chest 03/18/2025 Personally reviewed IMPRESSION: No imaging evidence for intrathoracic metastatic disease. ASSESSMENT AND PLAN: Recommendations to minimize the risk of pulmonary complications: - Aggressive pulmonary toilet (incentive spirometry, flutter valve, deep coughing), judicious use of analgesia, early ambulation when feasible from a postoperative perspective, pharmacologic DVT prophylaxis if possible SOCIAL/SUBSTANCE USE HISTORY Tobacco Use History[2] Social History Substance and Sexual Activity Alcohol Use Yes Alcohol/week: 3.0 standard drinks of alcohol Types: 3 Standard drinks or equivalent per week Social History Substance and Sexual Activity Drug Use Never Does the patient Vape? no ASSESSMENT AND PLAN: # Alcohol use -Advised to abstain from ETOH 2 days prior to procedure. HEMATOLOGY History of DVT/PE - no In case of surgeons plan or unforseen emergency, are you okay with receiving blood products? - Yes Patient has not received blood transfusions in the past 90 days Have you ever been diagnosed with any bleeding disorders in the past (Hemophilia A or B, Von Willebrand Disease)? - No ASSESSMENT AND PLAN Recommend standard VTE prophylaxis post operatively DIABETES and ENDOCRINOLOGY ASSESSMENT AND PLAN N/A No results found for: HGBA1C NEUROLOGY ASSESSMENT AND PLAN # ADDITIONAL DIAGNOSES OF CONCERN # Primary oral squamous cell carcinoma Acute/Stable - planned for surgery above ADVANCED CARE PLANNING (for elderly and frail patients) Code Status: Not on file MEDICATIONS Current Outpatient Medications Medication Sig Aspirin [address] tablet Take 1 tablet by mouth. (Patient taking differently: Take 1 tablet by mouth daily every morning.) chlorhexidine 0.12 % Solution oral solution SWAB AREA 3 TIMES A DAY SPIT OUT DO NOT SWALLOW (Patient taking differently: Swish and spit 15 mL 2 times daily.) Multiple Vitamin (MULTI-VITAMINS PO) Take by mouth. (Patient taking differently: Take 1 tablet by mouth daily every morning.) [place]-3 Fatty Acids (OMEGA 3 FISH OIL PO) Take 1,000 mg by mouth. (Patient taking differently: Take1,000 mg by mouth daily every morning.) hydroCODone-acetaminophen 5-325 MG tablet take 1 tablet by mouth every 4-6 hours as needed for pain(Patient not taking: Reported on 03/18/2025) Medication A/P - Instructions for preoperative medications given to the patient in AVS. LABS Orders Placed This Encounter CBC, EDIF, PLATELET CHEM 6 (LYTES, BUN CREA) CA ECG, CLINIC PERFORMED Lab A/P - Lab results dated 03/18/2025 were reviewed ; the results were within an acceptable range Thank you for allowing us to participate in the care of Smith Leory. Total time spent on the day of patient's visit was 17 minutes. This includes but is not limited to time spent preparing to see the patient, precharting, reviewing outside medical records, time spent in the patient's room doing a history and physical exam along with medication education, ordering lab test and requesting medical information as well as interpreting lab results and testing completed at [facility] and outside facilities through Care Everywhere. All the labs reviewed have been summarized and included in my history above. Note to patient: The Cures Act makes medical notes like these available to patients inthe interest of transparency. However, be advised this is a medical document. It is intended as [id number]-kjhj communication. It is written in medical language and may contain abbreviations or verbiagethat are unfamiliar. It may appear blunt or direct. Medical documents are intended to carry relevant information, facts as evident, and the clinical opinion of the practitioner. SkyJam dictation software may have been used to write this note. Please excuse any errors that may have occurred as a result of the dictation. Deborah Turner, WOOD TYPE FINISHER-REFINERY OPERATOR COKING [facility] [address] Review of Systems (OSUROS) Review of Systems Constitutional: Negative for chills, fatigue and fever. HENT: Positive for dental problem (cold sensitivity to bilateral upper central incisors). Negative for congestion, ear pain, hearing loss, rhinorrhea, sneezing, sore throat and trouble swallowing. Eyes: Negative for pain. Respiratory: Negative for apnea, cough, chest tightness and shortness of breath. Cardiovascular: Negative for chest pain and palpitations. Gastrointestinal: Negative for abdominal pain, constipation, diarrhea, nausea and vomiting. Endocrine: Negative for polyuria. Genitourinary: Negative for difficulty urinating, dysuria, frequency, hematuria and urgency. Musculoskeletal: Negative for back pain, gait problem and neck pain. Skin: Negative for rash and wound. Allergic/Immunologic: Negative for food allergies. Neurological: Negative for seizures, syncope and weakness. Hematological: Does not bruise/bleed easily. Psychiatric/Behavioral: Negative for confusion and sleep disturbance. The patient is not nervous/anxious. All other pertinent positives are also in the note above. Physical Examination ([facility]) Blood pressure 136/70, pulse 85, temperature 98.4 F (36.9 C), resp. rate 18, height 1.88 m (6' 2 ),weight 117.9 kg (260 lb), SpO2 96%. Physical Exam Constitutional: General: He is not in acute distress. Appearance: Normal appearance. He is obese. He is not ill-appearing, toxic- appearing or diaphoretic. HENT: Head: Normocephalic and atraumatic. Right Ear: External ear normal. Left Ear: External ear normal. Nose: Nose normal. No congestion or rhinorrhea. Mouth/Throat: Mouth: Mucous membranes are moist. Pharynx: Oropharynx is clear. No oropharyngeal exudate or posterior oropharyngeal erythema. Eyes: General: No scleral icterus. Right eye: No discharge. Left eye: No discharge. Conjunctiva/sclera: Conjunctivae normal. Neck: Vascular: No carotid bruit. Cardiovascular: Rate and Rhythm: Normal rate and regular rhythm. Pulses: Normal pulses. Heart sounds: Normal heart sounds. No murmur heard. Pulmonary: Effort: Pulmonary effort is normal. No respiratory distress. Breath sounds: No stridor. No wheezing, rhonchi or rales. Chest: Chest wall: No tenderness. Abdominal: General: Abdomen is flat. Bowel sounds are normal. There is no distension. Tenderness: There is no abdominal tenderness. Musculoskeletal: General: No swelling. Normal range of motion. Cervical back: Normal range of motion. No rigidity. No muscular tenderness. Right lower leg: No edema. Left lower leg: No edema. Skin: General: Skin is warm and dry. Capillary Refill: Capillary refill takes less than 2 seconds. Coloration: Skin is not jaundiced or pale. Findings: No bruising, erythema, lesion or rash. Neurological: General: No focal deficit present. Mental Status: He is alert. Mental status is at baseline. Psychiatric: Mood and Affect: Mood normal. Behavior: Behavior normal. Thought Content: Thought content normal. 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 L4-L5, L5-S1 Obesity Rotator cuff syndrome of left shoulder Squamous cell carcinoma of oral mucosa Between teeth #8 and #9 Tendon tear Left Quad Unspecified atrial fibrillation [4] Past Surgical History: Procedure Laterality Date HERNIA REPAIR HIP REPLACEMENT Right REPAIR MUSCLE QUADRICEPS Left [5] Social History Socioeconomic History Marital status: Single Tobacco Use Smoking status: Never Smokeless tobacco: Never Vaping Use Vaping status: Never Used Substance and Sexual Activity Alcohol use: Yes Alcohol/week: 3.0 standard drinks of alcohol Types: 3 Standard drinks or equivalent per week Drug use: Never Sexual activity: Yes Partners: Female [facility]09-22-2025 History and physical note* Alba Roman MD - 03/25/2025 6:17 AM EDT I have examined the patient and reviewed the previous H&P completed on date 03/18/25 and there are no changes. Alba Roman MD, 03/25/2025, 6:17 AM. Cosigned by Brandin Rivera MD, PhD at 03/25/2025 10:00 AM EDT Source Note - JAIR Rajan - 03/18/2025 12:45 PM EDT Images from the original note were not included. PREOPERATIVE ASSESSMENT H[facility]P [facility] Name: Smith Leroy Date of Surgery: 03/25/2025 Surgeon: Brandin De La Cruz / Martina Ahn Pre-Op Diagnosis: Primary oral squamous cell carcinoma Planned Procedure: WLE ANTERIOR PALATE AND GINGIVA, TOOTH EXTRACTIONS, BONE DAPHNEY, POSSIBLE INFERIOR MAXILLECTOMY, OBTURATOR PLACEMENT Anesthesia Type: planned for General SUMMARY AND RECOMMENDATIONS The patient is medically optimized at the time of this visit. {Strict NPO Diet recommended secondary to ASA 3 or more Smith Leroy is a 60 y.o. year old patient with a history the following diagnoses which increase his risk for perioperative complications. he being referred for pre operative evaluation and optimization. The relative status of the medical conditions are further explained in this note. 1. Preop exam for internal medicine 2. Primary oral squamous cell carcinoma ANESTHESIA and AIRWAY Anesthesia alerts: SENA Risk, PONV Personal history of problems related to anesthesia (ex.Malignant Hyperthermia): no Family History of problems related to anesthesia (ex.Malignant Hyperthermia: no Pacer/AICD: no Parenteral Access: no Glaucoma: last ophthalmology exam has been a few years. Nerve stimulators (DBS, PNS, SCS): no Mediport: no SENA: no STOP-BANG Risk Assessment Do you snore - Yes Are you frequently tired during the day? - No Have you been observed gasping or choking while asleep? - No Do you have high blood pressure? - No Age more than 50? - Yes Gender male? - Yes Neck circumference greater than 40 cm? - Yes Neck Circumference (cm): 47 BMI more then 35? - No Body mass index is 33.38 kg/m . Mallampati class - 2 TM Distance - 3 FB Oral Opening - 3FB Teeth - normal dentition for age Cervical range of motion - within normal limits Neck circumference - Neck Circumference (cm): 47 Allergies and adverse drug reactions Allergies[1] ANESTHESIA/AIRWAY ASSESSMENT AND PLAN- # Anesthesia Alerts as above if applicable # Patient is at Intermediate (3-4) risk for SENA # Previous Airway Details below (if available) CARDIOVASCULAR Do you take Aspirin or other antiplatelet agents? yes -2/2 Prevention. Patient advised to hold ASA 7 days prior to surgery Do you take anti-coagulations? no Beta Mary: no Patient denies a history of cardiac events or TX. Denies chest pain with ambulation or ADLs around the house. Denies palpitations, denies LE edema, denies orthopnea # Functional status - METS: Moderate: 4-7 METS Able to walk 2 city blocks with no GILES or chest pain. 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 CARDIAC TESTING and REVIEW OF PREVIOUS CARDIAC TESTING/IMAGING EKG due to AGE and NATURE OF PROCEDURE ECG: personally reviewed ASSESSMENT AND PLAN- BP Readings from Last 3 Encounters: 03/18/25 136/70 03/18/25 (!) 169/96 03/14/25 163/87 # Pre-operative Risk Evaluation: Patient Meets the Following RCRI Criteria (RCRI): None: 0 criteria suggesting a 3.9% risk of major cardiac events or within 30 days. Smith Leroy is at a Low risk based on the RCRI above. Patient can achieve METS > 4. Per ACC/AHAguidelines, the patient requires no further testing at this time. The patient is at elevated risk for the following perioperative complications not captured by the RCRI: N/A PULMONARY PULMONARY TESTING AND REVIEW OF RECORDS if any CT chest 03/18/2025 Personally reviewed IMPRESSION: No imaging evidence for intrathoracic metastatic disease. ASSESSMENT AND PLAN: Recommendations to minimize the risk of pulmonary complications: - Aggressive pulmonary toilet (incentive spirometry, flutter valve, deep coughing), judicious use of analgesia, early ambulation when feasible from a postoperative perspective, pharmacologic DVT prophylaxis if possible SOCIAL/SUBSTANCE USE HISTORY Tobacco Use History[2] Social History Substance and Sexual Activity Alcohol Use Yes Alcohol/week: 3.0 standard drinks of alcohol Types: 3 Standard drinks or equivalent per week Social History Substance and Sexual Activity Drug Use Never Does the patient Vape? no ASSESSMENT AND PLAN: # Alcohol use -Advised to abstain from ETOH 2 days prior to procedure. HEMATOLOGY History of DVT/PE - no In case of surgeons plan or unforseen emergency, are you okay with receiving blood products? - Yes Patient has not received blood transfusions in the past 90 days Have you ever been diagnosed with any bleeding disorders in the past (Hemophilia A or B, Von Willebrand Disease)? - No ASSESSMENT AND PLAN Recommend standard VTE prophylaxis post operatively DIABETES and ENDOCRINOLOGY ASSESSMENT AND PLAN N/A No results found for: HGBA1C NEUROLOGY ASSESSMENT AND PLAN # ADDITIONAL DIAGNOSES OF CONCERN # Primary oral squamous cell carcinoma Acute/Stable - planned for surgery above ADVANCED CARE PLANNING (for elderly and frail patients) Code Status: Not on file MEDICATIONS Current Outpatient Medications Medication Sig Aspirin [address] tablet Take 1 tablet by mouth. (Patient taking differently: Take 1 tablet by mouth daily every morning.) chlorhexidine 0.12 % Solution oral solution SWAB AREA 3 TIMES A DAY SPIT OUT DO NOT SWALLOW (Patient taking differently: Swish and spit 15 mL 2 times daily.) Multiple Vitamin (MULTI-VITAMINS PO) Take by mouth. (Patient taking differently: Take 1 tablet by mouth daily every morning.) [place]-3 Fatty Acids (OMEGA 3 FISH OIL PO) Take 1,000 mg by mouth. (Patient taking differently: Take1,000 mg by mouth daily every morning.) hydroCODone-acetaminophen 5-325 MG tablet take 1 tablet by mouth every 4-6 hours as needed for pain(Patient not taking: Reported on 03/18/2025) Medication A/P - Instructions for preoperative medications given to the patient in AVS. LABS Orders Placed This Encounter CBC, EDIF, PLATELET CHEM 6 (LYTES, BUN CREA) CA ECG, CLINIC PERFORMED Lab A/P - Lab results dated 03/18/2025 were reviewed ; the results were within an acceptable range Thank you for allowing us to participate in the care of Smith Leroy. Total time spent on the day of patient's visit was 17 minutes. This includes but is not limited to time spent preparing to see the patient, precharting, reviewing outside medical records, time spent in the patient's room doing a history and physical exam along with medication education, ordering lab test and requesting medical information as well as interpreting lab results and testing completed at [facility] and outside facilities through [facility] Everywhere. All the labs reviewed have been summarized and included in my history above. Note to patient: The Century Cures Act makes medical notes like these available to patients inthe interest of transparency. However, be advised this is a medical document. It is intended as [id number] communication. It is written in medical language and may contain abbreviations or verbiagethat are unfamiliar. It may appear blunt or direct. Medical documents are intended to carry relevant information, facts as evident, and the clinical opinion of the practitioner. Mmodal dictation software may have been used to write this note. Please excuse any errors that may have occurred as a result of the dictation. Deborah Turner, WOOD TYPE FINISHER-KAT[employer] [facility] [address] Review of Systems (OSUROS) Review of Systems Constitutional: Negative for chills, fatigue and fever. HENT: Positive for dental problem (cold sensitivity to bilateral upper central incisors). Negative for congestion, ear pain, hearing loss, rhinorrhea, sneezing, sore throat and trouble swallowing. Eyes: Negative for pain. Respiratory: Negative for apnea, cough, chest tightness and shortness of breath. Cardiovascular: Negative for chest pain and palpitations. Gastrointestinal: Negative for abdominal pain, constipation, diarrhea, nausea and vomiting. Endocrine: Negative for polyuria. Genitourinary: Negative for difficulty urinating, dysuria, frequency, hematuria and urgency. Musculoskeletal: Negative for back pain, gait problem and neck pain. Skin: Negative for rash and wound. Allergic/Immunologic: Negative for food allergies. Neurological: Negative for seizures, syncope and weakness. Hematological: Does not bruise/bleed easily. Psychiatric/Behavioral: Negative for confusion and sleep disturbance. The patient is not nervous/anxious. All other pertinent positives are also in the note above. Physical Examination ([facility]) Blood pressure 136/70, pulse 85, temperature 98.4 F (36.9 C), resp. rate 18, height 1.88 m (6' 2 ),weight 117.9 kg (260 lb), SpO2 96%. Physical Exam Constitutional: General: He is not in acute distress. Appearance: Normal appearance. He is obese. He is not ill-appearing, toxic- appearing or diaphoretic. HENT: Head: Normocephalic and atraumatic. Right Ear: External ear normal. Left Ear: External ear normal. Nose: Nose normal. No congestion or rhinorrhea. Mouth/Throat: Mouth: Mucous membranes are moist. Pharynx: Oropharynx is clear. No oropharyngeal exudate or posterior oropharyngeal erythema. Eyes: General: No scleral icterus. Right eye: No discharge. Left eye: No discharge. Conjunctiva/sclera: Conjunctivae normal. Neck: Vascular: No carotid bruit. Cardiovascular: Rate and Rhythm: Normal rate and regular rhythm. Pulses: Normal pulses. Heart sounds: Normal heart sounds. No murmur heard. Pulmonary: Effort: Pulmonary effort is normal. No respiratory distress. Breath sounds: No stridor. No wheezing, rhonchi or rales. Chest: Chest wall: No tenderness. Abdominal: General: Abdomen is flat. Bowel sounds are normal. There is no distension. Tenderness: There is no abdominal tenderness. Musculoskeletal: General: No swelling. Normal range of motion. Cervical back: Normal range of motion. No rigidity. No muscular tenderness. Right lower leg: No edema. Left lower leg: No edema. Skin: General: Skin is warm and dry. Capillary Refill: Capillary refill takes less than 2 seconds. Coloration: Skin is not jaundiced or pale. Findings: No bruising, erythema, lesion or rash. Neurological: General: No focal deficit present. Mental Status: He is alert. Mental status is at baseline. Psychiatric: Mood and Affect: Mood normal. Behavior: Behavior normal. Thought Content: Thought content normal. 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 L4-L5, L5-S1 Obesity Rotator cuff syndrome of left shoulder Squamous cell carcinoma of oral mucosa Between teeth #8 and #9 Tendon tear Left Quad Unspecified atrial fibrillation [4] Past Surgical History: Procedure Laterality Date HERNIA REPAIR HIP REPLACEMENT Right REPAIR MUSCLE QUADRICEPS Left [5] Social History Socioeconomic History Marital status: Single Tobacco Use Smoking status: Never Smokeless tobacco: Never Vaping Use Vaping status: Never Used Substance and Sexual Activity Alcohol use: Yes Alcohol/week: 3.0 standard drinks of alcohol Types: 3 Standard drinks or equivalent per week Drug use: Never Sexual activity: Yes [facility] operation note* Felicia Mchugh RN - 03/25/2025 5:39 AM EDT Patient denies hx of chemo and radiation. Patient denies metal or foreign objects in body EXCEPT R hip replacement. Patient denies hx of seizure or stroke. [facility]09-15-2025 History and physical note* JAIR Rajan - 03/18/2025 12:45 PM EDT [facility] Date of Surgery: 03/25/2025 Surgeon: Brandin De La Cruz / Martina Ahn Pre-Op Diagnosis: Primary oral squamous cell carcinoma Planned Procedure: WLE ANTERIOR PALATE AND GINGIVA, TOOTH EXTRACTIONS, BONE DAPHNEY, POSSIBLE INFERIOR MAXILLECTOMY, OBTURATOR PLACEMENT Anesthesia Type: planned for General SUMMARY AND RECOMMENDATIONS Pending labs, CT chest 03/18/2025 {Strict NPO Diet recommended secondary to ASA 3 or more Smith Leroy is a 60 y.o. year old patient with a history the following diagnoses which increase his risk for perioperative complications. he being referred for pre operative evaluation and optimization. The relative status of the medical conditions are further explained in this note. 1. Preop exam for internal medicine 2. Primary oral squamous cell carcinoma ANESTHESIA and AIRWAY Anesthesia alerts: SENA Risk, PONV Personal history of problems related to anesthesia (ex.Malignant Hyperthermia): no Family History of problems related to anesthesia (ex.Malignant Hyperthermia: no Pacer/AICD: no Parenteral Access: no Glaucoma: last ophthalmology exam has been a few years. Nerve stimulators (DBS, PNS, SCS): no Mediport: no SENA: no STOP-BANG Risk Assessment Do you snore - Yes Are you frequently tired during the day? - No Have you been observed gasping or choking while asleep? - No Do you have high blood pressure? - No Age more than 50? - Yes Gender male? - Yes Neck circumference greater than 40 cm? - Yes Neck Circumference (cm): 47 BMI more then 35? - No Body mass index is 33.38 kg/m . Mallampati class - 2 TM Distance - 3 FB Oral Opening - 3FB Teeth - normal dentition for age Cervical range of motion - within normal limits Neck circumference - Neck Circumference (cm): 47 Allergies and adverse drug reactions Allergies[1] ANESTHESIA/AIRWAY ASSESSMENT AND PLAN- # Anesthesia Alerts as above if applicable # Patient is at Intermediate (3-4) risk for SENA # Previous Airway Details below (if available) CARDIOVASCULAR Do you take Aspirin or other antiplatelet agents? yes -2/2 Prevention. Patient advised to hold ASA 7 days prior to surgery Do you take anti-coagulations? no Beta Mary: no Patient denies a history of cardiac events or TX. Denies chest pain with ambulation or ADLs around the house. Denies palpitations, denies LE edema, denies orthopnea # Functional status - METS: Moderate: 4-7 METS Able to walk 2 city blocks with no GILES or chest pain. 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 CARDIAC TESTING and REVIEW OF PREVIOUS CARDIAC TESTING/IMAGING EKG due to AGE and NATURE OF PROCEDURE ECG: personally reviewed ASSESSMENT AND PLAN- BP Readings from Last 3 Encounters: 03/18/25 136/70 03/18/25 (!) 169/96 03/14/25 163/87 # Pre-operative Risk Evaluation: Patient Meets the Following RCRI Criteria (RCRI): None: 0 criteria suggesting a 3.9% risk of major cardiac events or within 30 days. Smith Leroy is at a Low risk based on the RCRI above. Patient can achieve METS > 4. Per ACC/AHAguidelines, the patient requires no further testing at this time. The patient is at elevated risk for the following perioperative complications not captured by the RCRI: N/A PULMONARY PULMONARY TESTING AND REVIEW OF RECORDS if any CT chest 03/18/2025 ASSESSMENT AND PLAN: Recommendations to minimize the risk of pulmonary complications: - Aggressive pulmonary toilet (incentive spirometry, flutter valve, deep coughing), judicious use of analgesia, early ambulation when feasible from a postoperative perspective, pharmacologic DVT prophylaxis if possible SOCIAL/SUBSTANCE USE HISTORY Tobacco Use History[2] Social History Substance and Sexual Activity Alcohol Use Yes Alcohol/week: 3.0 standard drinks of alcohol Types: 3 Standard drinks or equivalent per week Social History Substance and Sexual Activity Drug Use Never Does the patient Vape? no ASSESSMENT AND PLAN: # Alcohol use -Advised to abstain from ETOH 2 days prior to procedure. HEMATOLOGY History of DVT/PE - no In case of surgeons plan or unforseen emergency, are you okay with receiving blood products? - Yes Patient has not received blood transfusions in the past 90 days Have you ever been diagnosed with any bleeding disorders in the past (Hemophilia A or B, Von Willebrand Disease)? - No ASSESSMENT AND PLAN Recommend standard VTE prophylaxis post operatively DIABETES and ENDOCRINOLOGY ASSESSMENT AND PLAN N/A No results found for: HGBA1C NEUROLOGY ASSESSMENT AND PLAN # ADDITIONAL DIAGNOSES OF CONCERN # Primary oral squamous cell carcinoma Acute/Stable - planned for surgery above ADVANCED CARE PLANNING (for elderly and frail patients) Code Status: Not on file MEDICATIONS Current Outpatient Medications Medication Sig Aspirin [address] tablet Take 1 tablet by mouth. (Patient taking differently: Take 1 tablet by mouth daily every morning.) chlorhexidine 0.12 % Solution oral solution SWAB AREA 3 TIMES A DAY SPIT OUT DO NOT SWALLOW (Patient taking differently: Swish and spit 15 mL 2 times daily.) Multiple Vitamin (MULTI-VITAMINS PO) Take by mouth. (Patient taking differently: Take 1 tablet by mouth daily every morning.) [place]-3 Fatty Acids (OMEGA 3 FISH OIL PO) Take 1,000 mg by mouth. (Patient taking differently: Take1,000 mg by mouth daily every morning.) hydroCODone-acetaminophen 5-325 MG tablet take 1 tablet by mouth every 4-6 hours as needed for pain(Patient not taking: Reported on 03/18/2025) Medication A/P - Instructions for preoperative medications given to the patient in AVS. LABS Orders Placed This Encounter CBC, EDIF, PLATELET CHEM 6 (LYTES, BUN CREA) CA ECG, CLINIC PERFORMED Lab A/P - Thank you for allowing us to participate in the care of Smith Leroy. Total time spent on the day of patient's visit was 17 minutes. This includes but is not limited to time spent preparing to see the patient, precharting, reviewing outside medical records, time spent in the patient's room doing a history and physical exam along with medication education, ordering lab test and requesting medical information as well as interpreting lab results and testing completed at [facility] and outside facilities through [facility] Everywhere. All the labs reviewed have been summarized and included in my history above. Note to patient: The Cures Act makes medical notes like these available to patients inthe interest of transparency. However, be advised this is a medical document. It is intended as [id number] communication. It is written in medical language and may contain abbreviations or verbiagethat are unfamiliar. It may appear blunt or direct. Medical documents are intended to carry relevant information, facts as evident, and the clinical opinion of the practitioner. SkyJam dictation software may have been used to write this note. Please excuse any errors that may have occurred as a result of the dictation. Deborah Turner, WOOD TYPE FINISHER-REFINERY OPERATOR [employer] [facility] [address] Review of Systems (OSUROS) Review of Systems Constitutional: Negative for chills, fatigue and fever. HENT: Positive for dental problem (cold sensitivity to bilateral upper central incisors). Negative for congestion, ear pain, hearing loss, rhinorrhea, sneezing, sore throat and trouble swallowing. Eyes: Negative for pain. Respiratory: Negative for apnea, cough, chest tightness and shortness of breath. Cardiovascular: Negative for chest pain and palpitations. Gastrointestinal: Negative for abdominal pain, constipation, diarrhea, nausea and vomiting. Endocrine: Negative for polyuria. Genitourinary: Negative for difficulty urinating, dysuria, frequency, hematuria and urgency. Musculoskeletal: Negative for back pain, gait problem and neck pain. Skin: Negative for rash and wound. Allergic/Immunologic: Negative for food allergies. Neurological: Negative for seizures, syncope and weakness. Hematological: Does not bruise/bleed easily. Psychiatric/Behavioral: Negative for confusion and sleep disturbance. The patient is not nervous/anxious. All other pertinent positives are also in the note above. Physical Examination (PHYSEXAM) Blood pressure 136/70, pulse 85, temperature 98.4 F (36.9 C), resp. rate 18, height 1.88 m (6' 2 ),weight 117.9 kg (260 lb), SpO2 96%. Physical Exam Constitutional: General: He is not in acute distress. Appearance: Normal appearance. He is obese. He is not ill-appearing, toxic- appearing or diaphoretic. HENT: Head: Normocephalic and atraumatic. Right Ear: External ear normal. Left Ear: External ear normal. Nose: Nose normal. No congestion or rhinorrhea. Mouth/Throat: Mouth: Mucous membranes are moist. Pharynx: Oropharynx is clear. No oropharyngeal exudate or posterior oropharyngeal erythema. Eyes: General: No scleral icterus. Right eye: No discharge. Left eye: No discharge. Conjunctiva/sclera: Conjunctivae normal. Neck: Vascular: No carotid bruit. Cardiovascular: Rate and Rhythm: Normal rate and regular rhythm. Pulses: Normal pulses. Heart sounds: Normal heart sounds. No murmur heard. Pulmonary: Effort: Pulmonary effort is normal. No respiratory distress. Breath sounds: No stridor. No wheezing, rhonchi or rales. Chest: Chest wall: No tenderness. Abdominal: General: Abdomen is flat. Bowel sounds are normal. There is no distension. Tenderness: There is no abdominal tenderness. Musculoskeletal: General: No swelling. Normal range of motion. Cervical back: Normal range of motion. No rigidity. No muscular tenderness. Right lower leg: No edema. Left lower leg: No edema. Skin: General: Skin is warm and dry. Capillary Refill: Capillary refill takes less than 2 seconds. Coloration: Skin is not jaundiced or pale. Findings: No bruising, erythema, lesion or rash. Neurological: General: No focal deficit present. Mental Status: He is alert. Mental status is at baseline. Psychiatric: Mood and Affect: Mood normal. Behavior: Behavior normal. Thought Content: Thought content normal. 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 L4-L5, L5-S1 Obesity Rotator cuff syndrome of left shoulder Squamous cell carcinoma of oral mucosa Between teeth #8 and #9 Tendon tear Left Quad Unspecified atrial fibrillation [4] Past Surgical History: Procedure Laterality Date HERNIA REPAIR HIP REPLACEMENT Right REPAIR MUSCLE QUADRICEPS Left [5] Social History Socioeconomic History Marital status: Single Tobacco Use Smoking status: Never Smokeless tobacco: Never Vaping Use Vaping status: Never Used Substance and Sexual Activity Alcohol use: Yes Alcohol/week: 3.0 standard drinks of alcohol Types: 3 Standard drinks or equivalent per week Drug use: Never Sexual activity: Yes Partners: Female [facility]09-15-2025 History and physical note* JAIR Rajan - 03/18/2025 12:45 PM EDT PREOPERATIVE ASSESSMENT H&P [facility], Nicole Gloria Name: Smith Leroy Date of Surgery: 03/25/2025 Surgeon: Brandin De La Cruz / Martina Ahn Pre-Op Diagnosis: Primary oral squamous cell carcinoma Planned Procedure: WLE ANTERIOR PALATE AND GINGIVA, TOOTH EXTRACTIONS, BONE DAPHNEY, POSSIBLE INFERIOR MAXILLECTOMY, OBTURATOR PLACEMENT Anesthesia Type: planned for General SUMMARY AND RECOMMENDATIONS Pending labs, CT chest 03/18/2025 {Strict NPO Diet recommended secondary to ASA 3 or more Smith Leroy is a 60 y.o. year old patient with a history the following diagnoses which increase his risk for perioperative complications. he being referred for pre operative evaluation and optimization. The relative status of the medical conditions are further explained in this note. 1. Preop exam for internal medicine 2. Primary oral squamous cell carcinoma ANESTHESIA and AIRWAY Anesthesia alerts: SENA Risk, PONV Personal history of problems related to anesthesia (ex.Malignant Hyperthermia): no Family History of problems related to anesthesia (ex.Malignant Hyperthermia: no Pacer/AICD: no Parenteral Access: no Glaucoma: last ophthalmology exam has been a few years. Nerve stimulators (DBS, PNS, SCS): no Mediport: no SENA: no STOP-BANG Risk Assessment Do you snore - Yes Are you frequently tired during the day? - No Have you been observed gasping or choking while asleep? - No Do you have high blood pressure? - No Age more than 50? - Yes Gender male? - Yes Neck circumference greater than 40 cm? - Yes Neck Circumference (cm): 47 BMI more then 35? - No Body mass index is 33.38 kg/m . Mallampati class - 2 TM Distance - 3 FB Oral Opening - 3FB Teeth - normal dentition for age Cervical range of motion - within normal limits Neck circumference - Neck Circumference (cm): 47 Allergies and adverse drug reactions Allergies[1] ANESTHESIA/AIRWAY ASSESSMENT AND PLAN- # Anesthesia Alerts as above if applicable # Patient is at Intermediate (3-4) risk for SENA # Previous Airway Details below (if available) CARDIOVASCULAR Do you take Aspirin or other antiplatelet agents? yes -2/2 Prevention. Patient advised to hold ASA 7 days prior to surgery Do you take anti-coagulations? no Beta Mary: no Patient denies a history of cardiac events or TX. Denies chest pain with ambulation or ADLs around the house. Denies palpitations, denies LE edema, denies orthopnea # Functional status - METS: Moderate: 4-7 METS Able to walk 2 city blocks with no GILES or chest pain. 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 CARDIAC TESTING and REVIEW OF PREVIOUS CARDIAC TESTING/IMAGING EKG due to AGE and NATURE OF PROCEDURE ECG: personally reviewed ASSESSMENT AND PLAN- BP Readings from Last 3 Encounters: 03/18/25 136/70 03/18/25 (!) 169/96 03/14/25 163/87 # Pre-operative Risk Evaluation: Patient Meets the Following RCRI Criteria (RCRI): None: 0 criteria suggesting a 3.9% risk of major cardiac events or within 30 days. Smith Leroy is at a Low risk based on the RCRI above. Patient can achieve METS > 4. Per ACC/AHAguidelines, the patient requires no further testing at this time. The patient is at elevated risk for the following perioperative complications not captured by the RCRI: N/A PULMONARY PULMONARY TESTING AND REVIEW OF RECORDS if any CT chest 03/18/2025 ASSESSMENT AND PLAN: Recommendations to minimize the risk of pulmonary complications: - Aggressive pulmonary toilet (incentive spirometry, flutter valve, deep coughing), judicious use of analgesia, early ambulation when feasible from a postoperative perspective, pharmacologic DVT prophylaxis if possible SOCIAL/SUBSTANCE USE HISTORY Tobacco Use History[2] Social History Substance and Sexual Activity Alcohol Use Yes Alcohol/week: 3.0 standard drinks of alcohol Types: 3 Standard drinks or equivalent per week Social History Substance and Sexual Activity Drug Use Never Does the patient Vape? no ASSESSMENT AND PLAN: # Alcohol use -Advised to abstain from ETOH 2 days prior to procedure. HEMATOLOGY History of DVT/PE - no In case of surgeons plan or unforseen emergency, are you okay with receiving blood products? - Yes Patient has not received blood transfusions in the past 90 days Have you ever been diagnosed with any bleeding disorders in the past (Hemophilia A or B, Von Willebrand Disease)? - No ASSESSMENT AND PLAN Recommend standard VTE prophylaxis post operatively DIABETES and ENDOCRINOLOGY ASSESSMENT AND PLAN N/A No results found for: HGBA1C NEUROLOGY ASSESSMENT AND PLAN # ADDITIONAL DIAGNOSES OF CONCERN # Primary oral squamous cell carcinoma Acute/Stable - planned for surgery above ADVANCED CARE PLANNING (for elderly and frail patients) Code Status: Not on file MEDICATIONS Current Outpatient Medications Medication Sig Aspirin [address] tablet Take 1 tablet by mouth. (Patient taking differently: Take 1 tablet by mouth daily every morning.) chlorhexidine 0.12 % Solution oral solution SWAB AREA 3 TIMES A DAY SPIT OUT DO NOT SWALLOW (Patient taking differently: Swish and spit 15 mL 2 times daily.) Multiple Vitamin (MULTI-VITAMINS PO) Take by mouth. (Patient taking differently: Take 1 tablet by mouth daily every morning.) Fairbury-3 Fatty Acids (OMEGA 3 FISH OIL PO) Take 1,000 mg by mouth. (Patient taking differently: Take1,000 mg by mouth daily every morning.) hydroCODone-acetaminophen 5-325 MG tablet take 1 tablet by mouth every 4-6 hours as needed for pain(Patient not taking: Reported on 03/18/2025) Medication A/P - Instructions for preoperative medications given to the patient in AVS. LABS Orders Placed This Encounter CBC, EDIF, PLATELET CHEM 6 (LYTES, BUN CREA) CA ECG, CLINIC PERFORMED Lab A/P - Thank you for allowing us to participate in the care of Smith Leroy. Total time spent on the day of patient's visit was 17 minutes. This includes but is not limited to time spent preparing to see the patient, precharting, reviewing outside medical records, time spent in the patient's room doing a history and physical exam along with medication education, ordering lab test and requesting medical information as well as interpreting lab results and testing completed at [facility] and outside facilities through Care Everywhere. All the labs reviewed have been summarized and included in my history above. Note to patient: The Cures Act makes medical notes like these available to patients inthe interest of transparency. However, be advised this is a medical document. It is intended as [id number] communication. It is written in medical language and may contain abbreviations or verbiagethat are unfamiliar. It may appear blunt or direct. Medical documents are intended to carry relevant information, facts as evident, and the clinical opinion of the practitioner. SkyJam dictation software may have been used to write this note. Please excuse any errors that may have occurred as a result of the dictation. Deborah Turner, WOOD TYPE FINISHER-REFINERY OPERATOR [employer] [facility] [address] Review of Systems (OSUROS) Review of Systems Constitutional: Negative for chills, fatigue and fever. HENT: Positive for dental problem (cold sensitivity to bilateral upper central incisors). Negative for congestion, ear pain, hearing loss, rhinorrhea, sneezing, sore throat and trouble swallowing. Eyes: Negative for pain. Respiratory: Negative for apnea, cough, chest tightness and shortness of breath. Cardiovascular: Negative for chest pain and palpitations. Gastrointestinal: Negative for abdominal pain, constipation, diarrhea, nausea and vomiting. Endocrine: Negative for polyuria. Genitourinary: Negative for difficulty urinating, dysuria, frequency, hematuria and urgency. Musculoskeletal: Negative for back pain, gait problem and neck pain. Skin: Negative for rash and wound. Allergic/Immunologic: Negative for food allergies. Neurological: Negative for seizures, syncope and weakness. Hematological: Does not bruise/bleed easily. Psychiatric/Behavioral: Negative for confusion and sleep disturbance. The patient is not nervous/anxious. All other pertinent positives are also in the note above. Physical Examination (PHYSEXAM) Blood pressure 136/70, pulse 85, temperature 98.4 F (36.9 C), resp. rate 18, height 1.88 m (6' 2 ),weight 117.9 kg (260 lb), SpO2 96%. Physical Exam Constitutional: General: He is not in acute distress. Appearance: Normal appearance. He is obese. He is not ill-appearing, toxic- appearing or diaphoretic. HENT: Head: Normocephalic and atraumatic. Right Ear: External ear normal. Left Ear: External ear normal. Nose: Nose normal. No congestion or rhinorrhea. Mouth/Throat: Mouth: Mucous membranes are moist. Pharynx: Oropharynx is clear. No oropharyngeal exudate or posterior oropharyngeal erythema. Eyes: General: No scleral icterus. Right eye: No discharge. Left eye: No discharge. Conjunctiva/sclera: Conjunctivae normal. Neck: Vascular: No carotid bruit. Cardiovascular: Rate and Rhythm: Normal rate and regular rhythm. Pulses: Normal pulses. Heart sounds: Normal heart sounds. No murmur heard. Pulmonary: Effort: Pulmonary effort is normal. No respiratory distress. Breath sounds: No stridor. No wheezing, rhonchi or rales. Chest: Chest wall: No tenderness. Abdominal: General: Abdomen is flat. Bowel sounds are normal. There is no distension. Tenderness: There is no abdominal tenderness. Musculoskeletal: General: No swelling. Normal range of motion. Cervical back: Normal range of motion. No rigidity. No muscular tenderness. Right lower leg: No edema. Left lower leg: No edema. Skin: General: Skin is warm and dry. Capillary Refill: Capillary refill takes less than 2 seconds. Coloration: Skin is not jaundiced or pale. Findings: No bruising, erythema, lesion or rash. Neurological: General: No focal deficit present. Mental Status: He is alert. Mental status is at baseline. Psychiatric: Mood and Affect: Mood normal. Behavior: Behavior normal. Thought Content: Thought content normal. 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 L4-L5, L5-S1 Obesity Rotator cuff syndrome of left shoulder Squamous cell carcinoma of oral mucosa Between teeth #8 and #9 Tendon tear Left Quad Unspecified atrial fibrillation [4] Past Surgical History: Procedure Laterality Date HERNIA REPAIR HIP REPLACEMENT Right REPAIR MUSCLE QUADRICEPS Left [5] Social History Socioeconomic History Marital status: Single Tobacco Use Smoking status: Never Smokeless tobacco: Never Vaping Use Vaping status: Never Used Substance and Sexual Activity Alcohol use: Yes Alcohol/week: 3.0 standard drinks of alcohol Types: 3 Standard drinks or equivalent per week Drug use: Never Sexual activity: Yes [facility]* Patient Instructions* Anny Escobar MA - 03/18/2025 12:45 PM EDT PRIOR TO SURGERY INSTRUCTIONS Please follow these instructions prior to surgery to help us minimize delays and complications to your surgery THE FOLLOWING MEDICATIONS LABS, STUDIES, AND CONSULTATIONS WERE ORDERED TODAY: Orders Placed This Encounter CBC, EDIF, PLATELET CHEM 6 (LYTES, BUN CREA) CA ECG, CLINIC PERFORMED PREOPERATIVE MEDICATION INSTRUCTIONS Below are instructions for what to do with your medicines before your surgery/procedure. Take the medications marked take the morning of surgery/procedure with a sip of water. Please follow this table below for instructions on which medications to hold prior to surgery If you have a change in daily medications prior to surgery/procedure, [facility] at [phone]. Current Outpatient Medications Medication Sig Instructions Aspirin [address] tablet Take 1 tablet by mouth. (Patient taking differently: Take 1 tablet by mouth daily every morning.) HOLD 7 days prior to surgery chlorhexidine 0.12 % Solution oral solution SWAB AREA 3 TIMES A DAY SPIT OUT DO NOT SWALLOW (Patient taking differently: Swish and spit 15 mL 2 times daily.) Do not take morning of surgery Multiple Vitamin (MULTI-VITAMINS PO) Take by mouth. (Patient taking differently: Take 1 tablet by mouth daily every morning.) HOLD 2 weeks prior to surgery Fairbury-3 Fatty Acids (OMEGA 3 FISH OIL PO) Take 1,000 mg by mouth. (Patient taking differently: Take1,000 mg by mouth daily every morning.) HOLD 2 weeks prior to surgery DO NOT take Excedrin, ibuprofen, Advil, Voltaren (Diclofenac), Motrin, naproxen, or Aleve, Mobic (Meloxicam) for the 7 days before surgery unless your surgeon has instructed you otherwise. Acetaminophen (Tylenol) is ok to take up until the day of surgery for pain control OTHER MEDICATIONS: If you are on or have recently been started on any injectable medications for diabetes or weight loss (see list below), please call our office at [phone] for instructions on what to do with those medications. Your surgery is likely to get rescheduled or delayed if this medication is taken within a week of your surgery. exenatide (brand names Byetta and Bydureon) liraglutide (Victoza for diabetes, Saxenda for obesity) albiglutide (Tanzeum) dulaglutide (Trulicity) lixisenatide (Adlyxin) semaglutide (Ozempic and Rybelsus for diabetes, Wegovy for obesity) tirzepatide (dual GLP-1 and GIP agonist; Mounjaro for diabetes, Zepbound for obesity) VITAMINS & HERBALS Do NOT take herbal medications or vitamins such as, but not limited to, fish oil (Fairbury-3), garlic,glucosamine -chondroitin, gingko, ginseng, probiotics, or multivitamins) 2 weeks before surgery unless your surgeon instructed differently. If your Medical Doctor has prescribed vitamins or herbal supplements due to a medical condition such as malabsorption issues, only hold the day of surgery. DIET INSTRUCTIONS: NO food or drink after 11 pm the night before surgery except for enough water to take your medications. (No Candy, Mints and/or Gum). If your surgeon has given you special shakes to take prior to surgery, it is okay to take them and follow those instructions OTHER PREOPERATIVE INSTRUCTIONS: To lessen your chance of getting an infection after your surgery, you will need to wash your skin with a special soap called 4% Chlorhexidine Gluconate (CHG) before your surgery. Your nurse has givenyou CHG soap today and written instructions; Getting Your Skin Ready for Surgery . Please review the instructions carefully prior to your surgery. Patient identified as being at high risk for sleep apnea. Patient education material for obstructive sleep apnea given and reviewed. PREOPERATIVE INSTRUCTIONS: If additional testing has been ordered by [facility] outside of what can be done today after your visit, we will contact you with an appointment date, location and time for this testing. Please complete this testing as it would be vital to proceeding with your surgery. Any delays in testing could result in delays in your surgery. Please bring remote/s for any devices that you may have implanted like ICDs, pacemakers, nerve stimulators (deep brain, vagus, pudendal, hypoglossal, sacral or spinal) Do not wear any jewelry, watches, rings, hairpieces, makeup, dentures, glasses or contact lenses onday of surgery. Do not wear artificial nails or nail south korean the day of surgery. Do NOT bring your hearing aids or dentures or partials with you into surgery. They may get lost. Give them to someone to bring to you after surgery Shower the night before and the morning of surgery. If we have provided you with a special soap, follow those directions. AVOID using surgical soap around eyes, ears, nose, mouth, and genital areas Avoid any creams, ointments or deodorant on the morning of surgery Do not shave, or pluck hair from anywhere near the surgical area for 1 week prior to surgery. [place] your teeth and rinse your mouth the morning of surgery. Avoid Swallowing toothpaste. DO NOT DRINK ALCOHOL for at least 48 hours prior to surgery. It is best if you stop drinking alcohol 4 weeks before surgery. If you feel that you are dependent on alcohol, please contact your doctorsor follow instructions given to you by our preoperative clinic on how to safely stop. AVOID USING NICOTINE or TOBACCO of any form around the time of surgery. This includes but not limited to: Smoking, Cigarettes, Vaping, Chewing/Rubbing Tobacco and Nicorette Gum. Nicotine can delay wound healing. We recommend that you stop use 4-6 weeks prior to surgery because these products can interfere with your wounds healing. At a minimum, there should be no nicotine in your system within 24hours or your surgery could be cancelled. AVOID CANNABIS/MARIJUANA USE for at least 72 hours prior to surgery. You can continue use if you are taking for a seizure disorder. Arriving to surgery intoxicated or under the influence of recreational drugs could result in your surgery being cancelled If you have a cold or flu symptoms, recently hospitalized or new diagnosis, please contact your surgeon s office before your procedure. If you become ill, develop a fever, cough, develop any type of infection, or are admitted to the hospital for any reason within 14 days of your scheduled surgery, please notify our team ([facility] clinic)and your surgeon's office. You may need to have your surgery moved, as we would not want to put youat risk for complications, You MUST arrange for a responsible adult to drive you to your procedure, stay for the surgery, staywith you if an extended stay after surgery is needed, listen to discharge instructions, and drive you home after surgery, otherwise your surgery may be rescheduled. AVS/SH [facility] Preoperative Testing Clinic Nicole Castro [phone] documented in this [facility]09-11-2025 History of Present illness Narrative* Martina Mills DMD - 03/14/2025 11:00 AM EDT Images from the original note were not included. MAXILLOFACIAL PROSTHODONTICS CLINIC Smith Leroy is 60 y.o. male and is a new patient of [facility]: Maxillofacial Prosthodontics Clinic. He was referred by Theron Cooney DDS (OMFS in private practice in [place], [place]). [facility] E[facility] attending surgeon is Brandin Rivera MD PhD. She was referred by Brandin Rivera MD, PhD for Dental Prosthetic Services: Surgical Obturator. 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 Path by [facility] Pathology (Roman Peña MD) came back as: Invasive SCC, moderately differentiated. She presents for INITIAL MAXILLOFACIAL PROSTHETICS CONSULT: Immediate Surgical Obturator Chief Complaint Patient presents in company of his Nicole. He complains of mild upper gums pain. New Patient Pre-surgical Review of Systems Ears/Nose/Mouth/Throat Hearing loss or ringing: NO Earache or drainage: NO Chronic sinus problem or rhinitis: NO Nose bleeds: NO Mouth sores: NO Tooth/dental pain NO Bleeding gingiva: NO Bad breath or bad taste: NO Sore throat or voice change: NO Swollen glands in neck: NO Cardiovascular Heart trouble:YES, afib Heart stent or devices: NO Palpitation: NO Shorthness of breath with walking or lying flat: NO Swelling of feet, ankles or hands: NO Blood thinners: NO SKELETAL History of hip or knee replacements:YES, right hip replacement History of bone conditions or use of biphosphonates: NO History of trauma, placement of metal devices in the body: NO Medical History Past Medical History[1] Surgical History Past Surgical History[2] Social History Social History Socioeconomic History Marital status: Single Spouse name: Not on file Number of children: Not on file Years of education: Not on file Highest education level: Not on file Occupational History Not on file Tobacco Use Smoking status: Never Smokeless tobacco: Never Vaping Use Vaping status: Never Used Substance and Sexual Activity Alcohol use: Yes Alcohol/week: 3.0 standard drinks of alcohol Types: 3 Standard drinks or equivalent per week Drug use: Never Sexual activity: Yes Partners: Female Other Topics Concern Not on file Social History Narrative Not on file Social Drivers of Health Financial Resource Strain: Not on file Food Insecurity: Not on file Transportation Needs: Not on file Physical Activity: Not on file Stress: Not on file Social Connections: Not on file Personal Safety: Not on file Housing Stability: Not on file Current Medications Current Outpatient Medications Medication Sig Aspirin [address] tablet Take 1 tablet by mouth. chlorhexidine 0.12 % Solution oral solution SWAB AREA 3 TIMES A DAY SPIT OUT DO NOT SWALLOW hydroCODone-acetaminophen 5-325 MG tablet take 1 tablet by mouth every 4-6 hours as needed for pain Multiple Vitamin (MULTI-VITAMINS PO) Take by mouth. [place]-3 Fatty Acids (OMEGA 3 FISH OIL PO) Take 1,000 mg by mouth. Current Diagnosis Problem List[3] Encounter Diagnosis Encounter Diagnoses Name Primary? 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 The needs for adjuvant radiation is to be determined, after surgical path results are obtained. He is cleared from a dental standpoint, if he ends up needed it. Examination Vitals Blood pressure 163/87, pulse 81, temperature 98.4 F (36.9 C), temperature source Temporal, resp. rate 16, weight 116.2 kg (256 lb 1.6 oz), SpO2 98%. Documented vital signs above from today's visit reviewed. Reviewed medications. Evaluation includedthe face, lip, and oral cavity, tongue, floor of mouth, hard palate, soft palate, submandibular andrevealed normal dentition for age, good oral hygiene, and SCC of the maxillary anterior gums. Face: Symmetric Oral Pathology: NONE Dental infection: NONE Missing dentition: # 1, 5, 12, 16, 17, 21, 28, and 32 Present dentition: # 2, 3, 4, 6, 7, 8, 9, 10, 11, 13, 14, 15, 18, 19, 20, 22, 23, 24, 25, 26, 27, 29, 30, and 31 Impacted: NONE History of wisdom teeth removal: Yes History of orthodontic treatment: No Dental implants: NONE Acquired defect: NONE Current prosthesis: NONE Hard palate: Normal, no mass or lesions. No palatal torus. Soft palate: Normal, no mass or lesions, raises bilaterally. Lingual alvolar ridge: Normal, mass or lesions. No lingual herminia. Bilateral lingual herminia Periodontium: normal. Inflammation: severe at maxillary gingiva #7-10. Plaque/calculus: mild Periodontal diagnosis: Overall Healthy Periodontium in mandible and posterior maxilla. SCC anteriormaxilla Caries & Caries Dx: No caries detected. Endodontically treated: NONE Restorations: Metallic restorations: Crowns: PFM #14, 30. Bridges:NONE. Amalgams: #2,3,4,19,20,31 Inter-incisal distance: Normal 51 mm or 3 fingers (Reference points: #8, 25) Saliva: Normal, good quantity and quality is mostly watery Tongue: Normal. Mobile and functional Speech: No current speech problem Dental imaging findings: Panorex and CBCT (Maxillary sinus clear bilaterally. Missing: # 1, 5, 12, 16, 17, 21, 28, and 32 . Alveolar bone loss localized to tooth #9 with ulcerative lesion. No caries.No periapical infection. Inferior cortex of mandible is intact. Inferior alveolar canal visible bilaterally. Normal shaped condyles.) Assessment Smith Leroy presents for Maxillofacial Prosthetics Consult for Immediate Surgical Obturator (ISO) He is partially edentulous. Missing all 4 wisdom teeth (#1,16,17,32) and all first premolar teeth (#5,12,21,28). He has good oral hygiene. Clinical presentation: Maxilla: SCC is presenting as a large ulcerative lesion at the facial gingiva of tooth #9 and extends laterally to the adjacent teeth #7,8,10. The ulcerative lesion extends also at the interproximal gingiva into premaxillary palatal gingiva of teeth #6,7,8,9,10,11. There is leukoplakia halo at the crestal gingiva of teeth #6,7,8. The posterior molars and premolars look normal, healthy. Most likely patient will loose teeth #6,7,8,9,10. He will need an immediate surgical obturator and I will include denture teeth to maintain his speech, appearance, and psychological well being. Mandible: Normal teeth and gingiva. The left molar #18 has lost its prior dental sikhism, not decayed. This tooth can be kept and he can get a crown at a later time with his local dentist. Radiographic presentation: Maxilla:Bony erosion of the maxillary bone above tooth #9 and at the palatal bone corresponding to the incisive canal. Mandible: Normal alveolar bone around mandibular teeth. Today 03/14/25 I made the final impressions for the immediate surgical obturator. Irreversible hydrocolloid (alginate) in disposable trays were used for impressions. Shade of teeth are B1 (Blueline, Ivoclar). I will fabricate the obturator with denture teeth #6-11. Case to be discussed with Dr Rivera. Educated patient regarding surgery and immediate surgical obturator. I will deliver ISO at time of tumor ablation and he will wear this without removal for 1 week. At this post-op appt I will unpack the defect and modify the obturator. He is established with a local dentist Lucía Dee DDS in [place], [place]. He has been established there for past 6 years. His last dental vist was 3 months ago. He presents with good oral hygiene and does not need any pre-radiation dental work. He is cleared for adjuvant radiation if needed in the near future. All other teeth Plan of Care I.Pre-surgical Maxillofacial Prosthetics: Immediate surgical obturator CPT 01031- impressions made on 03/14/25 II.Post-surgical Maxillofacial Prosthetics Temporary/interim obturator CPT 89350 Definitive obturator CPT 77843 General Dentistry Care with local dentist Name: Dr. Lucía Dee DDS Address: [address] [place] [address] [place] [address] Email: [email or web address] Treatment/Procedures performed today: Initial pre-surgical and pre-radiation dental exam Extraoral photos Intraoral photos Final impression for immediate surgical obturator (ISO) Dental Imaging: Panorex and CBCT scans Evaluation of Panorex and CBCT scans Patient education regarding obturator prosthesis Total time spent face to face with the patient today: 60 minutes, with over 50% of the face to facetime used for counseling or coordinating patient s care, not including the procedure. Disposition: Return for Delivery obturator in OR. 03/14/25 CLINICAL EXAM:Pre-surgical Normal mouth opening 51mm Squamous cell carcinoma maxillary gingiva 03/14/25 RADIOGRAPHIC EXAM: Pre-surgical PANORAMIC Thank you for allowing me to participate in the care of Smith Leroy Please feel free to contact me if you have any questions or concerns. 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 Lucía Dee DDS Address: [address] [place] [address] last dental visit: 12/13/24 Pt reports Pharmacy, medications, and allergies verified. Bryan Pt in company with - [employer] All data collected, documented, and reported to Dr. Mills. EMPERATRIZ Moran II [facility] Instructions* Patient Instructions* SHAKA Fraga - 03/14/2025 11:00 AM EDT Today you have seen Dr Mills for maxillofacial Prosthetics Consult prior to cancer resection to the upper anterior maxilla. She found that you have cancer involving teeth #7,8,9,10. You will loose teeth #7,8,9,10 and maybe also #11. She will discuss with Dr Rivera. She will make you an obturator with teeth so when you wake up from surgery you look normal. You will wear this obturator without been removed for [address] Mills will take it out in clinic and modify it. You will wear this obturator for a few months of healing. Shade:B1 Next visit: Delivery obturator in the OR [facility] Procedure note* Martina Mills DMD - 03/14/2025 11:00 AM EDTAssociated Order(s): CA IMPRESSION&PREPARATION SURGICAL OBTURATOR PROSTH Procedure(s): CA IMPRESSION&PREPARATION SURGICAL OBTURATOR PROSTH Pre-Procedure Diagnose(s): Primary squamous cell carcinoma of upper gingiva; S/P biopsy; Oral erythroplakia Post-Procedure Diagnose(s): Primary squamous cell carcinoma of upper gingiva; S/P biopsy; Oral erythroplakia Date of service: 03/14/25 IMMEDIATE SURGICAL OBTURATOR PROSTHESIS CPT 07955 The immediate surgical obturator (ISO) prosthesis is prescribed for patients who have acquired defects of the maxilla or hard or soft palate that communicate with the nasal cavity, maxillary sinus ornasopharynx. Patients have disruption in speech and swallowing as fluids and/or food is forced intothe nose/nasopharynx. Also the tongue cannot articulate against the palate. Speech sounds escape into the nasal cavity causing hypernasal speech. These patients require a special maxillofacial prosthesis called an obturator to restore the continuity of the maxilla/hard palate and separates the oraland nasal. This restores their speech and swallowing. This prosthesis is medically necessary and will be worn daily. Follow-up adjustments, relines, repairs and sometimes remakes of the prosthesis are required to assure adequate fit and function as oral tissues change with time. Smithbuffy Leroy presented today for CA: prep and impression for the immediate surgical obturator prosthesis. Irreversible hydrocolloid (alginate) in disposable trays were used for impressions. Impressionswere poured in type III dental stone. Shade of teeth are B1 (Blueline, Ivoclar). The prosthesis will be made with retentive clasp on molars #2,15 and to premolars #4,13. Denture teeth #6-11 will be placed. The prosthesis will be delivered at time of cancer surgery on 03/25/25. It will require additional appointments for adjustments of the prosthesis. [facility] Procedure note* Martina Mills DMD - 03/14/2025 11:00 AM EDTAssociated Order(s): CA IMPRESSION&PREPARATION SURGICAL OBTURATOR PROSTH Procedure(s): CA IMPRESSION&PREPARATION SURGICAL OBTURATOR PROSTH Pre-Procedure Diagnose(s): Primary squamous cell carcinoma of upper gingiva; S/P biopsy; Oral erythroplakia Post-Procedure Diagnose(s): Primary squamous cell carcinoma of upper gingiva; S/P biopsy; Oral erythroplakia Date of service: 03/14/25 IMMEDIATE SURGICAL OBTURATOR PROSTHESIS CPT 66322 The immediate surgical obturator (ISO) prosthesis is prescribed for patients who have acquired defects of the maxilla or hard or soft palate that communicate with the nasal cavity, maxillary sinus ornasopharynx. Patients have disruption in speech and swallowing as fluids and/or food is forced intothe nose/nasopharynx. Also the tongue cannot articulate against the palate. Speech sounds escape into the nasal cavity causing hypernasal speech. These patients require a special maxillofacial prosthesis called an obturator to restore the continuity of the maxilla/hard palate and separates the oraland nasal. This restores their speech and swallowing. This prosthesis is medically necessary and will be worn daily. Follow-up adjustments, relines, repairs and sometimes remakes of the prosthesis are required to assure adequate fit and function as oral tissues change with time. Smith Leroy presented today for CA: prep and impression for the immediate surgical obturator prosthesis. Irreversible hydrocolloid (alginate) in disposable trays were used for impressions. Impressionswere poured in type III dental stone. Shade of teeth are B1 (Blueline, Ivoclar). The prosthesis will be made with retentive clasp on molars #2,15 and to premolars #4,13. Denture teeth #6-11 will be placed. The prosthesis will be delivered at time of cancer surgery on 03/25/25. It will require additional appointments for adjustments of the prosthesis. documented in this [facility]09-11-[facility]25 History of Present illness Narrative* Hina Velasquez PA-C - 03/14/2025 9:00 AM EDT Images from the original note were not included. Chief Complaint: Oral cancer HPI: This patient is a 60 y[address] referred by Dr. Theron Cooney at [facility] for invasive SCC between teeth #8-9. He first noticed the lesion 1 year ago and mentioned it to his dentist at a cleaning. Observation was elected at that time and finally he had a biopsy in December showing severe dysplasia.Dr. Cooney performed an excision that showed SCC. No loose teeth. Pt denies odynophagia, otalgia, dsyphagia, weight loss. 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 Never used chewing tobacco. Past Medical History Past Medical History[1] Past Surgical History Past Surgical History[2] Social History Social History Socioeconomic History Marital status: Single Spouse name: Not on file Number of children: Not on file Years of education: Not on file Highest education level: Not on file Occupational History Not on file Tobacco Use Smoking status: Never Smokeless tobacco: Never Vaping Use Vaping status: Never Used Substance and Sexual Activity Alcohol use: Yes Alcohol/week: 3.0 standard drinks of alcohol Types: 3 Standard drinks or equivalent per week Drug use: Never Sexual activity: Yes Partners: Female Other Topics Concern Not on file Social History Narrative Not on file Social Drivers of Health Financial Resource Strain: Not on file Food Insecurity: Not on file Transportation Needs: Not on file Physical Activity: Not on file Stress: Not on file Social Connections: Not on file Personal Safety: Not on file Housing Stability: Not on file Family History Family History Problem Relation Age of Onset Other - Specify (Other - Specify) Mother Medications: Current Medications[3] Allergies: Oxycodone-acetaminophen Immunizations: Immunization History Administered Date(s) Administered 5265-2932 COVID-19 monovalent vaccine, AD26, Ilsa 0.5 ML 11/14/202020202794-1886 COVID-19 monovalent vaccine, mRNA, Moderna, 50 mcg/0.25 mL booster 07/13/2021 Review of Systems: Constitutional: Negative for fever, weight loss and weight gain. HENT: See HPI Cardiovascular: Negative for chest pain and dyspnea on exertion (Can climb up 2 floors). Respiratory: Is not experiencing shortness of breath. Gastrointestinal: Negative for nausea and vomiting. Neurological: Negative for headaches. Psychiatric: The patient is not nervous/anxious. Musculoskeletal: Denies muscle pain/weakness Heme/Lymph: Negative for lymph nodes, easy bruising Physical Exam Vital Signs: BP (!) 188/91 Pulse 75 Temp 97.2 F (36.2 C) (Temporal) Resp 20 Ht 1.88 m (6' 2 ) Wt 116.2 kg (256 lb 1.6 oz) SpO2 98% BMI 32.88 kg/m Smoking Status Never General: Well-developed, well-nourished. No distress. Communication and Voice: Clear pitch and clarity Respiratory Respiratory effort: Equal inspiration and expiration without stridor Cardiovascular Peripheral Vascular: Warm extremities with equal pulses Neuro: Patient oriented to person, place, and time; Appropriate mood and affect; Gait is intact with no imbalance; Cranial nerves II-XII are intact Head and Face Inspection: Normocephalic and atraumatic without mass or lesion Palpation: Facial skeleton intact without bony stepoffs Facial Strength: Facial motility symmetric and full bilaterally Eyes: PERRLA. No nystagmus with normal extraocular motion bilaterally ENT Pinna: External ear intact and fully developed External canal: Canal is patent with intact skin Tympanic Membrane: Clear External nose: No scar or anatomic deformity Internal Nose: Septum intact and midline. No edema, polyp, or rhinorrhea. TMJ: No pain to palpation with full mobility Salivary Glands: No mass or tenderness Lips: No lesion. Oral cavity: Mucosal changes superior to the teeth and behind the two front teeth. No loose teeth. See Photo. Fractured left posterior mandibular molar. Oropharynx: No mass or lesion. Tonsillar fossa symmetric. Base of tongue soft without mass or induration. Nasopharynx: No mass or lesion with intact mucosa Hypopharynx: Intact mucosa without pooling of secretions Larynx: Full true vocal cord mobility bilaterally without lesion or mass Neck Trachea: Midline trachea. Thyroid: No mass or nodularity. Lymphatics: No lymphadenopathy. Data: No imaging. [facility] Outside Information suggestion Information displayed in this report may not trend or trigger automated decision support. SURGICAL PATHOLOGY Order: [id number] Component 2 wk ago Case Report Surgical Pathology Report Case: [id number] Authorizing Provider: Theron Cooney DDS Collected: 02/22/2025 12:45 PM Ordering Location: [facility] Main Received: 02/26/2025 07:57 AM [facility] Pathologist: Roman Peña MD Specimen: Oral, Mucosa, Biopsy, BETWEEN 8 & 9 FINAL DIAGNOSIS Between teeth #8-#9, excision: - Invasive squamous cell carcinoma, moderately differentiated. [facility] Outside Information suggestion Information displayed in this report may not trend or trigger automated decision support. SURGICAL PATHOLOGY Order: [id number] Component 3 mo ago Case Report Surgical Pathology Report Case: [id number] Authorizing Provider: Theron Cooney DDS Collected: 12/13/2024 12:10 PM Ordering Location: [facility] Main Received: 12/17/2024 07:51 PM [facility] Pathologist: Romeo Hastings MD Specimen: Gingiva, Biopsy, GINGIVA 8&9 FINAL DIAGNOSIS Gingiva between teeth #8 and #9, biopsy: - High-grade (severe) keratinizing dysplasia. - No invasive carcinoma identified. - See comment. ICD-10: K13.21 Impression/Plan: 60 y.o. male never smoker with oral cavity SCC involving the anterior gingiva and mucosa of the hard palate. Discussed the etiology and treatment of disease including recommendation for surgery +/- radiation.At this point the bone does not appear to be involved and thus recommend wide local excision anterior palate and aveolus with extraction of the anterior 4-6 teeth with burring or resection of the bone (anterior maxillectomy) and reconstruction with obturator. He also has a right lower molar that may need extraction in preparation for possible radiation. Discussed more invasive surgery if there isany lizzy involvement on CT or concern for neck disease. CT neck and chest, OPAC, case request and referral to Brandin tran. Review imaging at tumor board. Attending Physician Attestation I independently interviewed, examined and formulated the medical decision making for Smith Leroy Details of my interview, examination findings, and medical decision-making are confirmed and documentedabove which I have edited where appropriate. 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 chlorhexidine 0.12 % Solution oral solution SWAB AREA 3 TIMES A DAY SPIT OUT DO NOT SWALLOW hydroCODone-acetaminophen 5-325 MG tablet take 1 tablet by mouth every 4-6 hours as needed for pain Multiple Vitamin (MULTI-VITAMINS PO) Take by mouth. [place]-3 Fatty Acids (OMEGA 3 FISH OIL PO) Take 1,000 mg by mouth. No current facility-administered medications for this visit. documented in this [facility] Instructions* Patient Instructions* Esthela Zhu RN - 03/14/2025 9:00 AM EDT Welcome to the Head and Neck Oncology Clinic. We are here to assist you through your care at the [facility] and [facility]. Dr. Rivera is your Head and Neck Surgical Oncology doctor. It is likely that you will have other cancer doctors to assist with your care. Dr. Rivera's Primary Nurse is ADRIANA Proctor. She can be reached at [phone]. Dr. Rivrea's highway painter helper is Linnea. She can be reached at [phone]. In order to care for you in the best possible way it is very important that you have a relationshipwith a primary care doctor. If you do not have one please establish care with on in your area or [facility] at [phone] to [address] an [address] Rivera will prescribe pain medication for patients who have surgery by him for up to 6 weeks after surgery. After that time frame we will assist you to get a referral to a pain clinic or you may call your primary care doctor. If you need refills on narcotic pain medication, you may be required to be seen by a provider before refills are given. Additionally, if you are from a [facility] you may need to fill your liquid narcotic pain medication before you leave [place]. If you are on narcotic pain medication, you could become constipated so please take your bowel medication (laxative) of choice when you start narcotic pain medication. Appointments- Dr. Rivera makes every effort to run on time for your appointments therefore, if you are more than 30 minutes late unrelated to a scan or another appointment such as chemotherapy or radiation, your appointment will need to be rescheduled on another day. We appreciated your understanding. Here are the resources/team members available to you at [facility]: Speech and Language Pathologist (METAL FURNITURE REPAIRER)- may be asked by Dr. Rivera to assist you with swallowing and speaking issues. They may see you during visits with Dr. Rivera and in the hospital. Our METAL FURNITURE REPAIRER's and contact phone numbers are below: Ayanna Agrawal [phone] Yadira Hightower [phone] Torri Quinones [phone] Clair Corona [phone] Cameron Mohan [phone] Sylwia Bush [phone] Adina Graham [phone] Social Workers- KRYSTLE Mcfarlane. The clinical social worker provides counseling and information regarding Advance Directives, End of Life issues, Social Security Disability, and referrals to support groups, and other community agencies. Please let Esthela or Dr. Rivera know if you need these services. You may contact Freida at [phone] and Naa [phone]. Housing: If you need assistance with hotels/housing please call [phone]. [place] [facility] This is for patients who live in [facility] with a cancer diagnosis. The [facility] can provide rides to appointments, nutritional supplements and other services. It requires that your register for services by speaking with our head and neck social workers. If you are outside of [facility] the clinical social worker can assist you with what is available in your county. Helping Others through Peer Experiences (H.O.P.E. Program)- Connects patients or caregivers to someone who has had a similar experience with cancer treatment. This is a great source of information and support to help guide you through the treatment process. Contact information: Phone #: [phone] Email: [email or web address] Website: [email or web address]-is able to assist you with your spiritual needs. If you wish to see the hospital medicine director, please let your oncology team know so that they can arrange this. Financial Services- financial counselor at can be reached at [phone]. Cocoa Milling Machine Operator-Currently an order must be placed by Dr. Rivera to have to see the Cocoa Milling Machine Operator, Shelley Carver or Lenore Warren. If you are already seeing Shelley or Lenore Martinez, the direct phone number is [phone]. Pain Management Team is available. If Dr. Rivera feels that you need this, a referral is made and your pain care is transferred to this group. Integrative Medicine therapy-these are complementary therapies used in addition to your cancer treatment to assist with anxiety, pain, nausea, poor sleep, and exhaustion. If you wish this additional therapy please contact [email or web address] to set up an appointment. Youmay also request this in the same way if you are inpatient or ask your nurse. THERE IS NO COST FOR THIS SERVICE. [facility]- It is conveniently located on the [facility] campus on the conference level (CL) of the [facility] and [facility], next door to [facility] and near [facility]. To learn more about [facility], you can visit it on weekdays from 8 a.m. - 9 p.m. and on weekends from 9 a.m. - 6 p.m. Miscellaneous items: Family Medical Leave paperwork is available through your human resources department. Please call human resources and have them fax paperwork to ADRIANA Proctor @ [phone]. My [employer] ([employer])- is a communication tool used through the Internet to communicate NON-urgent medical information with your [facility] doctors. You may ask questions, receive results and get notification of appointments. The results will be released to the [employer]) by your doctors and will only be results that do not need additional explanation. If a discussion of the result is important your doctor or nurse will call you. If you wish to sign up this must be done in person. Our canal equipment mechanic staff can assist you to get a password that can be changed when after you log on the first time. IMPORTANT REMINDER: This portal is only for NON-urgent information. If you have urgent information about your condition please call [phone]. THERE IS A NEW [employer] ERIK FOR SMART PHONES. USE YOUR ERIK STORE AND SEARCH [employer], download theapp and follow the prompts to set up the [facility] format. Through this ERIK, you will be able to look at results, send messages and much more. Additionally, you are able tosend pictures to providers, by going to message, tap attachments and upload picture. If you need to be a patient in the hospital: IF YOUR SURGERY DISCUSSED WITH DR. RIVERA WILL REQUIRE YOU TO HAVE A TRACHEOSTOMY OR TOTAL LARYNGECTOMY (YOUR VOICEBOX REMOVED) PLEASE BRING YOUR PREFERRED WRITING METHOD WITH YOU unless prefer a pen and paper which will be provided. You will likely be unable to talk right after surgery. If you are on diabetic pill form treatment, in the hospital you will have your blood sugar checked regularly and likely will be on insulin instead of the pills. [facility] NoteGeneral Surgery Office/Clinic Note Chief Complaint consultation for positive occult stool HPI Staff 59 year old male presents on consultation from Dr. Muhammad for positive occult stool. Denies abdominal or [...] swallowing difficulties, no hearing loss, no ear infection(s),no nose bleeds. Cardiovascular: normal blood pressure, no [...] Vitamins oral tablet, 1 tab(s), Oral, Daily [place]-3 Fish Oil, 1000 mg, Oral, Daily Allergies Percocet (Nausea and vomiting) Social History Alcohol Never., 05/06/2024 Substance Abuse Never., 05/06/2024 Tobacco Never (less than 100 in lifetime) Tobacco Use:. Never Smokeless Tobacco Use:., 05/09/2024 Family History Heart disease: Father. Immunizations Vaccine Date Status Comments SARS-CoV-2 (COVID-19) mRNA-1273 vaccine 07/13/2021 Recorded 2024-04-16: TPV50 SARS-CoV-2 (COVID-19) Ad26 vaccine 11/14/2020 Recorded 2024-04-16: --SELECT [employer] POPULATION/OCCUPATION--[facility] HealthComment on above:Result Comment: Electronically Signed By: BRIAN BERNARDO, Faustino Gray\Date and Time Signed: 05/09/24 14:44 ESTEvaluation + Plan note No data available for this section [facility] note* Diagnosis Acute pain of left shoulder- Primary Cervical paraspinal muscle spasm Spasm of muscle documented in this encounter [facility]* Diagnosis Rotator cuff syndrome of left shoulder documented in this encounter [facility]* Diagnosis Rotator cuff syndrome of left shoulder- Primary documented in this encounter [facility]* Diagnosis Primary oral squamous cell carcinoma- Primary Malignant neoplasm of mouth, unspecified site Primary oral squamous cell carcinoma Malignant neoplasm of mouth, unspecified site [facility] Diagnosis Preop exam for internal medicine- Primary Other specified pre-operative examination Primary oral squamous cell carcinoma Malignant neoplasm of mouth, unspecified site Primary oral squamous cell carcinoma Malignant neoplasm of mouth, unspecified site [facility] Diagnosis Primary oral squamous cell carcinoma Malignant neoplasm of mouth, unspecified site Primary oral squamous cell carcinoma Malignant neoplasm of mouth, unspecified site [facility] Diagnosis Primary oral squamous cell carcinoma Malignant neoplasm of mouth, unspecified site Primary oral squamous cell carcinoma Malignant neoplasm of mouth, unspecified site [facility] Diagnosis Primary oral squamous cell carcinoma Malignant neoplasm of mouth, unspecified site [facility] Diagnosis Primary squamous cell carcinoma of upper gingiva- Primary S/P biopsy Other postprocedural status [facility] Diagnosis Primary squamous cell carcinoma of upper gingiva- Primary S/P biopsy Other postprocedural status Partially edentulous maxilla, unspecified edentulism class [facility] Diagnosis Rotator cuff syndrome of left shoulder Trigeminal neuralgia [facility] Diagnosis Primary squamous cell carcinoma of upper gingiva- Primary S/P biopsy Other postprocedural status Partially edentulous maxilla, unspecified edentulism class [facility] Diagnosis Primary oral squamous cell carcinoma- Primary Malignant neoplasm of mouth, unspecified site [facility] No data available for this section [facility] [email or web address] Progress note No data available for this section [facility] Reason for visit Narrative* Rehabilitation - Outpatient (Routine) - AuthorizedSpecialtyDiagnoses / ProceduresReferred By Contact Referred To ContactPhysical Therapy Diagnoses Rotator cuff syndrome of left shoulder Procedures CA OFFICE/OUTPATIENT NEW HIGH MDM 60 MINUTES Donovan Otero MD [address] [place] [address] Phone: tel: fax: Shayy Cameron, PT [address] [place] [address] Phone: tel: fax: Referral IDStatusReasonStart DateExpiration DateVisits RequestedVisits [id number] Specialty Services Required /060 [facility] for visit Narrative* Rehabilitation - Outpatient (Routine) - AuthorizedSpecialtyDiagnoses / ProceduresReferred By ContactReferred To ContactPhysical Therapy Diagnoses Rotator cuff syndrome of left shoulder Procedures CA OFFICE/OUTPATIENT NEW HIGH MDM 60 MINUTES Donovan Otero MD [address] [place] [address] Phone: tel: fax: Shayy Cameron, PT [address] [place] [address] Phone: tel: fax: Referral IDStatusReasonBuffalo DateExpiration DateVisits RequestedVisits [id number] Specialty Services Required / [facility] for visit Narrative* MRI/CAT Scan (Routine) - Closed SpecialtyDiagnoses / ProceduresReferred By ContactReferred To Contact Diagnoses Primary oral squamous cell carcinoma Procedures CT NECK WITH CONTRAST CHG CT SOFT TISSUE NECK W/CONTRAST MATERIAL Hina Velasquez, SHOSHANA [address] [place] [address] Phone: tel: fax: Referral IDStatusReasonStdarlington DateExpiration DateVisits RequestedVisits [id number]/11/202510/ [facility] for visit Narrative* MRI/CAT Scan (Routine) - ClosedSpecialtyDiagnoses / ProceduresReferred By ContactReferred To Contact Diagnoses Primary oral squamous cell carcinoma Procedures CT CHEST WITH CONTRAST CHG DIAGNOSTIC COMPUTED TOMOGRAPHY THORAX W/CONTRAST Hina Velasquez, SHOSHANA [address] [place] [address] Phone: tel: fax: Referral IDStatusReasonStart DateExpiration DateVisits RequestedVisits [id number]/11/202510/ [facility] for visit Narrative* Auth/CertSpecialtyDiagnoses / ProceduresReferred By ContactReferred To Contact Diagnoses 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 [C06.9] Procedures CA EXC LES MUCOSA & SBMCSL VESTIBULE MOUTH W/O RPR CA EXC LESION PALATE UVULA W/SMPL PRIM CLOSURE CA UNLISTED PROCEDURE DENTOALVEOLAR STRUCTURES CA MAXILLECTOMY W/O ORBITAL EXENTERATION CA DEBRIDEMENT BONE 1ST 20 SQ CM/< CA IMPRESSION&PREPARATION SURGICAL OBTURATOR PROSTH EXCISION LESION MOUTH EXCISION LESION PALATE UVULA EXTRACTION TOOTH MAXILLECTOMY W/O ORBITAL EXENTERATION DEBRIDEMENT BONE IMPRESSION/FABRICATION PROSTHESIS OBTURATOR Brandin Rivera MD, PhD [address] [place] [address] Phone: tel: fax: [facility] [address] [place] [address] Referral IDStatusReasonStart DateExpiration DateVisits RequestedVisits [id number] [facility] Summary Purpose Family History No Family History Records FoundNo Family History Records Found No data available for this section No Family History Records FoundNo Family History Records FoundNo Family History Records Found Advance Directives No Advanced Directives Records FoundDocuments on File TypeDate RecordedPatient RepresentativeExplanationHealthCare Power of Pressure Control Supervisor 03/19/2025 10:53 AMHealthcare Power of AttorneyHealthCare Power of Pressure Control Supervisor 07/18/2019Date ActivatedDate InactivatedComments03/25/2025 5:15 AMTypeDate RecordedPatient RepresentativeExplanationHealthCare Power of Attorney03/19/2025 10:53 AMHealthcare Power of AttorneyHealthCare Power of Attorney07/18/2019Date ActivatedDate InactivatedComments03/25/2025 5:15 AM Additional Source Comments (unrecognized sect ion and content) No Status Records FoundNo Status Records FoundNo Status Records FoundNo Status Records FoundNo Status Records Found INFORMATION SOURCE (unrecogn ized section and content) DATE CREATED AUTHOR 10/14/2018 [facility] DATE CREATED AUTHOR AUTHOR'S ORGANIZ ATION 06/04/2020 [facility] DATE CREATED AUTHOR AUTHOR'S ORGANIZ ATION 06/14/2024 [facility] DATE CREATED AUTHOR AUTHOR'S ORGANIZ ATION 03/01/2025 [facility] DATE CREATED AUTHOR AUTHOR'S ORGANIZ ATION 04/20/2025 [facility] Patient Care team informatio n (unrecognized section and content) Team MemberRelationshipSpecialtyStart DateEnd Date Panda Muhammad MD [address] [place] [address] PCP - GeneralFamily Medicine02/19/25Team MemberRelationshipSpecialtyStart DateEnd Date Panda Muhammad MD [address] [place] [address] PCP - GeneralFamily Medicine02/19/25Team MemberRelationshipSpecialtyStart DateEnd Date Panda Muhammad MD [address] [place] [address] PCP - GeneralFamily Medicine02/19/25Team MemberRelationshipSpecialtyStart DateEnd Date Panda Muhammad MD [address] [facility] [place] [address] [place] [address] PCP - GeneralFamily Medicine03/14/25Team MemberRelationshipSpecialtyStart DateEnd Date Panda Muhammad MD [address] [facility] [place] [address] [place] [address] PCP - GeneralFamily Medicine03/14/25Team MemberRelationshipSpecialtyStart DateEnd Date Panda Muhammad MD [address] [facility] [place] [address] [place] [address] PCP - GeneralFamily Medicine03/14/25Team MemberRelationshipSpecialtyStart DateEnd Date Panda Muhammad MD [address] [facility] [place] [address] [place] [address] PCP - GeneralFamily Medicine03/14/25Team MemberRelationshipSpecialtyStart DateEnd Date Panda Muhammad MD [address] [facility] [place] [address] PCP - GeneralFamily Medicine03/14/25Team MemberRelationshipSpecialtyStart DateEnd Date Panda Muhammad MD [address] [facility] [place] [address] PCP - GeneralFamily Medicine03/14/25Team MemberRelationshipSpecialtyStart DateEnd Date Panda Muhammad MD [address] [facility] [place] [address] PCP - GeneralFamily Medicine02/19/25Team MemberRelationshipSpecialtyStart DateEnd Date Panda Muhammad MD [address] [facility] [place] [address] PCP - GeneralFami Medicine03/14/25 Reason for Visit (unrecogniz ed section and content) ReasonCommentsNew PatientSpecialtyDiagnoses / ProceduresReferred By Contact Referred To ContactOtolaryngology Diagnoses ref- Dr. Cooney- [facility] keratiniving dysplasia upper gum path-y- [facility] imag-y- [place] Procedures NEW PATIENT W/ SCOPE Theron Cooney, KASEYS [address] [place] [address] Phone: tel: fax: Brandin Rivera MD, PhD [address] [place] [address] Phone: tel: fax: Referral IDStatusReasonStart DateExpiration DateVisits RequestedVisits [id number]/11/202510/6/[id number]-bjbeilram ConsultationSpecialtyDiagnoses / ProceduresReferred By ContactReferred To ContactPreOp Diagnoses Primary oral squamous cell carcinoma Hina Velasquez PA-C [address] [place] [address] Phone: tel: fax: Referral IDStatusReasonStart DateExpiration DateVisits RequestedVisits [id number] Patient Pre-surgicalSpecialtyDiagnoses / ProceduresReferred By ContactReferred To ContactDentistry Diagnoses Primary oral squamous cell carcinoma Hina Velasquez PA-C [address] [place] [address] Phone: tel: fax: Referral IDStatusReasonStart DateExpiration DateVisits RequestedVisits [id number] Request/[id number] Op Visit UnpackingReasonCommentsPost Op VisitCheck healing maxillaReasonCommentsPost Op Visit Scheduled Active and Recently Administ ered Medications (unrecognized section and content) Medication Order/ Acetaminophen (TYLENOL) tablet 975 mg (COMPLETED)(Linked Group 1) 975 mg, Oral, ONCE, 1 dose, On Tue03/25/25 at 0530, Administer 2 hours prior to surgery., Pre-op/Pre-Proc * 0548 (Given - Provider: Felicia Mchugh RN) Amoxicillin-clavulanate (AUGMENTIN) 250-125 MG per tablet 1 tablet 1 tablet, Oral, EVERY 12 HOURS, First dose on Tue03/25/25 at 2100, Until Discontinued Heparin injection 5,000 Units (COMPLETED) 5,000 Units, Subcutaneous, PRE-OP, 1 dose, On Tue03/25/25 at 0530, Pre-op/Pre-Proc * 0626 (Given - Provider: Felicia Mchugh RN) Scopolamine (TRANSDERM-SCOP) patch 1 patch(Linked Group 2) 1 patch, Transdermal, EVERY 72 HOURS, First dose on Tue03/25/25 at 1430, Until Discontinued, Apply patch to site behind the ear. Rotate sites for each application. Do not cut or alter patch. Each patch delivers 1 mg over 72 hours. * 1415 (Patch Applied - Provider: Felicia Mchugh RN) * 1619 (Due: Patch Removed - Provider: System Discharge - Comment: Time automatically adjusted from order being discontinued) VERIFY LINKED PATCH PLACEMENT(Linked Group 2) Other, EVERY 12 HOURS, First dose on Tue03/25/25 at 2100, Until Discontinued, Confirm continued adhesion of scopolamine 1.5 mg/72hr patch at documented site. Medication Order/ Lactated ringers IV solution Intravenous, at 50 mL/hr, CONTINUOUS, Starting on Tue03/25/25 at 0530, Until Tue03/25/25 at 1819, Pre-op/Pre-Proc * 0548 ($$New Bag$$ - Provider: Felicia Mchugh RN) * 0718 (Paused - Provider: ARANZA Frye - Comment: Switch to gravity) * 0719 (Restarted - Provider: ARANZA Frye) * 0938 ($$New Bag$$ - Provider: ARANZA Frye) * 1026 (Anesthesia Volume Adjustment - Provider: ARANZA Frye) * 1048 (Anesthesia Volume Adjustment - Provider: ARANZA Frye) Lactated ringers IV solution Intravenous, at 100 mL/hr, CONTINUOUS, Starting on Tue03/25/25 at 1215, Until Tue03/25/25 at 1819, Saline lock when tolerating oral intake and remove IV per ASU protocol., Post-op/Post-Proc * 1215 (Canceled Entry - Provider: System Discharge - Comment: Automatically canceled at discontinue of medication order) Medication Order// Acetaminophen (TYLENOL) tablet 650 mg 650 mg, Oral, EVERY 4 HOURS NEEDED, Starting on Tue03/25/25 at 1205, Until Tue03/25/25 at 1819, Mild Pain, Maximum dose of acetaminophen is 4000 mg from all sources in 24 hours., Post-op/Post-Proc * 1309 (Given - Provider: Felicia Mchugh RN) ceFAZolin (ANCEF) 2 g in dextrose 100 mL premix IVPB (COMPLETED) 2 g, Intravenous, Administer over 30 Minutes, STATISTICAL ENGINEER TO PROCEDURE, 1 dose, Starting on Tue03/25/25at 0515, Until Tue03/25/25 at 0734, Other, Surgical Prophylaxis, Initiate antibiotic based on infusion time to complete administration 30-60 minutes prior to surgical incision. , Pre-op/Pre-Proc * 0729 ($$New Bag$$ - Provider: Alexsandra Ferrera WOOD TYPE FINISHER-WEED ERADICATOR) chlorhexidine (PERIDEX) 0.12 % oral solution (CANCELED) NEEDED, Starting on Tue03/25/25 at 0750, Until Tue03/25/25 at 1049, Intra-op/Intra-Proc * 0750 (Given - Provider: Alba Roman MD) Haloperidol lactate (HALDOL) injection 1 mg 1 mg, Intravenous, EVERY 1 HOUR NEEDED, 2 doses, Starting on Tue03/25/25 at 1028, Until Tue03/25/25 at 1819, Nausea, SECOND line antiemetic, Recovery HYDROmorphone (DILAUDID) injection 0.5 mg 0.5 mg, Intravenous, EVERY 10 MINUTES NEEDED, 8 doses, Starting on Tue03/25/25 at 1028, Until Tue03/25/25 at 181, Moderate Pain, Severe Pain, Mild Pain, May give a total of 4mg in PACU., Recovery * 1123 (Given - Provider: Lenore Charlton RN) Ibuprofen (MOTRIN) tablet 400 mg 400 mg, Oral, EVERY 6 HOURS NEEDED, Starting on Tue03/25/25 at 1205, Until Tue03/25/25 at 181, Mild Pain, Give with food, Post-op/Post-Proc * 1309 (Given - Provider: Felicia Mchguh RN) Labetalol (NORMODYNE) injection 5 mg 5 mg, Intravenous, EVERY 15 MINUTES NEEDED, Starting on Tue03/25/25 at 1028, Until Tue03/25/25 at 1819, FIRST line HTN. , For SBP > 180 Hold if HR < 60 and give SECOND line agent. May give atotal of 20 mg while in PACU. If blood pressure uncontrolled after 20mg of labetalol administered, use second line agent or notify MD. For vials: labetalol should be treated as a SINGLE USE VIAL. Discard remaining contents after one use., Recovery Lidocaine-epinephrine 1%-1:057758 injection (CANCELED) NEEDED, Starting on Tue03/25/25 at 0810, Until Tue03/25/25 at 1049, Intra-op/Intra-Proc * 0810 (Given - Provider: Martina Mills, DMD - Comment: palate) metroNIDAZOLE (FLAGYL) 500 mg in NaCl premix IVPB (COMPLETED) 500 mg, Intravenous, at 200 mL/hr, Administer over 30 Minutes, STATISTICAL ENGINEER TO PROCEDURE, 1 dose, Starting on Tue03/25/25 at 0515, Until Tue03/25/25 at 0744, Other, Surgical Prophylaxis, Initiate antibiotic based on infusion time to complete administration 30-60 minutes prior to surgical incision. , Pre- op/Pre-Proc * 0739 ($$New Bag$$ - Provider: Alexsandra Ferrera APRN-WEED ERADICATOR) Ondansetron 4mg/2ml (ZOFRAN) injection 4 mg (CANCELED) 4 mg, Intravenous, EVERY 4 HOURS NEEDED, Starting on Tue03/25/25 at 1205, Until Tue03/25/25 at 1357, Nausea / Vomiting, 1st line, Post-op/Post-Proc * 1211 (Given - Provider: Felicia Mchugh RN) Ondansetron 4mg/2ml (ZOFRAN) injection 8 mg 8 mg, Intravenous, EVERY 4 HOURS NEEDED, Starting on Tue03/25/25 at 1357, Until Tue03/25/25 at 1819, Nausea / Vomiting, 1st line, Post-op/Post-Proc Prochlorperazine (COMPAZINE) injection 5 mg (CANCELED) 5 mg, Intravenous, EVERY 1 HOUR NEEDED, 2 doses, Starting on Tue03/25/25 at 1028, Until Tue03/25/25 at 1357, Nausea / Vomiting, FIRST Line antiemetic, Do not administer within 6 hours of intra-operative dose. Maximum 40mg/day. For IV route: Give undiluted by slow IV push at a rate of 5 mg/min., Recovery * 1234 (Given - Provider: Felicia Mchugh RN) Prochlorperazine (COMPAZINE) injection 5 mg 5 mg, Intravenous, EVERY 1 HOUR NEEDED, 1 dose, Starting on Tue03/25/25 at 1358, Until Tue03/25/25 at 1819, Nausea / Vomiting, FIRST Line antiemetic, Do not administer within 6 hours of intra-operative dose. Maximum 40mg/day. For IV route: Give undiluted by slow IV push at a rate of 5 mg/min., Recovery Sodium chloride 0.9 % irrigation (CANCELED) NEEDED, Starting on Tue03/25/25 at 1027, Until Tue03/25/25 at 1049, Intra-op/Intra-Proc * 1027 (Given - Provider: Brandin Rivera MD, PhD) Order Group 1: Acetaminophen (TYLENOL) tablet 975 mg (COMPLETED)Jump to med 975 mg, Oral, ONCE, 1 dose, On Tue03/25/25 at 0530, Administer 2 hours prior to surgery., Pre-op/Pre-Proc Or Acetaminophen (TYLENOL) oral solution 975 mg (COMPLETED) 975 mg, Per NG tube, ONCE, 1 dose, On Tue03/25/25 at 0530, Administer 2 hours prior to surgery., Pre-op/Pre-Proc Or Acetaminophen (TYLENOL) oral solution 975 mg (COMPLETED) 975 mg, PEG Tube, ONCE, 1 dose, On Tue03/25/25 at 0530, Administer 2 hours prior to surgery., Pre-op/Pre-Proc Group 2: Scopolamine (TRANSDERM-SCOP) patch 1 patchJump to med 1 patch, Transdermal, EVERY 72 HOURS, First dose on Tue03/25/25 at 1430, Until Discontinued, Apply patch to site behind the ear. Rotate sites for each application. Do not cut or alter patch. Each patch delivers 1 mg over 72 hours. And VERIFY LINKED PATCH PLACEMENTJump to med Other, EVERY 12 HOURS, First dose on Tue03/25/25 at 2100, Until Discontinued, Confirm continued adhesion of scopolamine 1.5 mg/72hr patch at documented site. FOR RECORDS PERTAINING TO PATIENTS WHO ARE [...] BE BASED ON THE PRIMARY CLINICAL RECORDS. [employer] [facility]. provides no warranty or guarantee of the accuracy or completeness of information in this document.
== END 2025-04-30 14:30 | disposition home or self-care (01) ==
LOC: MRI 14:29
PROVIDERS: PCP Family Medicine; Visit Provider Family Medicine
DX: M75.102 Unspecified rotator cuff tear or rupture of left shoulder, not specified as traumatic (principal); M75.122 Complete rotator cuff tear or rupture of left shoulder, not specified as traumatic
CPT/HCPCS: 73221